=== PATIENT | male | born 1955 | race Caucasian/White ===

== ENCOUNTER 2016-11-09 12:36 | Inpatient (IN) | payer OTHER, MEDICARE ==
[~2016-11-09] VITALS: Ht 165.1 cm; Wt 70.8 kg
[~2016-11-09 12:36] MED LIST: ALPRAZOLAM0.5 M4 PO; ATIVAN0.5 M1 PO; CALTRATE 600 +1 EACH PO; COLACE100 M1 PO; DURAGESIC1 EAC1 TOP; DURAGESIC1 EAC3 TOP; FENTANYL1 EAC2 TOP; FENTANYL1 EAC3 TOP; FLUOXETINE HCL20 M2 PO; GUAIFENESIN ER600 MG PO; HYDROMORPHONE HC4 M1 PO; KETOROLAC TROME10 M1 PO; LEVAQUIN500 M1 PO; MIRALAX17 G1 PO; OXYCODONE HCL15 M1 PO; OXYCODONE HCL5 M2 PO; OXYCONTIN20 M1 PO; PREDNISONE5 M1 PO; REMERON15 M2 PO; VITAMIN D31000 UNI2 PO; ZOFRAN ODT4 M1 SL
--- NOTE | 2016-11-09 12:43 | NUR ---
PT STATES PAIN ALL OVER DUE TO BONE CANCER.
--- NOTE | 2016-11-09 12:54 | NUR ---
PT MOVED DIRECTLY FROM TRIAGE TO A STRETCHER IN THE [place] , PT THEN MOVED DIRECTLY TO ROOM SOON ONE OPENED UP . PTS COMPLAINING TO THIS NURSE AND TRIAGE NURSE THAT SHE WAS VERY UPSET WITH THE STAFF FROM THE LAST VISIT AND THAT HE WAS IN THE WAITING ROOM TO LONG AND HAD TO LAY ON THE FLOOR , DUE TO HIS PAIN. PT SHOWING THE TRIAGE NURSE PICTURES ON HER PHONE OF THE PATIENT LAYING ON THE FLOOR.
--- NOTE | 2016-11-09 13:13 | NUR ---
PT CHANGED INTO GOWN. REPORTS PAIN PRIMARILY TO JOINTS AND ARMS/LEGS. DIFFICULTY WALKING TODAY. PER "HE REALLY NEEDS A SHOT OF SOMETHING FOR PAIN." AND HE RECENTLY HAD BLOOD TRASFUSION THIS PAST WEEK. PIN ATTACHER/ONCOLOGIST IS DR RAMIREZ. PT DENIES CP OR SOB, SINUS TACH 110 ON CM. LIGHTS DIMMED FOR COMFORT AND TV ON PER REQUEST. AWARE OF PLAN FOR EVAL BY MD PRIOR TO MEDICATION INTERVENTION
--- NOTE | 2016-11-09 13:41 | NUR ---
INFORMED WAITING PROVIDED REGARDING EVAL BY MD WHO WILL BE IN SHORTLY. PT IS CALM AND COMFORTABLE AT THIS TIME WHILE NOT MOVING. AT BEDSIDE FOR SUPPORT
--- NOTE | 2016-11-09 13:56 | NUR ---
DR CRUZ IN ROOM FOR EVALUATION
--- NOTE | 2016-11-09 14:05 | ED GENERAL ADULT ---
History of Present Illness General Chief Complaint: General Adult Stated Complaint: PER , "HAS PAIN DUE TO BONE CANCER" Source: patient, family, old records Exam Limitations: no limitations Vital Signs & Intake/Output Vital Signs & Intake/Output Vital Signs Date Time Temp Pulse Resp B/P Pulse O2 O2 Flow FiO2 Ox Delivery Rate 11/09 1828 98.9 98 18 116/62 98 Room Air 11/09 1655 100.0 11/09 1618 101.0 11/09 1542 101.0 120 18 118/70 94 Room Air 11/09 1501 98.9 112 18 124/63 99 Room Air 11/09 1316 97 Room Air 11/09 1241 97.9 111 22 121/83 97 Room Air Allergies Coded Allergies: clams (Intermediate, UNKNOWN REACTION TO RAW CLAMS 09/04/16) Reconcile Medications Calcium Carbonate/Vitamin D3 (Caltrate 600 + D Tablet) 1 EACH TABLET 1 TAB PO BID SUPPLEMENT (Reported) Cholecalciferol (Vitamin D3) 1,000 UNIT TABLET 2 TAB PO DAILY SUPPLEMENT ( Reported) Docusate Sodium (Colace) 100 MG CAPSULE 1 CAP PO BID STOOL SOFTENER (Reported ) Fentanyl Citrate (Duragesic) 75 MCG/HOUR PATCH.TD72 1 PAT TOP Q72H SEVERE PAIN Fluoxetine HCl 20 MG CAPSULE 1 CAP PO DAILY MENTAL HEALTH (Reported) Lorazepam (Ativan) 0.5 MG TABLET 2 TAB PO QPM PRN ANXIETY (Reported) Ondansetron (Zofran Odt) 4 MG TAB.RAPDIS 1 TAB SL TID PRN NAUSEA/VOMITING ( Reported) Oxycodone HCl 15 MG TABLET 1 TAB PO Q4 PAIN (Reported) Polyethylene Glycol 3350 (Miralax) 17 GM POWD.PACK 1 PAC PO DAILY CONSTIPATION (Reported) dissolve in water Triage Note: PT STATES PAIN ALL OVER DUE TO BONE CANCER. Triage Nurses Notes Reviewed? yes HPI: Patient presents for evaluation of severe diffuse bone pain secondary to metastatic prostate cancer. Patient's pain is constant and severe sharp and stabbing. There is nothing that seems to make his pain feel better including narcotic pain relievers by mouth. His pain worsens with virtually any movement and he is severely debilitated by pain. Past History Travel History Traveled to [place] past 21 day No Medical History Any Pertinent Medical History? see below for history Neurological: NONE EENT: NONE Cardiovascular: NONE Respiratory: NONE Gastrointestinal: CONSTIPATION Hepatic: NONE Renal: NONE Musculoskeletal: ARTHRITIS METASTATIC CA TO BONE Psychiatric: NONE Endocrine: NONE Blood Disorders: NONE Cancer(s): METASTATIC PROSTATE CA BONE CA History of MRSA: No History of VRE: No History of CDIFF: No Surgical History Surgical History: non-contributory Psychosocial History Who do you live with Family What is your primary language Irish Tobacco Use: Quit >30 days ago ETOH Use: denies use Illicit Drug Use: denies illicit drug use Family History Family History, If Any: MOTHER (Diabetes mellitus). SISTER (Breast cancer). Hx Contributory? No Review of Systems Review of Systems Constitutional: Reports: no symptoms. EENTM: Reports: no symptoms. Respiratory: Reports: no symptoms. Cardiovascular: Reports: no symptoms. GI: Reports: no symptoms. Genitourinary: Reports: no symptoms. Musculoskeletal: Reports: see HPI. Skin: Reports: no symptoms. Neurological/Psychological: Reports: no symptoms. Hematologic/Endocrine: Reports: no symptoms. Immunologic/Allergic: Reports: no symptoms. All Other Systems: Reviewed and Negative Physical Exam Physical Exam General Appearance: SEE BELOW Comments: Gen.: Well-nourished, well-developed, no acute respiratory distress. Mild distress at rest, severe distress with movement. Head: Normocephalic, atraumatic. Eyes: Normal inspection bilaterally Ears: Normal inspection bilaterally Nose: Normal inspection Throat/mouth : Moist mucosa Neck: Supple, full range of motion, no goiter Heart: Regular rate and rhythm, no murmurs rubs or gallops Lungs: Clear to auscultation bilaterally with normal air entry Chest: Nontender Back: Normal range of motion Abdomen: Soft, nontender, nondistended, normal bowel sounds Extremities: Decreased range of motion secondary to pain, equal radial pulses, no cyanosis clubbing or edema Neurologic: Cranial nerves grossly intact, speech is clear Skin: warm and dry Psychiatric: Calm, cooperative, no apparent delusions or hallucinations Core Measures ACS in differential dx? No CVA/TIA Diagnosis: No Severe Sepsis Present: No Septic Shock Present: No Progress Differential Diagnoses I considered the following diagnoses in my evaluation of the patient: Chronic pain, pneumonia, UTI, bacteremia Plan of Care: Orders Procedure Date/time Status LACTIC ACID 11/09 2205 Active Admit to inpatient 11/09 1908 Active LACTIC ACID 11/09 1905 Active Add-on Test (ER Only) 11/09 1558 Active CULTURE,URINE 11/09 1548 Active BLOOD CULTURE 11/09 1548 Active URINALYSIS 11/09 1548 Complete COMPREHENSIVE METABOLIC PANEL 11/09 1503 Complete CBC WITHOUT DIFFERENTIAL 11/09 1404 Complete Laboratory Tests 11/09/16 1631: Urinalysis LIGHT H, Urine Color YEL, Urine Clarity CLEAR, Urine pH 6.5, Ur Specific [place] 1.020, Urine Protein 30 H, Urine Ketones NEG, Urine Nitrite NEG, Urine Bilirubin NEG, Urine Urobilinogen 0.2, Ur Leukocyte Esterase NEG, Ur Microscopic SEDIMENT EXAMINED, Urine RBC 1-3, Urine WBC RARE, Ur Epithelial Cells FEW, Urine Mucus FEW, Urine Hemoglobin SMALL H, Urine Glucose NEG 11/09/16 1548: Sodium Cancelled, Potassium Cancelled, Chloride Cancelled, Carbon Dioxide Cancelled, Anion Gap Cancelled, BUN Cancelled, Creatinine Cancelled, BUN/ Creatinine Ratio Cancelled, Glucose Cancelled, Calcium Cancelled, Total Bilirubin Cancelled, AST Cancelled, ALT Cancelled, Alkaline Phosphatase Cancelled, Total Protein Cancelled, Albumin Cancelled, Globulin Cancelled, Albumin/Globulin Ratio Cancelled 11/09/16 1503: Anion Gap 7, Estimated GFR > 60, BUN/Creatinine Ratio 26.0 H, Glucose 108 H, Calcium 8.8, Total Bilirubin 0.6, AST 104 H, ALT 29, Alkaline Phosphatase 584 H, Total Protein 5.7 L, Albumin 3.3 L, Globulin 2.4, Albumin/Globulin Ratio 1.4, CBC w Diff MAN DIFF ORDERED, RBC 3.15 L, MCV 83.7, MCH 28.3, RDW 18.8 H, MPV 7.2 L, Gran % 90.8 H, Lymphocytes % 5.2 L, Monocytes % 3.6, Eosinophils % 0.2, Basophils % 0.2, Absolute Granulocytes 7.1 H, Segmented Neutrophils 78 H, Band Neutrophils 8 H, Absolute Lymphocytes 0.4 L, Lymphocytes 6 L, Monocytes 6, Absolute Monocytes 0.3, Absolute Eosinophils 0, Basophils 1, Absolute Basophils 0, Metamyelocytes 1, Nucleated RBCs 2 H, Platelet Estimate ADEQUATE, Hypochromic-Microcytic 1+, Poikilocytosis 2+, Anisocytosis 1+, Ovalocytes , Elliptocytes , PUBS MCHC 33.7 Microbiology 11/09 1810 BLOOD: Blood Culture - RECD 11/09 1645 BLOOD: Blood Culture - RECD 11/09 1631 URINE ROUT: Urine Culture - RECD Diagnostic Imaging: Discussed w/RAD: Radiology Read. CXR Impression: PATIENT: RACQUEL RAO PRESENT AGE : 61 PATIENT ACCOUNT NO: [id number] : 56 LOCATION: [facility] ORDERING PHYSICIAN: TARSHA CRUZ MD SERVICE DATE: 11/09/166043 EXAM TYPE: RAD - XRY-PORTABLE CHEST XRAY EXAMINATION: XR PORTABLE CHEST CLINICAL INFORMATION: Fever. History of prostate cancer to bone. COMPARISON: Chest radiography 2015. TECHNIQUE: Portable AP view of the chest was obtained. FINDINGS: Right subclavian Port-A-Cath. Radiodensities overlying the right thorax are presumably external to the patient. The lungs are fairly well expanded. No definitive new lobar consolidation to suggest pneumonia. Persistent mild streaky bibasilar opacities may represent atelectasis. No mediastinal widening. Diffuse sclerotic osseous metastatic disease. IMPRESSION: 1. No convincing evidence of pneumonia. 2. Persistent bibasilar streaky opacification may represent atelectasis. 3. Diffuse osseous sclerotic metastatic disease. DICTATED BY: HALINA BALL MD DATE/TIME DICTATED:11/09/161631 CERAMIC CHEMIST:MISTY DATE/TIME TRANSCRIBED:11/09/161631 CONFIDENTIAL, DO NOT COPY WITHOUT APPROPRIATE AUTHORIZATION. <Electronically signed in Other Vendor System> SIGNED BY: HALINA BALL MD 11/09/16 164 Initial ED EKG: none Comments: 11/09/2016 5:55:33 PM racquel and his have been updated on test results. He is still experiencing diffuse bone pain. It is not clear if his IV is functional at this point and it will need to be repositioned. Once this is done the patient will receive IV antibiotics and additional pain medication. 11/09/2016 7:04:31 PM patient's case discussed with Dr. Mckeon. Patient will be admitted and treated with IV antibiotics to prevent sepsis (I do not feel the patient is septic at this time). His fever and tachycardia have resolved with a dose of acetaminophen. I feel his clinical presentation is also inconsistent with sepsis. Departure Departure Disposition: STILL A PATIENT Condition: Stable Clinical Impression Primary Impression: Fever Qualifiers: Fever type: unspecified Qualified Code: R50.9 - Fever, unspecified Secondary Impressions: Intractable pain, Prostate cancer metastatic to bone Referrals: SARAH ABRAHAM,PATRICE Lopez (PCP/Family) Departure Forms: Customer Survey General Discharge Information Admission Note Spoke With: BEBE MCKEON MD Documentation of Exam: Documentation of any treatments & extenuating circumstances including Concerns Regarding Discharge (functional status, medication knowledge or non-compliance, living conditions, etc.) that warrant an admission rather than observation: Patient has a debilitating combination of intractable back pain requiring IV narcotic pain relievers along with relative immune compromise and fever. This patient is at very high risk of overwhelming sepsis and . He is not a good candidate for outpatient management given this and the fact that he has a debilitating bone pain secondary to metastatic prostate cancer that is severely compromised his ability to move. I feel he would have great difficulty in complying with outpatient treatment. He very likely would return in worse clinical condition. I feel he now requires an aggressive management with IV antibiotics and close clinical monitoring of vital signs and temperature. Culture results should be followed and treated accordingly. He should also have IV narcotic pain relievers and pain management consultation. Given his difficulty in moving, physical therapy consultation should also be obtained. Feel he will require a multiple day hospitalization. Critical Care Note Critical Care Note Critical Care Time: 30-74 min
--- NOTE | 2016-11-09 14:59 | NUR ---
PORT ACCESSED WITH 1.5INCH 20G POWER PORT. FLUSHES WELL, NO BLOOD RETURN. PT MEDICATED PER eMAR FOR PAIN
--- NOTE | 2016-11-09 15:06 | NUR ---
BLOOD DRAWN AND SENT TO LAB. SST,LAV,BLUE
[2016-11-09 15:13] LABS: ABSOLUTE BASOPHIL COUNT 0 /CUMM (0.0-0.2); ABSOLUTE EOSINOPHIL COUNT 0 /CUMM (0.0-0.7); ABSOLUTE GRANULOCYTE CT 7.1 /CUMM (1.4-6.5); ABSOLUTE LYMPH COUNT 0.4 /CUMM (1.2-3.4); ABSOLUTE MONOCYTE COUNT 0.3 /CUMM (0.10-0.60); BASOPHIL % 0.2 % (0.0-2.0); EOSINOPHIL % 0.2 % (0-5); GRANULOCYTE % 90.8 % (42.2-75.2); HEMATOCRIT 26.4 % (42-52); MEAN CORPUSCULAR HGB 28.3 PG (27.0-31.0); MEAN CORPUSCULAR HGB CONC 33.7 G/DL (33.0-37.0); MEAN CORPUSCULAR VOLUME 83.7 FL (80.0-94.0); MEAN PLATELET VOLUME 7.2 FL (7.4-10.4); PLATELET COUNT 182 /CUMM (130-400); RBC DISTRIBUTION WIDTH 18.8 % (11.5-14.5); RED BLOOD CELL CT 3.15 /CUMM (4.70-6.10); WHITE BLOOD CELL COUNT 7.8 /CUMM (4.8-10.8)
--- NOTE | 2016-11-09 16:18 | NUR ---
IV ACETOMINOPHEN STARTED. PT SENT TO RADIOLOGY. ASKED PT IF HIS PAIN IS IMPROVED AND HE STATES HE DOES NOT KNOW BECAUSE HE HASNT TRIED TO MOVE YET. STATES NO PAIN AT REST
--- NOTE | 2016-11-09 16:32 | NUR ---
PT NOT TAKEN TO XRAY, PCXR DONE. PT STOOD TO VOID. COMPLAINED OF PAIN IN MULTIPLE PLACES, RIGHT LEG, BACK, SHOULDERS WITH MOVEMENT. ASSISTED BACK ON TO STRETCHER IN COMFORTABLE POSITION. IVF STARTED AT 150CC/HR. DR CRUZ IN TO SEE PT AND IS AWARE OF PT COMPLAINTS OF PAIN WITH MOVEMENT
--- NOTE | 2016-11-09 16:36 | NUR ---
URINE TRIO SENT TO LAB.
--- NOTE | 2016-11-09 16:46 | RADIOLOGY REPORT ---
EXAMINATION: XR PORTABLE CHEST CLINICAL INFORMATION: Fever. History of prostate cancer to bone. COMPARISON: Chest radiography 09/04/2016. TECHNIQUE: Portable AP view of the chest was obtained. FINDINGS: Right subclavian Port-A-Cath. Radiodensities overlying the right thorax are presumably external to the patient. The lungs are fairly well expanded. No definitive new lobar consolidation to suggest pneumonia. Persistent mild streaky bibasilar opacities may represent atelectasis. No mediastinal widening. Diffuse sclerotic osseous metastatic disease. IMPRESSION: 1. No convincing evidence of pneumonia. 2. Persistent bibasilar streaky opacification may represent atelectasis. 3. Diffuse osseous sclerotic metastatic disease.
--- NOTE | 2016-11-09 17:48 | NUR ---
DR CRUZ IN TO SEE PT AND DISCUSS PLAN TO ADMIT. PORT A CATH OBSERVED AND NOTED TO HAVE SOFT SWELLING AROUND INSERTION SITE. ATTEMPTED TO DRAW BACK BLOOD RETURN, UNABLE TO GET BLOOD RETURN. WILL REMOVE NEEDLE AND REINSERT NEW LINE. DR CRUZ AWARE OF ABOVE STATEMENTS
--- NOTE | 2016-11-09 18:24 | NUR ---
NEW PORT A CATH NEEDLE INSERTED. BLOOD RETURN OBTAINED UPON ISERTION
--- NOTE | 2016-11-09 18:34 | NUR ---
PT REQUESTING PRIVATE ROOM WHEN ADMITTED. PLAN NURSE NOTIFIED.
--- NOTE | 2016-11-09 20:05 | NUR ---
PT RESTING QUIELTY, TALKING WITH FAMILY. LESS ANXIOUS THEN EARLIER. STATES ONLY PARTIAL PAIN RELIEF WITH DILAUDID THAT WAS GIVEN. DR MORALEZ NOTIFIED AND ADDITIONAL DOSE OF DILAUDID GIVEN.
--- NOTE | 2016-11-09 20:30 | NUR ---
HOUSE STAFF AT BEDSIDE FOR PT EVAL
--- NOTE | 2016-11-09 20:53 | NUR ---
PT HAS BED ASSIGNMENT 217
--- NOTE | 2016-11-09 21:06 | NUR ---
PT ASSISTED TO STAND FOR USE OF URINAL, PT BACK IN BED, REPOSITIONED FOR COMFORT, HOUSE STAFF AT BEDSIDE
[2016-11-09] MEDS ORDERED: LORAZEPAM0.5 M1 PO (21:33)
--- NOTE | 2016-11-09 21:41 | NUR ---
REPORT GIVEN TO [facility] ON [address] [place] [address]. PT TO BE MEDICATED WITH OXYCODONE PRIOR TO TRANSFER. VERIFIED PT HAS FENTANYL PATCH ON UPPER LEFT BACK NEAR SHOULDER BLADE. [facility] RN ON [address] [place] [address] NOTIFIED OF THIS.
--- NOTE | 2016-11-09 21:52 | NUR ---
PT WITH DECREASED SWELLING IN RIGHT CHEST AROUND PORT A CATH.
--- NOTE | 2016-11-09 22:02 | NUR ---
DISTRIBUTION HERE FOR TRANSPORT
--- NOTE | 2016-11-09 22:08 | Admission Certification ---
Admission Certification Certification Statement - As attending physician, I certify that at the time of - admission, based on clinical presentation, severity of - symptoms, need for further diagnostic testing and - therapeutic interventions, and risk of adverse outcomes - without in-hospital treatment, in my clinical assessment, - this patient requires an acute hospital stay for a minimum - of two nights or longer. I have also considered psychsocial - factors such as support system, advanced age, financial - issues, cognitive issues, and failed out-patient treatments, - past re-admission history, safety of patient, and lack of - compliance as applicable. Specific rationale supporting this admission is: Weakness, inability to ambulate, diffuse bone pain in this patient with stage 4 prostate cancer undergoing chemotherapy. Also, noted to have fever of 101 - SIRS without a clear source of infection.
[2016-11-09 22:29] VITALS: BP 122/72
--- NOTE | 2016-11-09 23:42 | History & Physical ---
GERALD SMITH 11/09/16 3941: General Information and HPI MD Statement: I have seen and personally examined RACQUEL RAO and documented this H&P. The patient is a 61 year old M who presented with a patient stated chief complaint of []. Source of Information: patient, family, old records Exam Limitations: no limitations History of Present Illness: He is 61-year-old man with past medical history of advanced hormone refractory prostate cancer with bone metastasis status post radiotherapy in 2016 for 6 months and on chemotherapy, mitoxantrone, every 3 weeks. Last chemotherapy was on October 17. Patient has an appointment with radiation oncologist for nuclear treatment on Thursday this week. He also has history of anxiety/depression and diffuse bone pain taking fentanyl and oxycodone at home. He presented to ER with complaint of generalized bone pain and inability to walk today because of severe pain. He describes pain as constant and stabbing, 10/10 in intensity. He feels pain whenever he tries to move. Patient also spiked temperature to 101 while in ER. Per patient had fever of 101 couple of weeks ago but she did not bring him here or called oncologist, Dr. Montilla. Currently patient reports some tingling sensation in his abdomen and chronic cough and denies any chest pain or discomfort, palpitations, dizziness or lightheadedness, breathing difficulty, nausea, vomiting, diarrhea, constipation, any urinary symptoms. Patient had history of anemia and got 2 units of blood transfusions last week and one week prior to blood transfusion he got filgrastim for neutropenia. Patient lives with his family. No history of smoking, alcohol, illicit drug use. Allergies/Medications Allergies: Coded Allergies: clams (Intermediate, UNKNOWN REACTION TO RAW CLAMS 09/04/16) Home Med list Calcium Carbonate/Vitamin D3 (Caltrate 600 + D Tablet) 1 EACH TABLET 1 TAB PO BID SUPPLEMENT (Reported) Cholecalciferol (Vitamin D3) 1,000 UNIT TABLET 2 TAB PO DAILY SUPPLEMENT ( Reported) Docusate Sodium (Colace) 100 MG CAPSULE 1 CAP PO BID STOOL SOFTENER (Reported ) Fentanyl Citrate (Duragesic) 75 MCG/HOUR PATCH.TD72 1 PAT TOP Q72H SEVERE PAIN Fluoxetine HCl 20 MG CAPSULE 1 CAP PO DAILY MENTAL HEALTH (Reported) Lorazepam 0.5 MG TABLET 1 TAB PO Q4 HRS NEEDED ANXIETY (Reported) Ondansetron (Zofran Odt) 4 MG TAB.RAPDIS 1 TAB SL TID PRN NAUSEA/VOMITING ( Reported) Oxycodone HCl 15 MG TABLET 1 TAB PO Q4 PAIN (Reported) Polyethylene Glycol 3350 (Miralax) 17 GM POWD.PACK 1 PAC PO DAILY CONSTIPATION (Reported) dissolve in water Compliance With Home Meds: GOOD Past History Travel History Traveled to [place] past 21 day No Medical History Neurological: NONE EENT: NONE Cardiovascular: NONE Respiratory: NONE Gastrointestinal: CONSTIPATION Hepatic: NONE Renal: NONE Musculoskeletal: ARTHRITIS METASTATIC CA TO BONE Psychiatric: NONE Endocrine: NONE Blood Disorders: NONE Cancer(s): METASTATIC PROSTATE CA BONE CA History of MRSA: No History of VRE: No History of CDIFF: No Isolation History: Standard Surgical History Surgical History: non-contributory ECHO Results (as available) Date of last Echo 06/24/16 EF% 65 Past Family/Social History Family History Relations & Conditions if any MOTHER (Diabetes mellitus). SISTER (Breast cancer). Psychosocial History Who Do You Live With? spouse Smoking Status: Never Smoked ETOH Use: denies use Illicit Drug Use: denies illicit drug use Living Will? yes Review of Systems Review of Systems Constitutional: Reports: see HPI. Exam & Diagnostic Data Last 24 Hrs of Vital Signs/I&O Vital Signs Date Time Temp Pulse Resp B/P Pulse O2 O2 Flow FiO2 Ox Delivery Rate 11/099 99.1 98 20 122/72 97 Room Air 11/093 97.6 90 18 130/74 97 Room Air 11/09 1828 98.9 98 18 116/62 98 Room Air 11/09 1655 100.0 11/09 1618 101.0 11/09 1542 101.0 120 18 118/70 94 Room Air 11/09 1501 98.9 112 18 124/63 99 Room Air 11/09 1316 97 Room Air 11/09 1241 97.9 111 22 121/83 97 Room Air Intake & Output 11/09 1600 11/09 0800 11/09 0000 Intake Total Output Total Balance Patient 156 lb Weight Physical Exam General Appearance Alert, Oriented X3, Cooperative Skin No Rashes, Port-A-Cath on right upper chest Neck Supple Cardiovascular tachycardia Lungs Clear to Auscultation Abdomen Normal Bowel Sounds, Soft, No Tenderness Extremities No Edema, Normal Pulses Last 24 Hrs of Labs/Daren: Laboratory Tests 11/09/16 1920: Lactic Acid 0.6 L 11/09/16 1906: Lactic Acid Cancelled 11/09/16 1631: Urinalysis LIGHT H, Urine Color YEL, Urine Clarity CLEAR, Urine pH 6.5, Ur Specific [place] 1.020, Urine Protein 30 H, Urine Ketones NEG, Urine Nitrite NEG, Urine Bilirubin NEG, Urine Urobilinogen 0.2, Ur Leukocyte Esterase NEG, Ur Microscopic SEDIMENT EXAMINED, Urine RBC 1-3, Urine WBC RARE, Ur Epithelial Cells FEW, Urine Mucus FEW, Urine Hemoglobin SMALL H, Urine Glucose NEG 11/09/16 1548: Sodium Cancelled, Potassium Cancelled, Chloride Cancelled, Carbon Dioxide Cancelled, Anion Gap Cancelled, BUN Cancelled, Creatinine Cancelled, BUN/ Creatinine Ratio Cancelled, Glucose Cancelled, Calcium Cancelled, Total Bilirubin Cancelled, AST Cancelled, ALT Cancelled, Alkaline Phosphatase Cancelled, Total Protein Cancelled, Albumin Cancelled, Globulin Cancelled, Albumin/Globulin Ratio Cancelled 11/09/16 1503: Anion Gap 7, Estimated GFR > 60, BUN/Creatinine Ratio 26.0 H, Glucose 108 H, Calcium 8.8, Total Bilirubin 0.6, AST 104 H, ALT 29, Alkaline Phosphatase 584 H, Total Protein 5.7 L, Albumin 3.3 L, Globulin 2.4, Albumin/Globulin Ratio 1.4, CBC w Diff MAN DIFF ORDERED, RBC 3.15 L, MCV 83.7, MCH 28.3, RDW 18.8 H, MPV 7.2 L, Gran % 90.8 H, Lymphocytes % 5.2 L, Monocytes % 3.6, Eosinophils % 0.2, Basophils % 0.2, Absolute Granulocytes 7.1 H, Segmented Neutrophils 78 H, Band Neutrophils 8 H, Absolute Lymphocytes 0.4 L, Lymphocytes 6 L, Monocytes 6, Absolute Monocytes 0.3, Absolute Eosinophils 0, Basophils 1, Absolute Basophils 0, Metamyelocytes 1, Nucleated RBCs 2 H, Platelet Estimate ADEQUATE, Hypochromic-Microcytic 1+, Poikilocytosis 2+, Anisocytosis 1+, Ovalocytes , Elliptocytes , PUBS MCHC 33.7 Microbiology 11/09 1810 BLOOD: Blood Culture - RECD 11/09 1645 BLOOD: Blood Culture - RECD 11/09 1631 URINE ROUT: Urine Culture - RECD Diagnostic Data CXR Results No evidence of pneumonia. Persistent bilateral basilar streaky opacification likely atelectasis. Diffuse osseous metastatic disease. Assessment/Plan Assessment: He is 61-year-old man with past medical history of stage IV prostate cancer status post radiotherapy and chemotherapy, anxiety and depression presented today with complaint of intractable and debilitated diffuse bone pain. He is going to be admitted on general medicine floor. Problem list 1. Intractable and debilitated diffuse bone pain secondary to bone metastases. Patient is on fentanyl and oxycodone at home 2. SIRS. Temperature was 101, tachycardia and tachypnea. WBC count is 7.8. Etiology unknown. Patient got 1 dose of IV Unasyn in ER. Blood and urine cultures were sent. 3. Normocytic anemia. H&H 8.9/26.4. Patient had 2 units of blood transfusions last week. 4. Hyponatremia. Sodium 135. 5. Abnormal LFTs. AST 104 and alkaline phosphatase 584. Elevated AST could be because of side effects of pain medications. Elevated alkaline phosphatase could be from Bone. PLAN Vitals every shift. Pain management with home dose of fentanyl and oxycodone. We will start morphine 4 mg IV every 4 hours as needed for severe or breakthrough pain. Bowel regimen. Continue other home medications. Oncology consult in a.m. Follow-up blood and urine cultures. We will keep patient off antibiotics. If patient spikes fever persistently then we can start him on antibiotics. Daily CBC. Subcutaneous Lovenox for DVT prophylaxis. Regular diet. DNR/DNI. As Ranked By This Provider Problem List: 1. Chronic pain syndrome Core Measures/Miscellaneous Acute Coronary Syndrome ACS Diagnosis: No Cerebrovascular Accident CVA/TIA Diagnosis: No Congestive Heart Failure CHF Diagnosis: No Venous Thromboembolism VTE Risk Factors: Acute medical illness, Age > 40 VTE Prophylaxis Ordered Inpt: Pharm- [facility]ovenox [facility] prophylaxis d/t: No contraindications No VTE Pharm Prophylaxis d/t: No contraindications VTE Diagnosis: No VTE Type: NONE VTE Confirmed by (Test): NONE Severe Sepsis Severe Sepsis Present: No Septic Shock Septic Shock Present: No Miscellaneous Documentation Attending Case Discussed With: BEBE MCKEON MD Primary Care Physician: PATRICE SMITH MD Patient sees these Specialists Dr. Montilla Level of Patient Care: General Medicine Consults Needed: Consulting Specialty: Hematology/Oncology LEATHA MCKEON MD 11/10/16 0118: Attending MD Review Statement Attending Statement Attending MD Statement: examined this patient, discuss w/resident/PA/PACKAGE LINE RELIEF OPERATOR, agreed w/resident/PA/PACKAGE LINE RELIEF OPERATOR Attending Assessment/Plan: 61 yo M with h/o anxiety, stage 4 hormone refractory prostate cancer with bone metastasis s/p radiotherapy currently on chemotherapy (mitoxantrene), chronic pain on opiates is here with diffuse bone pains especially over the upper back, anterior chest, bilateral upper extremities and right leg with inability to ambulate. Any movement causes him pain. Last admitted Aug 2016 for similar concerns, Neuro consulted and patient was advised to restart dexamethasone which he refused. reports he is on Fentanyl patch and oxycodone 15 mg Q4. He is not compliant with the oxycodone and takes ibuprofen as needed but this does not seem to help anymore. Weakness+. Poor appetite, weight loss of 30 lbs over past few months. Chronic occasional cough. Constipation+, no diarrhea or urinary symptoms. Last chemotherapy was on Oct 17. He gets chemo every 3 weeks. He was due for chemo last week, but his WBC count was low so he was given Filgrastim ( Zarxio). He received 2 units of PRBC on the following Thursday. Patient is scheduled to follow up for nuclear therapy this week (Dr. Luis Alberto Martinez [facility]). Vitals: Tmax 101, HR 100-110's, sats 97% RA, BP 122/72. Exam: cachectic male, AAO, in mild distress due to pain, dry mucous membranes, no pallor or cyanosis. Right chest port-a-cath site is C/D/I. Chest b/l clear, Heart S1S2 regular, Abd soft, BS+, c/o tingling sensation to left abdomen. LE: no edema. He was able to get up off the bed with much difficulty given the diffuse bone pains, was able to stand with assistance and urinate. No focal deficits. Labs: H/H 8.9/26.4, WBC 7.8, bands 8, AST 104, Alk phos 584, lactic acid normal, UA clear, CXR: diffuse osseous metastatic disease, atelectasis, no pneumonia. 1. Intractable bone pain in the setting of stage 4 metastatic prostate cancer. Resume fentanyl patch 75 mcg Q3 days, oxycodone 15 mg Q4 hourly, IV morphine 4 mg Q4 PRN for pain. Bowel regime while on opiates. If this does not help control his pain, can consider CARPENTER MATE pump. Oncology consult in AM. ?consider restarting steroids if patient agrees. 2. SIRS (fever, tachycardia) with no clear source of infection. Panculture, patient received IV Unasyn in ER. Will monitor off antibiotics for now. 3. Metastatic prostate CA. Patient is scheduled to see Dr. Martinez on Thursday followed by plan for nuclear therapy on Thursday. is unable to take the patient for the consulting session on Thursday and wishes to get the therapy done without the need for consultation. Please discuss this further with Dr. Aguilar. 4. Normocytic chronic anemia. Stable s/p recent PRBC. 5. Depression/ anxiety. Ct. Fluoxetine and ativan 0.5 mg PRN. DVT ppx Lovenox. DNR/I.
--- NOTE | 2016-11-10 03:05 | NUR ---
LATE ENTRY: PT ADMITTED FROM ER VIA STETCHER. A/O X 3. RA. SKIN CDI. PORTOCATH TO RCW. VSS. AFEBRILE. PAIN 10/10 MEDICATED WITH PRN MORPHINE ORDERED. WILL CONTINUE TO MONITOR.
[2016-11-10 08:54] VITALS: BP 122/70
--- NOTE | 2016-11-10 08:56 | PN- Housestaff ---
ALFREDA ABRAHAM,KASIA 11/10/16 0856: Subjective Follow-up For: fever, intractable pain Complaints: pain scale (0-10) (10/10) Subjective: Pt was seen and examined at bedside. He was in mild distress even though he just got pain medication. He states his pain is all over his body, and even touching hime would cause pain. He has been having chronic pain secondary to prostate cacner to bone metastasis following Dr. Aguilar. Review of Systems Constitutional: Reports: see HPI (pain all over body), chills, fever, weakness. EENTM: Reports: no symptoms. Cardiovascular: Denies: chest pain, palpitations, peripheral edema, syncope. Respiratory: Denies: cough, short of breath, sputum production, wheezing. Gastrointestinal: Denies: abdominal pain, nausea, vomiting. Genitourinary: Denies: dysuria. Musculoskeletal: Reports: see HPI, back pain, joint pain, muscle pain. Skin: Reports: no symptoms. Neurological/Psychological: Reports: weakness. Hematologic/Endocrine: Reports: see HPI. Immunologic/Allergic: Reports: see HPI. Objective Last 24 Hrs of Vital Signs/I&O Vital Signs Date Time Temp Pulse Resp B/P Pulse O2 O2 Flow FiO2 Ox Delivery Rate 11/10 0854 98.4 112 20 122/70 92 Room Air 11/09 2229 99.1 98 20 122/72 97 Room Air 11/09 2123 97.6 90 18 130/74 97 Room Air 11/09 1828 98.9 98 18 116/62 98 Room Air 11/09 1655 100.0 11/09 1618 101.0 11/09 1542 101.0 120 18 118/70 94 Room Air 11/09 1501 98.9 112 18 124/63 99 Room Air Intake & Output 11/10 1600 11/10 0800 11/10 0000 Intake Total 720 195 Output Total 600 475 Balance 120 -280 Intake, IV 600 75 Intake, Oral 120 120 Output, Urine 600 475 Patient 156 lb Weight Physical Exam General Appearance: Alert, Oriented X3, Cooperative, Mild Distress Skin: No Rashes, No Breakdown, No Significant Lesion HEENT: Atraumatic, PERRLA, EOMI Neck: Supple, No JVD, No LAD Lymphatic: Cervical nl Cardiovascular: Regular Rate, Normal S2, No Murmurs, tachycardic Lungs: Clear to Auscultation, Normal Air Movement Abdomen: Normal Bowel Sounds, Soft Neurological: Normal Speech, bilateral decreased strength 4/5 Extremities: No Edema, Normal Pulses Vascular: Normal Pulses, Pulses Symmetrical Current Medications: Current Medications Sig/Yessi Start time Last Medication Dose Route Stop Time Status Admin Acetaminophen 0 .STK-MED ONE 11/09 1614 DC IV Acetaminophen 1,000 MG ONCE ONE 11/09 1600 DC 11/09 N/A 1 UNIT IV 11/09 1614 1618 Ampicillin Sodium/ 0 .STK-MED ONE 11/09 1818 DC Sulbactam Sodium .ROUTE Ampicillin Sodium/ 3,000 MG ONCE ONE 11/09 1730 DC 11/09 Sulbactam Sodium IV 11/09 1759 1824 Sodium Chloride 100 ML Calcium 600 MG BID 11/09 2200 AC 11/10 PO 1001 Cholecalciferol 1,000 IU DAILY 11/10 1000 AC 11/10 PO 1001 Dextrose/Sodium 1,000 ML Q13H 11/09 2145 DC 11/09 Chloride IV 11/10 1044 2315 Docusate Sodium 100 MG BID 11/09 2200 AC 11/10 PO 1001 Enoxaparin Sodium 40 MG DAILY 11/10 1000 AC 11/10 SC 1002 Fentanyl Citrate 75 MCG Q72H 11/11 1000 DC TOP Fentanyl Citrate 100 MCG Q72H 11/10 1000 AC 11/10 TOP 1152 Fluoxetine HCl 20 MG DAILY 11/10 1000 AC 11/10 PO 1001 Hydromorphone HCl 0 .STK-MED ONE 11/09 2002 DC .ROUTE Hydromorphone HCl 0.5 MG ONCE ONE 11/09 2000 DC 11/09 IV 11/09 Hydromorphone HCl 0 .STK-MED ONE 11/09 1818 DC .ROUTE Hydromorphone HCl 0.5 MG ONCE ONE 11/09 1800 DC 11/09 IV 11/09 1801 1824 Hydromorphone HCl 0 .STK-MED ONE 11/09 1736 DC .ROUTE Hydromorphone HCl 0.6 MG ONCE ONE 11/09 1715 DC 11/09 IV 11/09 1716 1748 Lorazepam 0.5 MG Q4 HRS NEEDED PRN 11/09 2145 AC 11/10 PO 11/16 2144 0753 Morphine Sulfate 4 MG Q4 HRS NEEDED PRN 02/2144 AC 11/10 IV 1151 Ondansetron HCl 4 MG Q6P PRN 11/09 2144 AC IV Oxycodone HCl 20 MG Q4-PRN PRN 11/10 1000 AC 11/10 PO 0958 Oxycodone HCl 0 .STK-MED ONE 11/09 2144 DC PO Oxycodone HCl 15 MG Q4 11/09 2130 DC 11/10 PO 0622 Polyethylene Glycol 17 GM DAILY 11/10 1000 AC 11/10 PO 1001 Sodium Chloride 1,000 ML ONCE ONE 11/09 1600 DC 11/09 IV 11/09 2239 1634 Last 24 Hrs of Lab/Daren Results Last 24 Hrs of Labs/Mics: Laboratory Tests 11/09/16 1920: Lactic Acid 0.6 L 11/09/16 1906: Lactic Acid Cancelled 11/09/16 1631: Urinalysis LIGHT H, Urine Color YEL, Urine Clarity CLEAR, Urine pH 6.5, Ur Specific [place] 1.020, Urine Protein 30 H, Urine Ketones NEG, Urine Nitrite NEG, Urine Bilirubin NEG, Urine Urobilinogen 0.2, Ur Leukocyte Esterase NEG, Ur Microscopic SEDIMENT EXAMINED, Urine RBC 1-3, Urine WBC RARE, Ur Epithelial Cells FEW, Urine Mucus FEW, Urine Hemoglobin SMALL H, Urine Glucose NEG 11/09/16 1548: Sodium Cancelled, Potassium Cancelled, Chloride Cancelled, Carbon Dioxide Cancelled, Anion Gap Cancelled, BUN Cancelled, Creatinine Cancelled, BUN/ Creatinine Ratio Cancelled, Glucose Cancelled, Calcium Cancelled, Total Bilirubin Cancelled, AST Cancelled, ALT Cancelled, Alkaline Phosphatase Cancelled, Total Protein Cancelled, Albumin Cancelled, Globulin Cancelled, Albumin/Globulin Ratio Cancelled 11/09/16 1503: Anion Gap 7, Estimated GFR > 60, BUN/Creatinine Ratio 26.0 H, Glucose 108 H, Calcium 8.8, Total Bilirubin 0.6, AST 104 H, ALT 29, Alkaline Phosphatase 584 H, Total Protein 5.7 L, Albumin 3.3 L, Globulin 2.4, Albumin/Globulin Ratio 1.4, CBC w Diff MAN DIFF ORDERED, RBC 3.15 L, MCV 83.7, MCH 28.3, RDW 18.8 H, MPV 7.2 L, Gran % 90.8 H, Lymphocytes % 5.2 L, Monocytes % 3.6, Eosinophils % 0.2, Basophils % 0.2, Absolute Granulocytes 7.1 H, Segmented Neutrophils 78 H, Band Neutrophils 8 H, Absolute Lymphocytes 0.4 L, Lymphocytes 6 L, Monocytes 6, Absolute Monocytes 0.3, Absolute Eosinophils 0, Basophils 1, Absolute Basophils 0, Metamyelocytes 1, Nucleated RBCs 2 H, Platelet Estimate ADEQUATE, Hypochromic-Microcytic 1+, Poikilocytosis 2+, Anisocytosis 1+, Ovalocytes , Elliptocytes , PUBS MCHC 33.7 Microbiology 11/09 1810 BLOOD: Blood Culture - RES 11/09 1645 BLOOD: Blood Culture - RES 11/09 1631 URINE ROUT: Urine Culture - RES Lines/Diet/Fluids Lines: peripheral lines Assessment/Plan Assessment: 61 yo male with stage 4 hormone refractory prostate cancer with bone metastasis s/p radiotherapy currently on chemotherapy (mitoxantrene), chronic pain on opiates presented with severe diffuse bone pain especially over the upper back, anterior chest, bilateral upper extremities and right leg with inability to ambulate. Any movement causes him pain. In Aug 2016, neurology was consulted with lumgar spine MRI; patient was advised to restart dexamethasone which he refused. Last chemotherapy was on Oct 17. He gets chemo every 3 weeks. He was due for chemo last week, but his WBC count was low so he was given Filgrastim ( Zarxio). He received 2 units of PRBC on the following Thursday. He is planning to undergo samarium therapy for his symptomatic bone disease. He is seeing Dr. Martinez ([facility]) to discuss and plan the therapy on 11/11. He is scheduled to have the procedure on 11/14. 1. Intractable pain with metastatic prostate cancer: Oncology consult was appreciated. As his pain symptoms were chronic all over his body without specific focus, will increase pain medication; fentanyl patch 100 mcg Q3 days, oxycodone 20 mg Q4 hourly, IV morphine 4 mg Q4 PRN for pain. Continue bowel regime while on opiates. May consider dexamethaxone if patient agrees. Hold off further imaging for chronic nature, and pt will benefit from samarium therapy for symptomatic bone disease. 2. SIRS (fever, tachycardia) with no clear source of infection: blood/urine cultures remain negative. Will monitor off antibiotics for now. 3. Normocytic chronic anemia: s/p 2PRBC at [facility]. Stable. No active signs of bleeding. 4. Depression/ anxiety: continue Fluoxetine and ativan 0.5 mg PRN. pastoral care. 5. Malnutrition with metastatic prostate cancer : pt has decreased oral intake. albumin 3.3. Gentle hydration D5 1/2 NS x 1 bag. Will get nutritional consult. DVT ppx Lovenox. DNR/I. Problem List: 1. Prostate cancer metastatic to bone 2. Intractable pain 3. Fever Pain Ratin Pain Location: Total body Pain Goal: Pain 7 or less Pain Plan: fentanyl patch, po oxycodone, IV morphine Tomorrow's Labs & Rationales: CBC - fever DVT/Prophylaxis: pharmacological Consulting Request: Consulting Specialty: Hematology/Oncology Discharge Plan Stable for Discharge? No WILFRED MILLS MD 11/10/16 9817: Attending MD Review Statement Attending Statement Attending MD Statement: examined this patient, discuss w/resident/PA/EMERGENCY MANAGER, agreed w/resident/PA/EMERGENCY MANAGER, discussed with family, reviewed EMR data (avail), discussed with nursing, amended to note Attending Assessment/Plan: The patient was seen and discussed with house staff and family. PO intake remains poor and will begin IV fluids. Only received 1 dose of IV Unasyn and no fever at present. Will observe off of antibiotics tonight before considering steroid. Will discuss with oncology [id number] (Quadramet) therapy intended, however believe this can only be done as an outpatient.
--- NOTE | 2016-11-10 09:26 | Cons- Oncology ---
General Information and HPI Consulting Request Date of Consult: 11/10/16 Requested By: WILFRED MILLS MD Reason for Consult: Prostate cancer Source of Information: patient, old records Exam Limitations: no limitations History of Present Illness: Mr. Segura is a 61-year-old male with metastatic CRPC who is currently on mitoxantrone under the care of Dr. Aguilar who presented to the hospital with severe diffuse pain. He reports this pain has been persistent and is not new. It has been gradually worsening. Pain is when he moves. Pain is 1000/10 per the patient. It is all over his body. He has a fever yesterday. He states he had fever a few weeks ago too. He denies any shortness of breath. He does have a chronic cough. He has not been sick. He has not eaten anything much in the last 4 days. Because of the worsening pain, he presented to the hospital yesterday. He has metastatic prostate cancer in the bone. He is planning to undergo samarium therapy for his symptomatic bone disease. He is seeing Dr. Martinez to discuss and plan the therapy on 11/11. He is scheduled to have the procedure on 11/14. Allergies/Medications Allergies: Coded Allergies: clams (Intermediate, UNKNOWN REACTION TO RAW CLAMS 09/04/16) Home Med List: Calcium Carbonate/Vitamin D3 (Caltrate 600 + D Tablet) 1 EACH TABLET 1 TAB PO BID SUPPLEMENT (Reported) Cholecalciferol (Vitamin D3) 1,000 UNIT TABLET 2 TAB PO DAILY SUPPLEMENT ( Reported) Docusate Sodium (Colace) 100 MG CAPSULE 1 CAP PO BID STOOL SOFTENER (Reported ) Fentanyl Citrate (Duragesic) 75 MCG/HOUR PATCH.TD72 1 PAT TOP Q72H SEVERE PAIN Fluoxetine HCl 20 MG CAPSULE 1 CAP PO DAILY MENTAL HEALTH (Reported) Lorazepam 0.5 MG TABLET 1 TAB PO Q4 HRS NEEDED ANXIETY (Reported) Ondansetron (Zofran Odt) 4 MG TAB.RAPDIS 1 TAB SL TID PRN NAUSEA/VOMITING ( Reported) Oxycodone HCl 15 MG TABLET 1 TAB PO Q4 PAIN (Reported) Polyethylene Glycol 3350 (Miralax) 17 GM POWD.PACK 1 PAC PO DAILY CONSTIPATION (Reported) dissolve in water Current Medications: Current Medications Sig/Yessi Start time Last Medication Dose Route Stop Time Status Admin Acetaminophen 0 .STK-MED ONE 11/09 1614 DC IV Acetaminophen 1,000 MG ONCE ONE 11/09 1600 DC 11/09 N/A 1 UNIT IV 11/09 1614 1618 Ampicillin Sodium/ 0 .STK-MED ONE 11/09 1818 DC Sulbactam Sodium .ROUTE Ampicillin Sodium/ 3,000 MG ONCE ONE 11/09 1730 DC 11/09 Sulbactam Sodium IV 11/09 1759 1824 Sodium Chloride 100 ML Calcium 600 MG BID 11/09 2200 AC PO Cholecalciferol 1,000 IU DAILY 11/10 1000 AC PO Dextrose/Sodium 1,000 ML Q13H 11/09 2145 AC 11/09 Chloride IV 11/10 1044 2315 Docusate Sodium 100 MG BID 11/09 2200 AC 11/09 PO 2302 Enoxaparin Sodium 40 MG DAILY 11/10 1000 AC SC Fentanyl Citrate 75 MCG Q72H 11/11 1000 AC TOP Fluoxetine HCl 20 MG DAILY 11/10 1000 AC PO Hydromorphone HCl 0 .STK-MED ONE 11/09 2002 DC .ROUTE Hydromorphone HCl 0.5 MG ONCE ONE 11/09 2000 DC 11/09 IV 11/09 2000 2004 Hydromorphone HCl 0 .STK-MED ONE 11/09 1818 DC .ROUTE Hydromorphone HCl 0.5 MG ONCE ONE 11/09 1800 DC 11/09 IV 11/09 1801 1824 Hydromorphone HCl 0 .STK-MED ONE 11/09 1736 DC .ROUTE Hydromorphone HCl 0.6 MG ONCE ONE 11/09 1715 DC 11/09 IV 11/09 1716 1748 Lorazepam 0.5 MG Q4 HRS NEEDED PRN 11/09 2145 AC 11/10 PO 11/16 2144 0753 Morphine Sulfate 4 MG Q4 HRS NEEDED PRN 11/09 2145 AC 11/10 IV 0640 Morphine Sulfate 6 MG ONCE ONE 11/09 1415 DC 11/09 IV 11/09 1416 1500 Morphine Sulfate 0 .STK-MED ONE 11/09 1414 DC .ROUTE Ondansetron HCl 4 MG Q6P PRN 11/09 2145 AC IV Oxycodone HCl 0 .STK-MED ONE 11/09 2145 DC PO Oxycodone HCl 15 MG Q4 11/09 2130 AC 11/10 PO 0622 Polyethylene Glycol 17 GM DAILY 11/10 1000 AC PO Sodium Chloride 1,000 ML ONCE ONE 11/09 1600 DC 11/09 IV 11/09 2269 1634 Review of Systems Review of Systems Constitutional: Reports: fever. Denies: chills. EENTM: Denies: visual changes. Cardiovascular: Denies: chest pain. Respiratory: Reports: cough. Denies: short of breath. GI: Denies: abdominal pain, constipation, diarrhea. Musculoskeletal: Reports: back pain, joint pain, muscle pain. Skin: Denies: rash. Neurological/Psychological: Reports: anxiety. Denies: confusion, depressed. Hematologic/Endocrine: Denies: bruising, bleeding. Immunologic/Allergic: Denies: lymphadenopathy. All Other Systems: Reviewed and Negative Past History Travel History Traveled to [place] past 21 day No Medical History Neurological: NONE EENT: NONE Cardiovascular: NONE Respiratory: NONE Gastrointestinal: CONSTIPATION Hepatic: NONE Renal: NONE Musculoskeletal: ARTHRITIS METASTATIC CA TO BONE Psychiatric: NONE Endocrine: NONE Blood Disorders: NONE Cancer(s): METASTATIC PROSTATE CA BONE CA Surgical History Surgical History: non-contributory Family History Relations & Conditions If Any: MOTHER (Diabetes mellitus). SISTER (Breast cancer). Psychosocial History Who Do You Live With? spouse Smoking Status: Never Smoked ETOH Use: denies use Illicit Drug Use: denies illicit drug use Living Will? yes ECHO Results (as available) Date of last Echo 06/24/16 EF% 65 Exam & Diagnostic Data Vital Signs and I&O Vital Signs Date Time Temp Pulse Resp B/P Pulse O2 O2 Flow FiO2 Ox Delivery Rate 11/10 0854 98.4 112 20 122/70 92 Room Air 11/09 2229 99.1 98 20 122/72 97 Room Air 11/09 2123 97.6 90 18 130/74 97 Room Air 11/09 1828 98.9 98 18 116/62 98 Room Air 11/09 1655 100.0 11/09 1618 101.0 11/09 1542 101.0 120 18 118/70 94 Room Air 11/09 1501 98.9 112 18 124/63 99 Room Air 11/09 1316 97 Room Air 11/09 1241 97.9 111 22 121/83 97 Room Air Intake & Output 11/10 1600 11/10 0800 11/10 0000 Intake Total 720 195 Output Total 600 475 Balance 120 -280 Intake, IV 600 75 Intake, Oral 120 120 Output, Urine 600 475 Patient 70.76 kg Weight Physical Exam General Appearance: no apparent distress Head: atraumatic, normal appearance Eyes: Bilateral: PERRL. Ears, Nose, Throat: normal pharynx Neck: normal inspection Respiratory: normal breath sounds, chest non-tender, no respiratory distress Cardiovascular: tachycardia Gastrointestinal: normal bowel sounds, soft, non-tender Extremities: no edema Neurologic/Psych: awake, alert, oriented x 3 Skin: normal color, warm/dry Lymphatic: no anterior cervical omar Last 48 Hours of Lab Results: Laboratory Tests 11/09 11/09 11/09 1920 1906 1631 Chemistry Lactic Acid (0.7 - 2.1 mmol/L) 0.6 L Cancelled Urines Urinalysis LIGHT H Urine Color (YEL,AMB,STR) YEL Urine Clarity (CLEAR) CLEAR Urine pH (5.0 - 8.0) 6.5 Ur Specific [place] (1.001 - 1.035) 1.020 Urine Protein (NEG,<30 MG/DL) 30 H Urine Ketones (NEG) NEG Urine Nitrite (NEG) NEG Urine Bilirubin (NEG) NEG Urine Urobilinogen (0.1 - 1.0 EU/dl) 0.2 Ur Leukocyte Esterase (NEG) NEG Ur Microscopic SEDIMENT EXAMINED Urine RBC (0 - 5 /HPF) 1-3 Urine WBC (0 - 2 /HPF) RARE Ur Epithelial Cells (NONE,FEW) FEW Urine Mucus (FEW,NONE) FEW Urine Hemoglobin (NEG) SMALL H Urine Glucose (N MG/DL) NEG 11/09 11/09 1548 1503 Chemistry Sodium (137 - 145 mmol/L) Cancelled 135 L Potassium (3.5 - 5.1 mmol/L) Cancelled 4.8 Chloride (98 - 107 mmol/L) Cancelled 100 Carbon Dioxide (22 - 30 mmol/L) Cancelled 28 Anion Gap (5 - 16) Cancelled 7 BUN (9 - 20 mg/dL) Cancelled 13 Creatinine (0.7 - 1.2 mg/dL) Cancelled 0.5 L Estimated GFR (>60 ml/min) > 60 BUN/Creatinine Ratio (7 - 25 %) Cancelled 26.0 H Glucose (65 - 99 mg/dL) Cancelled 108 H Calcium (8.4 - 10.2 mg/dL) Cancelled 8.8 Total Bilirubin (0.2 - 1.3 mg/dL) Cancelled 0.6 AST (17 - 59 U/L) Cancelled 104 H ALT (21 - 72 U/L) Cancelled 29 Alkaline Phosphatase (< 127 U/L) Cancelled 584 H Total Protein (6.3 - 8.2 g/dL) Cancelled 5.7 L Albumin (3.5 - 5.0 g/dL) Cancelled 3.3 L Globulin (1.9 - 4.2 gm/dL) Cancelled 2.4 Albumin/Globulin Ratio (1.1 - 2.2 %) Cancelled 1.4 Hematology CBC w Diff MAN DIFF ORDERED WBC (4.8 - 10.8 /CUMM) 7.8 RBC (4.70 - 6.10 /CUMM) 3.15 L Hgb (14.0 - 18.0 G/DL) 8.9 L Hct (42 - 52 %) 26.4 L MCV (80.0 - 94.0 FL) 83.7 MCH (27.0 - 31.0 PG) 28.3 RDW (11.5 - 14.5 %) 18.8 H Plt Count (130 - 400 /CUMM) 182 MPV (7.4 - 10.4 FL) 7.2 L Gran % (42.2 - 75.2 %) 90.8 H Lymphocytes % (20.5 - 51.1 %) 5.2 L Monocytes % (1.7 - 9.3 %) 3.6 Eosinophils % (0 - 5 %) 0.2 Basophils % (0.0 - 2.0 %) 0.2 Absolute Granulocytes (1.4 - 6.5 /CUMM) 7.1 H Segmented Neutrophils (42.2 - 75.2 %) 78 H Band Neutrophils (0.0 - 5.0 %) 8 H Absolute Lymphocytes (1.2 - 3.4 /CUMM) 0.4 L Lymphocytes (20.5 - 51.1 %) 6 L Monocytes (1.7 - 9.3 %) 6 Absolute Monocytes (0.10 - 0.60 /CUMM) 0.3 Absolute Eosinophils (0.0 - 0.7 /CUMM) 0 Basophils (0.0 - 2.0 %) 1 Absolute Basophils (0.0 - 0.2 /CUMM) 0 Metamyelocytes (0.0 - 1.0 %) 1 Nucleated RBCs (0.0 - 0.0 /100WBC) 2 H Platelet Estimate (ADEQUATE) ADEQUATE Hypochromic-Microcytic 1+ Poikilocytosis 2+ Anisocytosis 1+ Ovalocytes Elliptocytes PUBS MCHC (33.0 - 37.0 G/DL) 33.7 Imaging/Other Studies: CXR 11/09/2016: 1. No convincing evidence of pneumonia. 2. Persistent bibasilar streaky opacification may represent atelectasis. 3. Diffuse osseous sclerotic metastatic disease. Assessment/Plan Assessment: Mr. Segura is a 61-year-old male with metastatic prostate cancer on mitoxantrone every 3 weeks now presents with worsening bone pain. Pain is chronic but progressively worsening. He is tentatively scheduled to undergo samarium therapy with radiation oncology for his bone pain. He will need to discuss with radiation oncology regarding therapy schedule. He was also noted to be febrile. Blood culture is pending. Chest x-ray demonstrated possible atelectasis. He should be monitored for possible pneumonia and underlying infections. He received one dose of Unaysn in the ED. For his pain, he is on fentanyl patch and morphine prn. Pain is mostly with movement. He may need a more frequent dosing of breakthrough medications. Dexamethasone may be reasonable for bone pain if tolerated. Recommendations: 1. Continue pain management: fentanyl 75 mcg patch, morphine 4 mg q4 prn 2. Adjust as needed for pain control 3. Consider dexamethasone for bone pain 4. Follow up with radiation on samarium therapy 5. Follow up blood cultures Problem List: 1. Chronic pain syndrome 2. Metastatic malignant neoplasm to prostate 3. Intractable pain Other Findings/Comments: Please call [phone] with any questions or concerns Consult Acknowledgment - Thank you for your consult request.
[2016-11-10 15:00] VITALS: BP 130/62
[2016-11-11 01:22] VITALS: BP 110/62
--- NOTE | 2016-11-11 07:29 | PN- Oncology ---
Subjective Subjective: Complaining of diffuse pain Review of Systems: 12 point review of systems nonspecific, no further fever Objective Vital Signs and I&Os Vital Signs Date Time Temp Pulse Resp B/P Pulse O2 O2 Flow FiO2 Ox Delivery Rate 11/11 0122 98.1 114 20 110/62 94 Room Air 11/10 1500 98.0 125 18 130/62 92 Room Air 11/10 0854 98.4 112 20 122/70 92 Room Air Intake & Output 11/11 0800 11/11 0000 11/10 1600 11/10 0800 11/10 0000 11/09 1600 Intake Total 274 078 9560 720 195 Output Total 300 550 500 600 475 Balance 620 350 500 120 -280 Intake, IV 800 700 700 600 75 Intake, Oral 120 200 300 120 120 Output, Urine 300 550 500 600 475 Patient 156 lb 156 lb Weight Gen.: in NAD ENT: Sclera anicteric Chest: Normal respiratory effort, decreased breath sounds Cor: RRR, no extra sounds Abdomen: Soft, bowel sounds present, no tenderness, no rebound Extremities: Without clubbing, cyanosis, or asymmetric edema Neurology: Alert and oriented 3, no gross deficit Skin: No rashes Current Medications: Current Medications Sig/Yessi Start time Last Medication Dose Route Stop Time Status Admin Calcium 600 MG BID 11/09 2199 AC 11/10 PO 2245 Cholecalciferol 1,000 IU DAILY 11/10 1000 AC 11/10 PO 1001 Dextrose/Sodium 1,000 ML Q10H 11/10 1615 AC 11/11 Chloride IV 0431 Dextrose/Sodium 1,000 ML Q13H 11/09 214 DC 11/09 Chloride IV 11/10 1044 2315 Docusate Sodium 100 MG BID 11/09 2199 AC 11/10 PO 2245 Enoxaparin Sodium 40 MG DAILY 11/10 1000 AC 11/10 SC 1002 Fentanyl Citrate 75 MCG Q72H 11/11 1000 DC TOP Fentanyl Citrate 100 MCG ONCE ONE 11/10 2330 DC 11/11 TOP 11/10 2331 0000 Fentanyl Citrate 75 MCG Q72H 11/10 2145 DC TOP Fentanyl Citrate 100 MCG Q72H 11/10 1000 DC 11/10 TOP 1152 Fluoxetine HCl 20 MG DAILY 11/10 1000 AC 11/10 PO 1001 Lorazepam 0.5 MG Q4 HRS NEEDED PRN 11/095 AC 11/11 PO 11/16 2144 0608 Morphine Sulfate 4 MG Q4 HRS NEEDED PRN 11/09 2145 AC 11/11 IV 0608 Ondansetron HCl 4 MG Q6P PRN 11/09 2145 AC IV Oxycodone HCl 20 MG Q4-PRN PRN 11/10 1000 AC 11/11 PO 0112 Oxycodone HCl 5 MG .STK-MED ONE 11/10 0955 DC PO 11/10 0956 Oxycodone HCl 15 MG Q4 11/09 2130 DC 11/10 PO 0622 Polyethylene Glycol 17 GM DAILY 11/10 1000 AC 11/10 PO 1001 Results Last 24 Hours of Lab Results: Laboratory Tests 11/11 0705 Hematology CBC w Diff Pending WBC Pending RBC Pending Hgb Pending Hct Pending MCV Pending MCH Pending RDW Pending Plt Count Pending MPV Pending PUBS MCHC Pending Assessment/Plan Assessment/Recommendations: 1. Metastatic prostate cancer-characterized by diffuse pain Recommend- Analgesia Samarium as per radiation therapy 2. Fever-cultures negative, resolved
[2016-11-11 07:44] LABS: ABSOLUTE BASOPHIL COUNT 0 /CUMM (0.0-0.2); ABSOLUTE EOSINOPHIL COUNT 0 /CUMM (0.0-0.7); ABSOLUTE GRANULOCYTE CT 6.1 /CUMM (1.4-6.5); ABSOLUTE LYMPH COUNT 0.3 /CUMM (1.2-3.4); ABSOLUTE MONOCYTE COUNT 0.5 /CUMM (0.10-0.60); BASOPHIL % 0.1 % (0.0-2.0); EOSINOPHIL % 0.2 % (0-5); GRANULOCYTE % 89.1 % (42.2-75.2); HEMATOCRIT 21.8 % (42-52); MEAN CORPUSCULAR HGB 28.8 PG (27.0-31.0); MEAN CORPUSCULAR HGB CONC 34.4 G/DL (33.0-37.0); MEAN CORPUSCULAR VOLUME 83.7 FL (80.0-94.0); MEAN PLATELET VOLUME 7.2 FL (7.4-10.4); PLATELET COUNT 155 /CUMM (130-400); RBC DISTRIBUTION WIDTH 19.2 % (11.5-14.5); RED BLOOD CELL CT 2.61 /CUMM (4.70-6.10); WHITE BLOOD CELL COUNT 6.8 /CUMM (4.8-10.8)
[2016-11-11 08:02] VITALS: BP 128/65
--- NOTE | 2016-11-11 08:03 | PN- Housestaff ---
ALFREDA ABRAHAM,KASIA 11/11/16 0800: Subjective Follow-up For: Fever/intractable pain secondary to metastatic prostate cancer Complaints: intractable pain all over his body while moving Subjective: He didn't have any fever over night. He didn't notice any change in pain scale after increasing the dose. He c/o intractable 1000/1000 pain while moving/ambulating. Review of Systems Constitutional: Reports: malaise, weakness. Denies: chills, fever. EENTM: Reports: no symptoms. Cardiovascular: Denies: chest pain, palpitations, peripheral edema, syncope. Respiratory: Denies: cough, short of breath, sputum production, wheezing. Gastrointestinal: Denies: abdominal pain, diarrhea, nausea, vomiting. Genitourinary: Reports: no symptoms. Musculoskeletal: Reports: see HPI, back pain, joint pain, muscle pain. Skin: Reports: no symptoms. Neurological/Psychological: Reports: headache, weakness. Hematologic/Endocrine: Reports: see HPI. Immunologic/Allergic: Reports: see HPI. Objective Last 24 Hrs of Vital Signs/I&O Vital Signs Date Time Temp Pulse Resp B/P Pulse O2 O2 Flow FiO2 Ox Delivery Rate 11/11 0802 98.1 113 20 128/65 93 Room Air 11/11 0122 98.1 114 20 110/62 94 Room Air 11/10 1500 98.0 125 18 130/62 92 Room Air Intake & Output 11/11 1600 11/11 0800 11/11 0000 Intake Total 1280 920 900 Output Total 400 300 550 Balance 880 620 350 Intake, IV 800 800 700 Intake, Oral 480 120 200 Output, Urine 400 300 550 Patient 156 lb Weight Physical Exam General Appearance: Alert, Oriented X3, Cooperative, Moderate Distress Skin: No Rashes, No Breakdown, Lt. port-a-cath, intact, no tenderness around HEENT: Atraumatic, PERRLA, EOMI, Mucous Membr. moist/pink Neck: Supple, No JVD, No thryomegaly, No LAD Lymphatic: Cervical nl Cardiovascular: Regular Rate, Normal S1, Normal S2, No Murmurs Lungs: Clear to Auscultation, Normal Air Movement Abdomen: Normal Bowel Sounds, Soft, No Tenderness Neurological: Normal Speech, Normal Tone, Cranial Nerves 3-12 NL, decreased strength 3/5 bilaterally due to pain Extremities: No Edema, Normal Pulses, tenderness with gentle touching with all over body Vascular: Normal Pulses, Pulses Symmetrical Current Medications: Current Medications Sig/Yessi Start time Last Medication Dose Route Stop Time Status Admin Calcium 600 MG BID 11/09 220 AC 11/11 PO 1020 Cholecalciferol 1,000 IU DAILY 11/10 1000 AC 11/11 PO 1020 Dextrose/Sodium 1,000 ML Q10H 11/10 1615 AC 11/11 Chloride IV 1429 Docusate Sodium 100 MG BID 11/09 2200 AC 11/11 PO 1020 Enoxaparin Sodium 40 MG DAILY 11/10 1000 AC 11/11 SC 1020 Fentanyl Citrate 100 MCG ONCE ONE 11/10 2330 DC 11/11 TOP 11/10 2331 0000 Fentanyl Citrate 75 MCG Q72H 11/10 214 DC TOP Fentanyl Citrate 100 MCG Q72H 11/10 1000 DC 11/10 TOP 1152 Fluoxetine HCl 20 MG DAILY 11/10 1000 AC 11/11 PO 1020 Lorazepam 0.5 MG Q4 HRS NEEDED PRN 11/09 214 AC 11/11 PO 11/16 214 0608 Morphine Sulfate 4 MG Q4 HRS NEEDED PRN 11/09 214 AC 11/11 IV 1019 Ondansetron HCl 4 MG Q6P PRN 11/09 2144 AC IV Oxycodone HCl 20 MG Q4-PRN PRN 11/10 1000 AC 11/11 PO 1252 Polyethylene Glycol 17 GM DAILY 11/10 1000 AC 11/11 PO 1021 Last 24 Hrs of Lab/Daren Results Last 24 Hrs of Labs/Mics: Laboratory Tests 11/11/16 0705: CBC w Diff MAN DIFF ORDERED, RBC 2.61 L, MCV 83.7, MCH 28.8, RDW 19.2 H, MPV 7.2 L, Gran % 89.1 H, Lymphocytes % 3.8 L, Monocytes % 6.8, Eosinophils % 0.2 , Basophils % 0.1, Absolute Granulocytes 6.1, Segmented Neutrophils 84 H, Band Neutrophils 5, Absolute Lymphocytes 0.3 L, Lymphocytes 1 L, Monocytes 9, Absolute Monocytes 0.5, Absolute Eosinophils 0, Absolute Basophils 0, Metamyelocytes 1, Platelet Estimate ADEQUATE, Polychromasia 1+, Anisocytosis 1+, Ovalocytes FEW, PUBS MCHC 34.4 Lines/Diet/Fluids Lines: peripheral lines, Lt. port-a-cath Assessment/Plan Assessment: 61 yo male with stage 4 hormone refractory prostate cancer with bone metastasis s/p radiotherapy currently on chemotherapy (mitoxantrene), chronic pain on opiates presented with severe diffuse bone pain especially over the upper back, anterior chest, bilateral upper extremities and right leg with inability to ambulate. Any movement causes him pain. In Aug 2016, neurology was consulted with lumgar spine MRI; patient was advised to restart dexamethasone which he refused. Last chemotherapy was on Oct 17. He gets chemo every 3 weeks. He was due for chemo last week, but his WBC count was low so he was given Filgrastim ( Zarxio). He received 2 units of PRBC on the following Thursday. He is planning to undergo samarium therapy for his symptomatic bone disease. He is seeing Dr. Martinez ([facility]) to discuss and plan the therapy on 11/11. He is scheduled to have the procedure on 11/14. 1. Intractable pain with metastatic prostate cancer: Oncology consult was appreciated. As his pain symptoms were chronic all over his body without specific focus, will increase pain medication; fentanyl patch 100 mcg Q3 days, oxycodone 20 mg Q4 hourly, IV morphine 4 mg Q4 PRN for pain. Continue bowel regime while on opiates. IV dexamethaxone was deferred as pt had fever previously. MRI thoracic/lumbar spines didn't show much change from previous imagings. Pt is scheduled to follow Dr. Martinez/[facility] for samarium therapy for symptomatic bone disease. 2. SIRS (fever, tachycardia) with no clear source of infection: blood/urine cultures remain negative. Will monitor off antibiotics for now. 3. Normocytic chronic anemia: s/p 2PRBC at [facility]. No active signs of bleeding. Today Hb/Hct were decreased from 8.9/26.4 to 7.5/21.8 with IV fluid. Will get 1 prbc transfusion today. Follow up CBC in am. 4. Depression/ anxiety: continue Fluoxetine and ativan 0.5 mg PRN. pastoral care. 5. Malnutrition with metastatic prostate cancer : pt has decreased oral intake. albumin 3.3. Gentle hydration D5 1/2 NS. oral intake 10%-10%-0% yesterday. monitor oral intake if he could go back home. DVT ppx Lovenox. DNR/I. Problem List: 1. Prostate cancer metastatic to bone 2. Intractable pain Pain Ratin Pain Location: All over body Pain Goal: Pain 7 or less Pain Plan: fentanyl patch, po oxycodone, IV morphine Tomorrow's Labs & Rationales: CBC s/p transfusion DVT/Prophylaxis: pharmacological Consulting Request: Consulting Specialty: Hematology/Oncology Discharge Plan Discharge Disposition: home Stable for Discharge? No Anticipated Discharge (Day): tomorrow If Discharged Today/In 24 Hrs: enter [facility] discharge ord, W-10/discharge paper done WILFRED MILLS MD 11/11/16 1406: Attending MD Review Statement Attending Statement Attending MD Statement: examined this patient, discuss w/resident/PA/[employer] DISPATCHER, agreed w/resident/PA/[employer] DISPATCHER, discussed with family, reviewed EMR data (avail), discussed with nursing, amended to note Attending Assessment/Plan: The patient was seen and discussed with house staff, , and Rad Onc. Eating better this morning. Pain improved. Will transition to PO pain meds. No fever/ chills, cultures neg thus far. H/H decrease most c/w hydration. Will transfuse 1 unit PRBC and hope to discharge tomorrow if stable with plan for [id number]-153 Rx at [place] on 11/14.
--- NOTE | 2016-11-11 11:21 | MRI REPORT ---
EXAMINATION: MR THORACIC SPINE WITHOUT AND WITH CONTRAST MR LUMBAR SPINE WITHOUT AND WITH CONTRAST CLINICAL INFORMATION: Prostate carcinoma with bone metastases. Assess for compression fracture. COMPARISON: MRI lumbar spine 09/05/2016 and MRI thoracic spine 08/21/2016. TECHNIQUE: MRI of the thoracic and lumbar spine was obtained using routine sequences without and with contrast. Intravenous contrast: Gadavist 7 mL. Images are degraded by patient motion artifact due to pain, and the patient was unable to tolerate repeat acquisitions. FINDINGS: MR THORACIC SPINE: Vertebral Bodies and Paraspinal Structures: There is a stable mild grade 1 retrolisthesis of T12 on L1. Alignment of the vertebrae is otherwise anatomic. There is heterogenous, predominantly low signal on the T1 and T2 sequences scattered throughout the vertebral bodies and posterior elements, including the ribs. There is heterogenous enhancement. Vertebral body heights are maintained and there are no compression fractures. There is multilevel narrowing of intervertebral disc height in the thoracic spine at multiple levels, with degenerative endplate signal and contour changes. There has been interval increase in the expansile lesions in the ribs at multiple levels particularly on the left at the levels of T3, T4, T7, T8, T9 and T12 there has also been slight interval increase in expansion of the right T4 rib proximally. There is expansion of the left pedicle of T4 with mild distortion of the ventral spinal cord on the left. There is also expansion of the left pedicle of T8 with epidural fullness. There is no significant central canal stenosis. There is paravertebral soft tissue fullness with enhancement at multiple levels most prominently seen at T3, T4 and T10. There is multilevel epidural enhancement at T1 through T3 and T8. The conus is at the level of T12. Spinal cord signal is difficult to evaluate due to patient motion artifact, but appears normal. There are small bilateral pleural effusions, which have developed since the prior study. MR LUMBAR SPINE: Vertebral Bodies and Paraspinal Structures: The study redemonstrates the heterogenous predominantly low signal on the T1 and T2 sequences throughout the lumbar spine, sacrum and visualized iliac bones with heterogenous enhancement. There are no new compression fractures. There is narrowing of intervertebral disc height at multiple levels in the upper lumbar spine. There are mild retrolistheses of T12 on L1 and L1 on L2. There is a mild anterolisthesis of L3-L4. There is mild presacral edema, similar compared to the prior study. The coccyx is not fully included on the available images. Expansion of the left 12th rib posteromedially is increased. An area of increased T2 signal in the inferior right lobe of the liver may be consistent with artifact from the aorta although a focal hepatic lesion cannot be excluded. There is no retroperitoneal lymphadenopathy. The visualized pelvic structures are unremarkable. CONUS MEDULLARIS AND CAUDA EQUINA: Normal, terminating at the level of T12. The cauda equina nerve roots and filum terminale appear normal. There is no significant compression of the thecal sac. SPINAL LEVELS: There is multilevel facet arthropathy which is most severe at L3-L4 and there is moderate central stenosis at this level, similar compared to prior imaging. There is no significant foraminal narrowing. There is no significant epidural mass or enhancement. IMPRESSION: THORACIC SPINE: 1. There are no new compression fractures in the thoracic spine. 2. There has been interval increase in the expansion of multiple ribs and vertebral bodies as described above. There are small bilateral pleural effusions. 3. There is mild distortion of the ventral spinal cord on the left at T4, but there is no significant central stenosis. LUMBAR SPINE: 1. Overall, there has been no significant interval change in the heterogenous signal in the osseous structures in the lumbar spine, sacrum and iliac bones. There are no new compression fractures in the lumbar spine. 2. There are mild degenerative changes, most severe at L3-L4. 3. An area of increased T2 signal in the right liver may be artifactual although a focal hepatic lesion cannot be excluded. This could be further evaluated with ultrasound or CT scan of the abdomen.
[2016-11-11] MEDS ORDERED: OXYCODONE HCL10 M2 PO (13:55)
[2016-11-11] MEDS ORDERED: FENTANYL1 EAC5 TOP (13:56)
[2016-11-11 16:28] VITALS: BP 122/72
[2016-11-11 23:43] VITALS: BP 118/70
--- NOTE | 2016-11-12 07:12 | PN- Housestaff ---
ALFREDA ABRAHAM,ROSAMARIACarolinaISSAC 11/12/16 0711: Subjective Follow-up For: Intractable pain secondary to metastatic prostate cancer with bone mets Complaints: pain scale (0-10) Subjective: Pt was drowy this morning after getting IV morphine 4mg around 4am. He wanted to talk later while he's more awake. He feels weak, not sure about going home today. Review of Systems Constitutional: Reports: malaise, weakness. Denies: chills, fever. EENTM: Reports: no symptoms. Cardiovascular: Denies: chest pain, orthopena, palpitations, peripheral edema. Respiratory: Denies: cough, short of breath, sputum production, wheezing. Gastrointestinal: Reports: no symptoms. Genitourinary: Reports: no symptoms. Musculoskeletal: Reports: see HPI, back pain, joint pain, muscle pain. Skin: Reports: no symptoms. Neurological/Psychological: Reports: confusion, unable to move lower ext, weakness (generalized weakness). Hematologic/Endocrine: Reports: see HPI. Immunologic/Allergic: Reports: see HPI. Objective Last 24 Hrs of Vital Signs/I&O Vital Signs Date Time Temp Pulse Resp B/P Pulse O2 O2 Flow FiO2 Ox Delivery Rate 11/11 2343 98.3 109 20 118/70 93 Room Air 11/11 1628 98.0 110 18 122/72 95 Room Air 11/11 0802 98.1 113 20 128/65 93 Room Air Intake & Output 11/12 0800 11/12 0000 11/11 1600 Intake Total 1040 1375 1280 Output Total 750 400 400 Balance 290 975 880 Intake, Blood 350 Product Intake, IV 800 525 800 Intake, Oral 240 500 480 Number 1 Bowel Movements Output, Urine 750 400 400 Patient 156 lb Weight Physical Exam General Appearance: Alert, Oriented X3, Cooperative, No Acute Distress Skin: No Rashes, No Breakdown, No Significant Lesion, Rt. port-a-cath site clean HEENT: Atraumatic, PERRLA, EOMI, Mucous Membr. moist/pink Neck: Supple, No JVD, No LAD Lymphatic: Cervical nl Cardiovascular: Regular Rate, Normal S1, Normal S2, No Murmurs Lungs: Clear to Auscultation, Normal Air Movement Abdomen: Normal Bowel Sounds, Soft, No Tenderness Neurological: decrease strength 3/5 LE, 4/5 UE due to pain Extremities: No Edema, Normal Pulses Vascular: Normal Pulses, Pulses Symmetrical Current Medications: Current Medications Sig/Yessi Start time Last Medication Dose Route Stop Time Status Admin Calcium 600 MG BID 11/09 2199 AC 11/11 PO 2151 Celecoxib 100 MG BID 11/12 1000 AC PO Cholecalciferol 1,000 IU DAILY 11/10 1000 AC 11/11 PO 1020 Dextrose/Sodium 1,000 ML Q10H 11/10 1615 AC 11/12 Chloride IV 0823 Docusate Sodium 100 MG BID 11/09 2200 AC 11/11 PO 1020 Enoxaparin Sodium 40 MG DAILY 11/10 1000 AC 11/11 SC 1020 Fentanyl Citrate 100 MCG Q72H 11/14 0000 UNVr TOP Fluoxetine HCl 20 MG DAILY 11/10 1000 AC 11/11 PO 1020 Lorazepam 0.5 MG Q4 HRS NEEDED PRN 11/09 214 AC 11/12 PO 11/16 214 0521 Morphine Sulfate 4 MG Q4 HRS NEEDED PRN 11/09 2145 AC 11/12 IV 0351 Ondansetron HCl 4 MG Q6P PRN 11/09 214 AC IV Oxycodone HCl 20 MG Q3P PRN 11/12 1100 UNVr PO Oxycodone HCl 20 MG Q4-PRN PRN 11/10 1000 DC 11/12 PO 0822 Polyethylene Glycol 17 GM DAILY 11/10 1000 AC 11/11 PO 1021 Last 24 Hrs of Lab/Daren Results Last 24 Hrs of Labs/Mics: Laboratory Tests 11/12/16 0630: CBC w Diff NO MAN DIFF REQ, RBC 2.86 L, MCV 85.8, MCH 29.1, RDW 17.8 H, MPV 7.4, Gran % 90.0 H, Lymphocytes % 3.3 L, Monocytes % 6.3, Eosinophils % 0.2, Basophils % 0.2, Absolute Granulocytes 6.6 H, Absolute Lymphocytes 0.2 L, Absolute Monocytes 0.5, Absolute Eosinophils 0, Absolute Basophils 0, PUBS MCHC 34.0 Lines/Diet/Fluids Lines: peripheral lines, Rt. port-a-cath Assessment/Plan Assessment: 61 yo male with stage 4 hormone refractory prostate cancer with bone metastasis s/p radiotherapy currently on chemotherapy (mitoxantrene), chronic pain on opiates presented with severe diffuse bone pain especially over the upper back, anterior chest, bilateral upper extremities and right leg with inability to ambulate. Any movement causes him pain. In Aug 2016, neurology was consulted with lumgar spine MRI; patient was advised to restart dexamethasone which he refused. Last chemotherapy was on Oct 17. He gets chemo every 3 weeks. He was due for chemo last week, but his WBC count was low so he was given Filgrastim ( Zarxio). He received 2 units of PRBC on the following Thursday. He is planning to undergo samarium therapy for his symptomatic bone disease. He is seeing Dr. Martinez ([facility]) on 11/14. 1. Intractable pain with metastatic prostate cancer: Oncology consult was appreciated. As his pain symptoms were chronic all over his body without specific focus, will increase pain medication; fentanyl patch 100 mcg Q3 days, oxycodone 20 mg Q3 hourly, IV morphine 4 mg Q4 PRN for pain. Continue bowel regime while on opiates. IV dexamethaxone was deferred as pt had fever previously. MRI thoracic/lumbar spines didn't show much change from previous imagings. Pt is scheduled to follow Dr. Martinez/[facility] for samarium therapy for symptomatic bone disease. 2. SIRS (fever, tachycardia) with no clear source of infection: blood/urine cultures remain negative. Will monitor off antibiotics for now. 3. chronic normocyti canemia: s/p 2PRBC at [facility]. No active signs of bleeding. Today Hb/Hct were decreased from 8.9/26.4 to 7.5/21.8 with IV fluid. s/p 1 prbc transfusion yesterday. WBC 10.8, Hb/Hct 8.3/24.5 stable now. 4. Depression/ anxiety: continue Fluoxetine and ativan 0.5 mg PRN. pastoral care. 5. Malnutrition with metastatic prostate cancer : Pt continued on gentle hydration D5 1/2 NS. oral intake increased to 50%-75%-75% yesterday. Keep monitor oral intake if he could go back home. DVT ppx Lovenox. DNR/I. Problem List: 1. Prostate cancer metastatic to bone 2. Intractable pain Pain Ratin Pain Location: All over body Pain Goal: Pain 7 or less Pain Plan: fentanyl, morphine, oxycodone Tomorrow's Labs & Rationales: NA DVT/Prophylaxis: mechanical Consulting Request: Consulting Specialty: Hematology/Oncology Discharge Plan Discharge Disposition: home Stable for Discharge? No Anticipated Discharge (Day): tomorrow WILFRED MILLS MD 11/12/16 1332: Attending MD Review Statement Attending Statement Attending MD Statement: examined this patient, discuss w/resident/PA/TANK FILLER, agreed w/resident/PA/TANK FILLER, discussed with family, reviewed EMR data (avail), discussed with nursing, discussed with case mgmt, amended to note Attending Assessment/Plan: The patient was seen and discussed with house staff. Agree with the plan of care as outlined. Considering rehab when ready for discharge and will check with [facility] if [id number] treatment could be done from there.
--- NOTE | 2016-11-12 07:24 | PN- Oncology ---
Subjective Subjective: Complaining of persistent severe diffuse pain, completely new right knee discomfort Review of Systems: 12 point review of systems unchanged Objective Vital Signs and I&Os Vital Signs Date Time Temp Pulse Resp B/P Pulse O2 O2 Flow FiO2 Ox Delivery Rate 11/11 2343 98.3 109 20 118/70 93 Room Air 11/11 1628 98.0 110 18 122/72 95 Room Air 11/11 0802 98.1 113 20 128/65 93 Room Air Intake & Output 11/12 0800 11/12 0000 11/11 1600 11/11 0800 11/11 0000 11/10 1600 Intake Total 1040 1375 1280 940 811 8157 Output Total 750 400 400 300 550 500 Balance 290 975 880 620 350 500 Intake, Blood 350 Product Intake, IV 800 525 800 800 700 700 Intake, Oral 240 500 480 120 200 300 Number 1 Bowel Movements Output, Urine 750 400 400 300 550 500 Patient 156 lb Weight Gen.: in NAD ENT: Sclera anicteric Chest: Normal respiratory effort, decreased breath sounds Cor: RRR, no extra sounds Abdomen: Soft, bowel sounds present, no tenderness, no rebound Extremities: Without clubbing, cyanosis, or edema,? Right knee swollen Neurology: Alert and oriented 3, Current Medications: Current Medications Sig/Yessi Start time Last Medication Dose Route Stop Time Status Admin Calcium 600 MG BID 11/09 2199 AC 11/11 PO 215 Cholecalciferol 1,000 IU DAILY 11/10 1000 AC 11/11 PO 1020 Dextrose/Sodium 1,000 ML Q10H 11/10 1615 AC 11/11 Chloride IV 1429 Docusate Sodium 100 MG BID 11/09 2199 AC 11/11 PO 1020 Enoxaparin Sodium 40 MG DAILY 11/10 1000 AC 11/11 SC 1020 Fluoxetine HCl 20 MG DAILY 11/10 1000 AC 11/11 PO 1020 Lorazepam 0.5 MG Q4 HRS NEEDED PRN 11/09 2144 AC 11/12 PO 11/16 2143 0521 Morphine Sulfate 4 MG Q4 HRS NEEDED PRN 11/09 2144 AC 11/12 IV 0351 Ondansetron HCl 4 MG Q6P PRN 11/09 2144 AC IV Oxycodone HCl 20 MG Q4-PRN PRN 11/10 1000 AC 11/11 PO 1843 Polyethylene Glycol 17 GM DAILY 11/10 1000 AC 11/11 PO 1021 Results Last 24 Hours of Lab Results: Laboratory Tests 11/12 0630 Hematology CBC w Diff Pending WBC Pending RBC Pending Hgb Pending Hct Pending MCV Pending MCH Pending RDW Pending Plt Count Pending MPV Pending PUBS MCHC Pending Recent Imaging Studies: MRI-no dramatic new changes Assessment/Plan Assessment/Recommendations: Advanced prostate cancer- Hopefully patient can be discharged and receive samarium at [facility] on Thursday Analgesia has been increased Transfuse RBCs to achieve hematocrit>25 Overall prognosis- very poor
[2016-11-12 08:00] VITALS: BP 108/60
[2016-11-12 08:09] LABS: ABSOLUTE BASOPHIL COUNT 0 /CUMM (0.0-0.2); ABSOLUTE EOSINOPHIL COUNT 0 /CUMM (0.0-0.7); ABSOLUTE GRANULOCYTE CT 6.6 /CUMM (1.4-6.5); ABSOLUTE LYMPH COUNT 0.2 /CUMM (1.2-3.4); ABSOLUTE MONOCYTE COUNT 0.5 /CUMM (0.10-0.60); BASOPHIL % 0.2 % (0.0-2.0); EOSINOPHIL % 0.2 % (0-5); HEMATOCRIT 24.5 % (42-52); MEAN CORPUSCULAR HGB 29.1 PG (27.0-31.0); MEAN CORPUSCULAR VOLUME 85.8 FL (80.0-94.0); MEAN PLATELET VOLUME 7.4 FL (7.4-10.4); RBC DISTRIBUTION WIDTH 17.8 % (11.5-14.5); RED BLOOD CELL CT 2.86 /CUMM (4.70-6.10)
[2016-11-12 09:02] LABS: PLATELET COUNT 148 /CUMM (130-400)
[2016-11-12 09:03] LABS: WHITE BLOOD CELL COUNT 10.8 /CUMM (4.8-10.8)
[2016-11-12 17:00] VITALS: BP 112/68
--- NOTE | 2016-11-12 17:52 | Discharge Summary ---
Visit Information Visit Dates Admission Date: 11/09/16 Discharge Date: 11/13/16 Hospital Course Course Attending Physician: WILFRED MILLS MD Primary Care Physician: SARAH ABRAHAM,PATRICE Lopez Other Care Providers: Dr. Swenson: Radiation Oncology ([facility]) Dr. Dao: Radiation Oncology([facility]) Dr. Augilar: hem & onc Consulting Request: Consulting Specialty: Hematology/Oncology Hospital Course: 61 yo male with stage 4 hormone refractory prostate cancer with bone metastasis s/p radiotherapy currently on chemotherapy (mitoxantrene), chronic pain on opiates presented with severe diffuse bone pain especially over the upper back, anterior chest, bilateral upper extremities and right leg with inability to ambulate. Any movement causes him pain. In Aug 2016, neurology was consulted with lumgar spine MRI; patient was advised to restart dexamethasone which he refused. Last chemotherapy was on Oct 17. He gets chemo every 3 weeks. He was due for chemo last week, but his WBC count was low so he was given Filgrastim ( Zarxio). He received 2 units of PRBC on the following Thursday. He is planning to undergo samarium therapy for his symptomatic bone disease. Initial V/S: 97.9F OR 111 RR 22 BP 121/83 97% on RA (T max: 101.0F), On exam General Appearance: Cachectic, Alert, Oriented X3, Cooperative, mild distress in pain, dry mucosa, Skin No Rashes, Port-A-Cath on right upper chest Neck: Supple, Cardiovascular: tachycardia, normal S1/S2, Lungs: Clear to Auscultation, Abdomen : Normal Bowel Sounds, Soft, No Tenderness, Extremities: No Edema, Normal Pulses Labs: Hb/Hct 8.9/26.4, WBC 7.8, bands 8, AST 104, ALT 29, Alk phos 584, lactic acid normal, albumin 3.3, UA unremarkable, CXR: 1. No convincing evidence of pneumonia. 2. Persistent bibasilar streaky opacification may represent atelectasis. 3. Diffuse osseous sclerotic metastatic disease. He was admitted on general medicine floor for following problem lists; 1. Intractable pain with metastatic prostate cancer: Oncology consult was appreciated. As his pain symptoms were chronic all over his body without specific focus, pain medication was increased from home dose; fentanyl patch 100 mcg Q3 days, oxycodone 20 mg Q3 hourly, IV morphine 4 mg Q4 PRN. Patient continued bowel regime while on opiates. IV dexamethaxone was deferred as patient had fever previously. MRI thoracic/lumbar spines didn't show much change from previous imagings without new compression fractures. Patient will be discharged to home today and follow Dr. Dao/[facility] for samarium therapy tomorrow. 2. SIRS (fever, tachycardia) with no clear source of infection: blood/urine cultures remain negative. No active signs of infection. Patient was monitored off antibiotics. 3. chronic normocytic canemia: s/p 2PRBC at [facility]. No active signs of bleeding. Hb/Hct were decreased from 8.9/26.4 to 7.5/21.8 with IV fluid on 11/11. s/p 1 prbc transfusion on 11/11. After transfusion, Hb remained stable above 8, no active signs of bleeding. 4. Depression/ anxiety: He continued po Fluoxetine and po ativan 0.5 mg PRN. Pastoral care was consulted. 5. Malnutrition with metastatic prostate cancer: Oral intake has been decreasing. Nutritional consult was obatined, and he was given IV fluid / ensure. Patient will be discharged with home nusring services. DVT ppx Lovenox. DNR/I. Allergies: Coded Allergies: clams (Intermediate, UNKNOWN REACTION TO RAW CLAMS 09/04/16) Significant Procedures: Blood transfusion 1 PRBC 11/11 MRI Thoracic/lumbar spine 11/11/16 IMPRESSION: THORACIC SPINE: 1. There are no new compression fractures in the thoracic spine. 2. There has been interval increase in the expansion of multiple ribs and vertebral bodies as described above. There are small bilateral pleural effusions. 3. There is mild distortion of the ventral spinal cord on the left at T4, but there is no significant central stenosis. LUMBAR SPINE: 1. Overall, there has been no significant interval change in the heterogenous signal in the osseous structures in the lumbar spine, sacrum and iliac bones. There are no new compression fractures in the lumbar spine. 2. There are mild degenerative changes, most severe at L3-L4. 3. An area of increased T2 signal in the right liver may be artifactual although a focal hepatic lesion cannot be excluded. This could be further evaluated with ultrasound or CT scan of the abdomen. Rt. knee x-ray 11/13/16 1. Moderate size suprapatellar knee joint effusion. 2. Moderate tricompartmental osteoarthritic changes in the right knee joint. 3. Abnormal sclerotic density in the mid femoral shaft, partially included on this exam, consistent with metastatic prostate cancer. Appearance is unchanged from bone scan from 11/02/2015. No impending fracture is seen. Disposition Summary Disposition Principal Diagnosis: Intractable pain with metastatic prostate cancer Additional Diagnosis: Chronic normocytic anemia s/p 1PRBC transfusion Depression Anxiety Malnutrition Discharge Disposition: home health services Discharge Instructions General Discharge Information Code Status: Do Not Resucitate/Intubat Patient's Diet: Regular diet Patient's Activity: Out of bed to chair as tolerated Walk with assistance Avoid fall risk Follow-Up Instructions/Appts: Please follow up with Dr. Swenson/[facility] for samarium therapy on 11/14 Please follow up with Dr. Aguilar regarding prostate cancer Please follow up with Dr. Edmonds for pain management Medications at Discharge Discharge Medications: Stop taking the following medications: Oxycodone HCl (Oxycodone HCl) 15 MG TABLET ORAL Every 4 hours Qty = 120 Fentanyl Citrate (Duragesic) 75 MCG/HOUR PATCH.TD72 On the skin Q72H Qty = 30 Continue taking these medications: Ondansetron (Zofran Odt) 4 MG TAB.RAPDIS 1 Tablet SUBLINGUAL THREE TIMES DAILY as needed for NAUSEA/VOMITING Qty = 30 Comments: not given Fluoxetine HCl (Fluoxetine HCl) 20 MG CAPSULE 1 Capsule ORAL DAILY Qty = 90 Comments: last given 11/13/16 @ 1000 Calcium Carbonate/Vitamin D3 (Caltrate 600 + D Tablet) 1 EACH TABLET 1 Tablet ORAL TWICE DAILY Comments: last given 11/13/16 @ 1000 Cholecalciferol (Vitamin D3) 1,000 UNIT TABLET 2 Tablet ORAL DAILY Comments: last given 11/13/16 @ 1000 Docusate Sodium (Colace) 100 MG CAPSULE 1 Capsule ORAL TWICE DAILY Comments: last given 11/13/16 @ 1000 Polyethylene Glycol 3350 (Miralax) 17 GM POWD.PACK 1 Packet ORAL DAILY Instructions: dissolve in water Comments: last given 11/13/16 @ 1000 Lorazepam (Lorazepam) 0.5 MG TABLET 1 Tablet ORAL EVERY 4 HOURS NEEDED Qty = 75 Comments: last given 11/13/16 @ 1430 Start taking the following new medications: Celecoxib (Celebrex) 100 MG CAPSULE 100 Milligram ORAL TWICE DAILY Qty = 30 No Refills Oxycodone HCl (Oxycodone HCl) 10 MG TABLET 20 Milligram ORAL EVERY 3 HOURS NEEDED as needed for PAIN SCALE 4-6 ( MODERATE) Qty = 30 No Refills Comments: last given 11/13/16 @ 1830 Fentanyl (Fentanyl) 100 MCG/HOUR PATCH.TD72 1 Patch On the skin Every 3 days Qty = 4 No Refills Comments: new patch is due 11/14/16 @ 0000 Copies To: MARGIE ABRAHAM,PJ Estes; WILFRED MILLS MD; JAMES ABRAHAM,JEEVAN Marte; CELENA DAO MD; HELENA ABRAHAM,HENRY Attending MD Review Statement Documenting Attending: WILFRED MILLS MD Other Findings: The patient was seen and agree with the plan of care as outlined.
--- NOTE | 2016-11-12 22:44 | NUR ---
AT BEGINNING OF SHIFT, PATIENT COMPLAINING OF RIGHT KNEE PAIN. WANTED TO NOTIFY THE SPEARER THAT KNEE PAIN IS WAS CAUSED WHEN HE WENT DOWN FOR THE MRI. PATIENT VERY ANGRY AT TIMES. PAIN MEDICATION GIVEN. DR. MILLS ALREADY SPOKE TO THE EARLIER IN THE DAY PER DAY NURSECARYN. RIGHT KNEE MORE SWOLLEN THAN LEFT. MD AWARE. WILL CONTINUE TO MONITOR PATIENT AND GIVE PAIN MEDICATION NEEDED.
[2016-11-12 23:53] VITALS: BP 106/62
--- NOTE | 2016-11-13 06:49 | PN- Oncology ---
Subjective Subjective: Resting comfortably, no new specific complaints Review of Systems: 12 point review of systems otherwise unchanged Objective Vital Signs and I&Os Vital Signs Date Time Temp Pulse Resp B/P Pulse O2 O2 Flow FiO2 Ox Delivery Rate 11/12 2353 97.9 92 18 106/62 95 Room Air 11/12 1700 98.7 102 20 112/68 96 Room Air 11/12 0800 96 Room Air 11/12 0800 97.8 104 18 108/60 96 Room Air Intake & Output 11/13 0800 11/13 0000 11/12 1600 11/12 0800 11/12 0000 11/11 1600 Intake Total 950 6215 869 1810 1375 1280 Output Total 600 1150 800 750 400 400 Balance 350 200 -200 290 975 880 Intake, Blood 350 Product Intake, IV 800 1000 800 525 800 Intake, Oral 150 350 600 240 500 480 Number 1 Bowel Movements Output, Urine 600 1150 800 750 400 400 Patient 156 lb Weight Gen.: in NAD ENT: Sclera anicteric Chest: Normal respiratory effort, decreased breath sounds Cor: RRR, no extra sounds Abdomen: Soft, bowel sounds present, no tenderness, no rebound Extremities: Without clubbing, cyanosis, or asymmetric edema Neurology: Alert and oriented 3, no gross deficit Current Medications: Current Medications Sig/Yessi Start time Last Medication Dose Route Stop Time Status Admin Calcium 600 MG BID 11/09 2199 AC 11/12 PO 221 Celecoxib 100 MG BID 11/12 1000 AC 11/12 PO 220 Cholecalciferol 1,000 IU DAILY 11/10 1000 AC 11/12 PO 1144 Dextrose/Sodium 1,000 ML Q10H 11/10 1615 AC 11/13 Chloride IV 0254 Docusate Sodium 100 MG BID 11/09 2199 AC 11/12 PO 221 Enoxaparin Sodium 40 MG DAILY 11/10 1000 AC 11/12 SC 1143 Fentanyl Citrate 100 MCG Q72H 11/14 0000 AC TOP Fluoxetine HCl 20 MG DAILY 11/10 1000 AC 11/12 PO 114 Lorazepam 0.5 MG Q4 HRS NEEDED PRN 11/09 2144 AC 11/12 PO 11/16 Morphine Sulfate 4 MG Q4 HRS NEEDED PRN 11/09 214 AC 11/12 IV 0351 Ondansetron HCl 4 MG Q6P PRN 11/09 2144 IV Oxycodone HCl 20 MG Q3P PRN 11/12 1100 AC 11/13 PO 0256 Oxycodone HCl 20 MG Q4-PRN PRN 11/10 1000 DC 11/12 PO 0822 Patient Medication 1 ED .STK-MED ONE 11/12 1336 [place] Teaching ED 11/12 1337 Polyethylene Glycol 17 GM DAILY 11/10 1000 AC 11/12 PO 1143 Results Last 24 Hours of Lab Results: CBC pending Assessment/Plan Assessment/Recommendations: Advanced prostate cancer- Hopefully patient can be discharged and receive samarium at [facility] tomorrow Follow-up my office
--- NOTE | 2016-11-13 07:12 | PN- Housestaff ---
ALFREDA ABRAHAM,KASIA 11/13/16 0711: Subjective Follow-up For: Intractable pain 2/2 metastatic prostate cancer Subjective: He c/o Rt. knee pain and swelling. He has more pain while moving, especially during physical therapy. Oral intake has been increased. Review of Systems Constitutional: Reports: malaise, weakness. Denies: chills, fever. EENTM: Reports: no symptoms. Cardiovascular: Denies: chest pain, palpitations, peripheral edema, syncope. Respiratory: Denies: cough, short of breath, sputum production, wheezing. Gastrointestinal: Denies: abdominal pain, diarrhea, nausea, vomiting. Genitourinary: Reports: no symptoms. Musculoskeletal: Reports: joint pain. Skin: Reports: see HPI. Neurological/Psychological: Reports: anxiety, depressed. Hematologic/Endocrine: Reports: see HPI. Immunologic/Allergic: Reports: see HPI. Objective Last 24 Hrs of Vital Signs/I&O Vital Signs Date Time Temp Pulse Resp B/P Pulse O2 O2 Flow FiO2 Ox Delivery Rate 11/13 0818 97.1 80 18 100/60 95 Room Air 11/13 0757 Room Air 11/12 2353 97.9 92 18 106/62 95 Room Air 11/12 1700 98.7 102 20 112/68 96 Room Air Intake & Output 11/13 1600 11/13 0800 11/13 0000 Intake Total 950 1350 Output Total 1150 1150 Balance -200 200 Intake, IV 800 1000 Intake, Oral 150 350 Output, Urine 1150 1150 Physical Exam General Appearance: Alert, Oriented X3, Cooperative, Mild Distress Skin: No Rashes, No Breakdown, No Significant Lesion, Rt. port-a-cath under dressing HEENT: Atraumatic, PERRLA, EOMI, Mucous Membr. moist/pink Neck: Supple, No JVD, No LAD Lymphatic: Cervical nl Cardiovascular: Regular Rate, Normal S1, Normal S2, No Murmurs Lungs: Clear to Auscultation, Normal Air Movement Abdomen: Normal Bowel Sounds, Soft, No Tenderness Neurological: Normal Speech, generalized weakness due to pain 3/5 Extremities: No Edema, Normal Pulses Vascular: Normal Pulses, Pulses Symmetrical Current Medications: Current Medications Sig/Yessi Start time Last Medication Dose Route Stop Time Status Admin Calcium 600 MG BID 11/09 2200 AC 11/13 PO 1006 Celecoxib 100 MG BID 11/12 1000 AC 11/13 PO 1006 Cholecalciferol 1,000 IU DAILY 11/10 1000 AC 11/13 PO 1005 Dextrose/Sodium 1,000 ML Q10H 11/10 1615 AC 11/13 Chloride IV 0254 Docusate Sodium 100 MG BID 11/09 2200 AC 11/13 PO 1006 Enoxaparin Sodium 40 MG DAILY 11/10 1000 AC 11/13 SC 1005 Fentanyl Citrate 100 MCG Q72H 11/14 0000 AC TOP Fluoxetine HCl 20 MG DAILY 11/10 1000 AC 11/13 PO 1005 Lorazepam 0.5 MG Q4 HRS NEEDED PRN 11/09 2145 AC 11/12 PO 11/16 2143 2212 Morphine Sulfate 4 MG Q4 HRS NEEDED PRN 11/09 2144 AC 11/12 IV 0351 Ondansetron HCl 4 MG Q6P PRN 11/09 2144 AC IV Oxycodone HCl 20 MG Q3P PRN 11/12 1100 AC 11/13 PO 1134 Patient Medication 1 ED .STK-MED ONE 11/12 1336 SD Teaching ED 11/12 1337 Polyethylene Glycol 17 GM DAILY 11/10 1000 AC 11/13 PO 1005 Last 24 Hrs of Lab/Daren Results Last 24 Hrs of Labs/Mics: Laboratory Tests 11/13/16 1000: CBC w Diff NO MAN DIFF REQ, RBC 2.91 L, MCV 84.2, MCH 28.8, RDW 17.9 H, MPV 7.1 L, Gran % 88.2 H, Lymphocytes % 4.3 L, Monocytes % 7.0, Eosinophils % 0.2 , Basophils % 0.3, Absolute Granulocytes 4.4, Absolute Lymphocytes 0.2 L, Absolute Monocytes 0.3, Absolute Eosinophils 0, Absolute Basophils 0, PUBS MCHC 34.2 Lines/Diet/Fluids Lines: peripheral lines Assessment/Plan Assessment: 61 yo male with stage 4 hormone refractory prostate cancer with bone metastasis s/p radiotherapy currently on chemotherapy (mitoxantrene), chronic pain on opiates presented with severe diffuse bone pain especially over the upper back, anterior chest, bilateral upper extremities and right leg with inability to ambulate. Any movement causes him pain. In Aug 2016, neurology was consulted with lumgar spine MRI; patient was advised to restart dexamethasone which he refused. Last chemotherapy was on Oct 17. He gets chemo every 3 weeks. He was due for chemo last week, but his WBC count was low so he was given Filgrastim ( Zarxio). He received 2 units of PRBC on the following Thursday. He is planning to undergo samarium therapy for his symptomatic bone disease. He is seeing Dr. Martinez ([facility]) on 11/14. 1. Intractable pain with metastatic prostate cancer: Oncology consult was appreciated. As his pain symptoms were chronic all over his body without specific focus, will increase pain medication; fentanyl patch 100 mcg Q3 days, oxycodone 20 mg Q3 hourly, IV morphine 4 mg Q4 PRN for pain. Continue bowel regime while on opiates. IV dexamethaxone was deferred as pt had fever previously. MRI thoracic/lumbar spines didn't show much change from previous imagings. Pt will be discharged to home today and follow Dr. Martinez/[facility] for samarium therapy tomorrow. 2. SIRS (fever, tachycardia) with no clear source of infection: blood/urine cultures remain negative. No active signs of infection. WBC 4.9 on 11/13. 3. chronic normocytic canemia: s/p 2PRBC at [facility]. No active signs of bleeding. Today Hb/Hct were decreased from 8.9/26.4 to 7.5/21.8 with IV fluid. s/p 1 prbc transfusion on 11/11. Stable, no active signs of bleeding. 4. Depression/ anxiety: continue Fluoxetine and ativan 0.5 mg PRN. pastoral care. 5. Malnutrition with metastatic prostate cancer : oral intake has been increasing to 100%. Will discharge patient with home nusring services. DVT ppx Lovenox. DNR/I. Problem List: 1. Prostate cancer metastatic to bone Pain Ratin Pain Location: All over body Pain Goal: Pain 7 or less Pain Plan: fentanyl patch oxycodone Tomorrow's Labs & Rationales: DC today DVT/Prophylaxis: pharmacological Consulting Request: Consulting Specialty: Hematology/Oncology Discharge Plan Stable for Discharge? Yes WILFRED MILLS MD 11/13/16 1613: Attending Review Statement Attending Statement Attending Statement: examined this patient, discuss w/resident/PA/NEON INSTALLER, agreed w/resident/PA/NEON INSTALLER, discussed with family, reviewed EMR data (avail), discussed with nursing, discussed with case mgmt, reviewed images, amended to note Attending Assessment/Plan: The patient was seen and discussed with house staff, case management and patient 's . Spoke with Dr. aMrtinez at [place] who will perform Sm-153 therapy. Will discharge today with home services. No fracture noted on knee X-ray (only effusion/arthritis/met in distal femur).
[2016-11-13 08:18] VITALS: BP 100/60
[2016-11-13 11:47] LABS: ABSOLUTE BASOPHIL COUNT 0 /CUMM (0.0-0.2); ABSOLUTE EOSINOPHIL COUNT 0 /CUMM (0.0-0.7); ABSOLUTE GRANULOCYTE CT 4.4 /CUMM (1.4-6.5); ABSOLUTE LYMPH COUNT 0.2 /CUMM (1.2-3.4); ABSOLUTE MONOCYTE COUNT 0.3 /CUMM (0.10-0.60); BASOPHIL % 0.3 % (0.0-2.0)
[2016-11-13 11:57] LABS: EOSINOPHIL % 0.2 % (0-5); GRANULOCYTE % 88.2 % (42.2-75.2); HEMATOCRIT 24.5 % (42-52); MEAN CORPUSCULAR HGB 28.8 PG (27.0-31.0); MEAN CORPUSCULAR HGB CONC 34.2 G/DL (33.0-37.0); MEAN CORPUSCULAR VOLUME 84.2 FL (80.0-94.0); MEAN PLATELET VOLUME 7.1 FL (7.4-10.4); PLATELET COUNT 179 /CUMM (130-400); RBC DISTRIBUTION WIDTH 17.9 % (11.5-14.5); RED BLOOD CELL CT 2.91 /CUMM (4.70-6.10)
--- NOTE | 2016-11-13 11:58 | NUR ---
pt left floor in stretcher with distribution for xray of rt knee. will await return to floor.
[2016-11-13 12:22] LABS: WHITE BLOOD CELL COUNT 4.9 /CUMM (4.8-10.8)
--- NOTE | 2016-11-13 12:27 | Patient Discharge Instructions ---
Discharge Instructions General Discharge Information You were seen/treated for: Intractable pain with metastatic prostate cancer You had these procedures: Blood transfusion 1 PRBC 11/11 Special Instructions: Please follow up with Diet Continue normal diet: Yes Recommended Diet: Regular Activity Full Activity/No Limits: No Activity Self Limited: Yes Activity Limited to: Out of Bed to Chair Additional ACTIVITY Info: Increase as tolerated Acute Coronary Syndrome Inclusion Criteria At DC or during hospital stay patient has or had the following: ACS DIAGNOSIS No Discharge Core Measures Meds if any: Prescribed or Continued at Discharge Meds if any: NOT Prescribed or Continued at Discharge Congestive Heart Failure Inclusion Criteria At DC or during hospital stay patient has or had the following: CHF DIAGNOSIS No Discharge Core Measures Meds if any: Prescribed or Continued at Discharge Meds if any: NOT Prescribed or Continued at Discharge Cerebrovascular accident Inclusion Criteria At DC or during hospital stay patient has or had the following: CVA/TIA Diagnosis No Discharge Core Measures Meds if any: Prescribed or Continued at Discharge Meds if any: NOT Prescribed or Continued at Discharge Venous thromboembolism Inclusion Criteria VTE Diagnosis No VTE Type NONE VTE Confirmed by (Test) NONE Discharge Core Measures - Per Current guidelines, there needs to be overlap - treatment for the first 5 days of Warfarin therapy. - If discharged on Warfarin prior to 5 days of - overlap therapy, the patient will need to be - assessed for post discharge needs including - *Post discharge parental anticoagulation - *Warfarin and/or parental anticoagulation education - *Follow up date to check INR post discharge At least 5 days overlap therapy as Inpatient No Meds if any: Prescribed or Continued at Discharge Note: Overlap Therapy is Warfarin and Anticoagulant Meds if any: NOT Prescribed or Continued at Discharge
[2016-11-13] MEDS ORDERED: CELEBREX100 M1 PO (12:30)
[2016-11-13] MEDS ORDERED: OXYCODONE HCL10 M2 PO (12:56)
[2016-11-13] MEDS ORDERED: DURAGESIC1 EAC3 TOP (12:56)
[2016-11-13] MEDS ORDERED: FENTANYL1 EAC5 TOP (12:59)
--- NOTE | 2016-11-13 16:06 | RADIOLOGY REPORT ---
EXAMINATION: XR KNEE, RIGHT CLINICAL INFORMATION: Right-sided knee pain. Knee joint effusion. Prostate cancer with bone metastases. COMPARISON: Right femur films dated 08/03/2013. Bone scan dated 11/02/2015. TECHNIQUE: Four views of the right knee. FINDINGS: There is a moderate size suprapatellar knee joint effusion. No acute fracture or dislocation is seen. No abnormal sclerotic bone lesion is seen in the knee. There is, however, abnormal sclerotic density present in the mid femoral shaft, incompletely included, progressed when compared to 08/03/2013, but unchanged judging by the appearance on the 11/02/2015 bone scan. There is moderate tricompartmental degenerative change in the right knee joint with joint space narrowing, spurring, and cystic changes seen. No soft tissue calcifications are noted. IMPRESSION: 1. Moderate size suprapatellar knee joint effusion. 2. Moderate tricompartmental osteoarthritic changes in the right knee joint. 3. Abnormal sclerotic density in the mid femoral shaft, partially included on this exam, consistent with metastatic prostate cancer. Appearance is unchanged from bone scan from 11/02/2015. No impending fracture is seen.
[2016-11-13 16:11] VITALS: BP 110/58
== END 2016-11-13 19:40 | disposition home health service (06) | DRG 543 ==
LOC: ENRESERVDT → ENRESERVTM → ERH 12:36 → 2NB 19:09 → ENPENDDIS 19:09 → ERHI 19:09 → 2NB 22:05
PROVIDERS: Emergency Medicine; Internal Medicine; ADMIT Student in an Organized Health Care Education/Training Program
PROC: 30233N1 Transfusion of Nonautologous Red Blood Cells into Peripheral Vein, Percutaneous Approach (ICD-10-PCS; principal; 2016-11-11)
DX: C79.51 Secondary malignant neoplasm of bone (principal); E87.1 Hypo-osmolality and hyponatremia; C61 Malignant neoplasm of prostate; E46 Unspecified protein-calorie malnutrition; D53.9 Nutritional anemia, unspecified; F41.8 Other specified anxiety disorders; Z68.25 Body mass index [BMI] 25.0-25.9, adult
CPT/HCPCS: 2NBP; 72147; 72149; 72157; 72158; 73560-RT; 81001; 86920; 87040; 87086; 96374; 96375; 96376; 97110-GO; 97116-GO; 97162-GP; 97530-GO; A9579; J0131; J1650; J7042; P9016

== ENCOUNTER 2016-11-19 19:29 | Inpatient (IN) | payer OTHER, MEDICARE ==
[~2016-11-19] VITALS: Ht 165.1 cm; Wt 68.0 kg
[~2016-11-19 19:29] MED LIST changes: +CELEBREX100 M1 PO; +FENTANYL1 EAC5 TOP; +LORAZEPAM0.5 M1 PO; +OXYCODONE HCL10 M2 PO
--- NOTE | 2016-11-19 19:40 | NUR ---
PER PT BONE PAIN ALL OVER EVERY DAY 2NDARY TO BONE CANCER, PT EASILY IRRITABLE AND UNABLE TO COMPLETE TRIAGE PROCESS PT STATES YOU ARE ASKING TOO MUCH, WAIT FOR MY .
--- NOTE | 2016-11-19 19:48 | ED GENERAL ADULT ---
See Addendum History of Present Illness General Chief Complaint: General Adult Stated Complaint: "PAIN ALL OVER" Source: patient, family Exam Limitations: poor historian Vital Signs & Intake/Output Vital Signs & Intake/Output Vital Signs Date Time Temp Pulse Resp B/P Pulse O2 O2 Flow FiO2 Ox Delivery Rate 11/192 98.6 11/20 2035 98 Room Air 11/19 1946 98.6 122 22 116/66 96 Room Air Allergies Coded Allergies: clams (Intermediate, UNKNOWN REACTION TO RAW CLAMS 09/04/16) Reconcile Medications Calcium Carbonate/Vitamin D3 (Caltrate 600 + D Tablet) 1 EACH TABLET 1 TAB PO BID SUPPLEMENT (Reported) Cholecalciferol (Vitamin D3) 1,000 UNIT TABLET 2 TAB PO DAILY SUPPLEMENT ( Reported) Docusate Sodium (Colace) 100 MG CAPSULE 1 CAP PO BID STOOL SOFTENER (Reported ) Fentanyl 100 MCG/HOUR PATCH.TD72 1 PAT TOP Q3D pain Fluoxetine HCl 20 MG CAPSULE 1 CAP PO DAILY MENTAL HEALTH (Reported) Lorazepam 0.5 MG TABLET 1 TAB PO Q4 HRS NEEDED ANXIETY (Reported) Ondansetron (Zofran Odt) 4 MG TAB.RAPDIS 1 TAB SL TID PRN NAUSEA/VOMITING ( Reported) Oxycodone HCl 10 MG TABLET 20 MG PO Q3P PRN PAIN SCALE 4-6 (MODERATE) Polyethylene Glycol 3350 (Miralax) 17 GM POWD.PACK 1 PAC PO DAILY CONSTIPATION (Reported) dissolve in water Triage Note: PER PT BONE PAIN ALL OVER EVERY DAY 2NDARY TO BONE CANCER, PT EASILY IRRITABLE AND UNABLE TO COMPLETE TRIAGE PROCESS PT STATES YOU ARE ASKING TOO MUCH, WAIT FOR MY . Triage Nurses Notes Reviewed? yes Onset: Abrupt Duration: day(s): Timing: recent history HPI: 11/19/16 9 PM This is a 61-year-old male who presents to the emergency department for severe intractable generalized pain and low-grade fever. He also has severe weakness. The patient has a history of stage IV metastatic prostate cancer. He was recently treated with Samarium on thursday. The onset of the symptoms were abrupt, the duration has been approximately 48 hours, the severity is significant as his symptoms required him to come to the emergency department for care. He has associated low-grade fever. Past History Travel History Traveled to [place] past 21 day No Medical History Any Pertinent Medical History? see below for history Neurological: NONE EENT: NONE Cardiovascular: NONE Respiratory: NONE Gastrointestinal: CONSTIPATION Hepatic: NONE Renal: NONE Musculoskeletal: ARTHRITIS METASTATIC CA TO BONE Psychiatric: NONE Endocrine: NONE Blood Disorders: NONE Cancer(s): METASTATIC PROSTATE CA BONE CA History of MRSA: No History of VRE: No History of CDIFF: No Surgical History Surgical History: non-contributory Psychosocial History Who do you live with Family What is your primary language Spanish Tobacco Use: Never used Family History Family History, If Any: MOTHER (Diabetes mellitus). SISTER (Breast cancer). Hx Contributory? No Review of Systems Review of Systems Constitutional: Reports: fever. EENTM: Denies: eye pain. Respiratory: Denies: short of breath. Cardiovascular: Denies: chest pain. GI: Denies: abdominal pain. Genitourinary: Reports: no symptoms. Musculoskeletal: Reports: joint pain, muscle pain. Skin: Denies: rash. Neurological/Psychological: Reports: no symptoms. Hematologic/Endocrine: Reports: no symptoms. Physical Exam Physical Exam General Appearance: awake, anxious, severe distress Head: atraumatic, normal appearance Eyes: Bilateral: normal appearance, PERRL, EOMI. Ears, Nose, Throat: normal pharynx, normal ENT inspection Neck: normal inspection, supple, full range of motion Respiratory: no respiratory distress Cardiovascular: regular rate/rhythm Peripheral Pulses: 4+ radial (R), 4+ radial (L) Gastrointestinal: non-tender Back: decreased range of motion Extremities: tenderness Neurologic/Psych: no motor/sensory deficits, awake, alert, oriented x 3 Skin: intact, normal color, warm/dry Core Measures ACS in differential dx? No CVA/TIA Diagnosis: No Severe Sepsis Present: No Septic Shock Present: No Progress Differential Diagnoses I considered the following diagnoses in my evaluation of the patient: [ metatstatic cancer, pneumonia, sepsis] Plan of Care: Orders Procedure Date/time Status Heart Healthy Diet 11/[address] in observation 11/19 2305 Active Vital Signs 11/19 2305 Active Code Status 11/19 2306 Active RAPID VIRAL INFLUENZA A 11/19 2006 Complete CULTURE,URINE 11/19 2006 Active BLOOD CULTURE 11/19 2006 Active URINALYSIS 11/19 2006 Complete COMPREHENSIVE METABOLIC PANEL 11/19 2006 Complete CBC WITHOUT DIFFERENTIAL 11/19 2006 Complete Current Medications Sig/Yessi Start time Last Medication Dose Stop Time Status Admin Fentanyl Citrate 100 MCG Q72H 11/19 2355 UNVr (Duragesic) Laboratory Tests 11/19/162122: Urinalysis MOD H, Urine Color YEL, Urine Clarity HAZY H, Urine pH 6.0, Ur Specific [place] 1.025, Urine Protein 100 H, Urine Ketones TRACE H, Urine Nitrite NEG, Urine Bilirubin NEG@ICTO, Urine Urobilinogen 1.0, Ur Leukocyte Esterase NEG, Ur Microscopic SEDIMENT EXAMINED, Urine RBC 1-3, Urine WBC 1-3 H, Ur Epithelial Cells RARE, Urine Bacteria MOD H, Urine Mucus MANY H, Urine Hemoglobin MOD H, Urine Glucose NEG 11/19/162104: Anion Gap 7, Estimated GFR > 60, BUN/Creatinine Ratio 16.0, Glucose 137 H, Calcium 7.7 L, Total Bilirubin 0.8, AST 23, ALT 33, Alkaline Phosphatase 683 H , Total Protein 4.9 L, Albumin 2.7 L, Globulin 2.2, Albumin/Globulin Ratio 1.2 , CBC w Diff NO MAN DIFF REQ, RBC 2.54 L, MCV 84.0, MCH 28.2, RDW 18.0 H, MPV 6.9 L, Gran % 82.7 H, Lymphocytes % 5.9 L, Monocytes % 11.3 H, Eosinophils % 0, Basophils % 0.1, Absolute Granulocytes 3.5, Absolute Lymphocytes 0.2 L, Absolute Monocytes 0.5, Absolute Eosinophils 0, Absolute Basophils 0, PUBS MCHC 33.6 Microbiology 11/19 2104 NASOPHARYN: Influenza Virus A & B Rapid Smear - COMP 11/19 2104 BLOOD: Blood Culture - RECD 11/19 2049 BLOOD: Blood Culture - RECD 11/19 2006 URINE ROUT: Urine Culture - ORD CXR Impression: atelectasis Initial ED EKG: none Departure Departure Disposition: STILL A PATIENT Condition: Stable Clinical Impression Primary Impression: Prostate cancer metastatic to bone Referrals: SARAH ABRAHAM,PATRICE Lopez (PCP/Family) Departure Forms: Customer Survey General Discharge Information Comments PATIENT: RACQUEL RAO PRESENT AGE: 61 PATIENT ACCOUNT NO: [id number] : 56 LOCATION: [facility] ORDERING PHYSICIAN: TARSHA WHITE DO SERVICE DATE: 11/19/16-2053 EXAM TYPE: RAD - XRY-PORTABLE CHEST XRAY EXAMINATION: XR PORTABLE CHEST CLINICAL INFORMATION: Fever. Cough. COMPARISON: Chest x-ray 11/09/2016 TECHNIQUE: Portable AP view of the chest was obtained. 9:02 PM FINDINGS: Central port catheter tip in superior vena cava. Blastic osteometastasis throughout the osseous skeleton. There is density in the retrocardiac area with silhouetting of the medial left diaphragm new since prior exam. This is focal consolidation or atelectasis. No large pleural effusion. Heart size is normal. Cardiac and mediastinal contours normal. No pulmonary vascular congestion. IMPRESSION: Dense left lung base of infiltrate and/or atelectasis. DICTATED BY: TARA ORDAZ MD DATE/TIME DICTATED:11/19/162114 ELECTROLYSIST:MISTY DATE/TIME TRANSCRIBED:11/19/162114 CONFIDENTIAL, DO NOT COPY WITHOUT APPROPRIATE AUTHORIZATION. <Electronically signed in Other Vendor System> SIGNED BY: TARA ORDAZ MD 11/19/162120 Observation Note Spoke With: RANULFO KING MD Physician Advisor Notified: TARSHA WHITE DO Rationale for Observation: My rational for observation is as follows [the patient needs to be placed in observation for IV pain medication, follow the CBC and blood cultures, discussion of long-term care]. Critical Care Note Critical Care Note Critical Care Time: non-applicable
--- NOTE | 2016-11-19 20:35 | NUR ---
THIS RN WENT IN AND CALLED DOWN FOR POWERLOCK PORT ACCESS IN A 0.75IN NEEDLE.
--- NOTE | 2016-11-19 21:16 | NUR ---
THIS RN ACCESSED PORT WITH #20 GAUGE AND A 0.75 IN NEEDLE. NS LITER #1 INFUSING AT 150ML/HR. THIS RN COLLECTED BLOOD CULTURES, LABS (BLUE, LAV, SANTOS, SST, PINK) AND FLU SWAB.
--- NOTE | 2016-11-19 21:21 | RADIOLOGY REPORT ---
EXAMINATION: XR PORTABLE CHEST CLINICAL INFORMATION: Fever. Cough. COMPARISON: Chest x-ray 11/09/2016 TECHNIQUE: Portable AP view of the chest was obtained. 9:02 PM FINDINGS: Central port catheter tip in superior vena cava. Blastic osteometastasis throughout the osseous skeleton. There is density in the retrocardiac area with silhouetting of the medial left diaphragm new since prior exam. This is focal consolidation or atelectasis. No large pleural effusion. Heart size is normal. Cardiac and mediastinal contours normal. No pulmonary vascular congestion. IMPRESSION: Dense left lung base of infiltrate and/or atelectasis.
[2016-11-19 21:23] LABS: ABSOLUTE BASOPHIL COUNT 0 /CUMM (0.0-0.2); ABSOLUTE EOSINOPHIL COUNT 0 /CUMM (0.0-0.7); ABSOLUTE GRANULOCYTE CT 3.5 /CUMM (1.4-6.5); ABSOLUTE LYMPH COUNT 0.2 /CUMM (1.2-3.4); ABSOLUTE MONOCYTE COUNT 0.5 /CUMM (0.10-0.60); BASOPHIL % 0.1 % (0.0-2.0); EOSINOPHIL % 0 % (0-5); GRANULOCYTE % 82.7 % (42.2-75.2); MEAN CORPUSCULAR HGB 28.2 PG (27.0-31.0); MEAN CORPUSCULAR HGB CONC 33.6 G/DL (33.0-37.0); MEAN PLATELET VOLUME 6.9 FL (7.4-10.4); PLATELET COUNT 217 /CUMM (130-400); RED BLOOD CELL CT 2.54 /CUMM (4.70-6.10); WHITE BLOOD CELL COUNT 4.2 /CUMM (4.8-10.8)
--- NOTE | 2016-11-19 21:24 | NUR ---
PT URINE SENT TO THE LABS
--- NOTE | 2016-11-19 21:33 | NUR ---
PT MEDICATED WITH 125MG EMILY MEDROL, 1MG DILAUDID.
[2016-11-19 21:41] LABS: HEMATOCRIT 21.4 % (42-52)
--- NOTE | 2016-11-19 21:41 | NUR ---
CRITICAL TEST RESULTS [id number] RACQUEL RAO 61 M TESTS AND RESULTS: HGB 7.2 HCT 21.4 Results received and read back by: KRISTOPHER NJ Results received date and time: 11/19/162141 The following provider was notified of the results, and read the results back: DR WHITE Notified date and time: 11/19/16 at 2142
--- NOTE | 2016-11-19 22:52 | NUR ---
PT READJUSTED FOR COMFORT AND BED LINEN CHANGED SINCE PT SWEAT THROUGH THE FIRST SET, TEMP 98.[address] WHITE AT BEDSIDE FOR POC
--- NOTE | 2016-11-19 23:14 | NUR ---
PT VOIDED 600ML.
--- NOTE | 2016-11-19 23:38 | NUR ---
PT MEDICATED WITH 0.5MG ATIVAN PO PER EMAR, HOUSE STAFF AT BEDSIDE.
--- NOTE | 2016-11-19 23:54 | NUR ---
PT MEDICATED WITH 20MG ROXICODONE AND 100MCG FENTNYAL PATCH ON RIGHT UPPER ARM PER EMAR.
--- NOTE | 2016-11-20 00:20 | History & Physical ---
FAVIO ABRAHAM,[facility] 11/20/16 0020: General Information and HPI MD Statement: I have seen and personally examined RACQUEL RAO and documented this H&P. The patient is a 61 year old M who presented with a patient stated chief complaint of intractable diffuse pain. 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 Of note, patient was recently discharged on 11/13/16 after being admitted for intractable diffuse pain. He started his samarian therapy on 11/14 and reported no acute changes in his pain until yesterday(11/19) when he started experiencing increasing diffuse pain rating it a "1000". When asked to localize his pain, he states "its all over my body". His pain progressively worsened, and decided to come in to the ED after being unable to ambulate. Patient reports that the pain is aggravated with movement and NSAIDS seem to relieve his pain. He is also on oxycontin 20 mg q 3h and Fentanyl 100 mcg q72h. Patient also complains of a chronic cough with intermittent mucus production. Patient's spouse reports fever and chills with home Tmax of 101. Patient denies any recent infection, chest pain, palpitation, shortness of breath, dizziness, nausea, vomiting, abdominal pain or dysuria. Of note, patient is seen by Dr. Montilla for his prostate cancer, and Dr. Almanza for radiation oncology. Allergies/Medications Allergies: Coded Allergies: clams (Intermediate, UNKNOWN REACTION TO RAW CLAMS 09/04/16) Home Med list Calcium Carbonate/Vitamin D3 (Caltrate 600 + D Tablet) 1 EACH TABLET 1 TAB PO BID SUPPLEMENT (Reported) Cholecalciferol (Vitamin D3) 1,000 UNIT TABLET 2 TAB PO DAILY SUPPLEMENT ( Reported) Docusate Sodium (Colace) 100 MG CAPSULE 1 CAP PO BID STOOL SOFTENER (Reported ) Fentanyl 100 MCG/HOUR PATCH.TD72 1 PAT TOP Q3D pain Fluoxetine HCl 20 MG CAPSULE 1 CAP PO DAILY MENTAL HEALTH (Reported) Lorazepam 0.5 MG TABLET 1 TAB PO Q4 HRS NEEDED ANXIETY (Reported) Ondansetron (Zofran Odt) 4 MG TAB.RAPDIS 1 TAB SL TID PRN NAUSEA/VOMITING ( Reported) Oxycodone HCl 10 MG TABLET 20 MG PO Q3P PRN PAIN SCALE 4-6 (MODERATE) Polyethylene Glycol 3350 (Miralax) 17 GM POWD.PACK 1 PAC PO DAILY CONSTIPATION (Reported) dissolve in water Past History Travel History Traveled to [place] past 21 day No Medical History Neurological: NONE EENT: NONE Cardiovascular: NONE Respiratory: NONE Gastrointestinal: CONSTIPATION Hepatic: NONE Renal: NONE Musculoskeletal: ARTHRITIS METASTATIC CA TO BONE Psychiatric: NONE Endocrine: NONE Blood Disorders: NONE Cancer(s): METASTATIC PROSTATE CA BONE CA History of MRSA: No History of VRE: No History of CDIFF: No Surgical History Surgical History: non-contributory Past Family/Social History Family History Relations & Conditions if any MOTHER (Diabetes mellitus). SISTER (Breast cancer). Psychosocial History Who Do You Live With? spouse Living Will? yes Review of Systems Review of Systems Constitutional: Reports: see HPI. EENTM: Denies: blurred vision, double vision, visual changes. Cardiovascular: Denies: chest pain, edema, palpitations. Respiratory: Reports: cough. Denies: hemoptysis, orthopnea, short of breath. GI: Denies: bloating, constipation, diarrhea. Genitourinary: Denies: frequency, hematuria, hesitation. Musculoskeletal: Reports: back pain, joint pain, muscle pain. Skin: Denies: change in skin color, change in hair/nails, dryness, erythema. Neurological/Psychological: Reports: anxiety. Denies: confusion, depressed, dementia. Hematologic/Endocrine: Denies: bruising, bleeding, polyuria. Immunologic/Allergic: Reports: no symptoms. Exam & Diagnostic Data Last 24 Hrs of Vital Signs/I&O Vital Signs Date Time Temp Pulse Resp B/P Pulse O2 O2 Flow FiO2 Ox Delivery Rate 11/20 0230 96.3 93 18 121/64 95 Room Air 11/20 0144 96.3 11/20 2251 98.6 11/20 2035 98 Room Air 11/19 1946 98.6 122 22 116/66 96 Room Air Intake & Output 11/20 0800 11/20 0000 11/19 1600 Intake Total Output Total 600 Balance -600 Output, Urine 600 Patient 72.575 kg Weight Physical Exam General Appearance Alert, Oriented X3, Cooperative, Mild Distress Skin No Significant Lesion HEENT Atraumatic, Mucous Membr. moist/pink Neck Supple, No JVD, No thryomegaly, +2 Carotid Pulse wo Bruit Lymphatic Cervical nl Cardiovascular Regular Rate, Normal S1, Normal S2, No Murmurs, Gallops, Rubs Lungs Clear to Auscultation, Normal Air Movement Abdomen Normal Bowel Sounds, Soft, mild tendersness to palpation of RLQ, no rebound or guarding noted. Neurological Normal Speech, Normal Tone, Sensation Intact Extremities No Clubbing, No Cyanosis, No Edema, Normal Pulses, No Tenderness/ Swelling Vascular Pulses Symmetrical Assessment/Plan Assessment: This is a 61-year-old gentleman with castrate resistant prostate cancer and intractable pain from bone metastases requiring samarian palliative therapy presents for evaluation of intractable diffuse pain. Assessment and plan #Intractable pain Patient does have a history of intractable back pain with previous admissions, this is in the setting of his bone metastasis from his [facility]. It is possible that this episode of acute diffuse pain is secondary from the initiation of samarium therapy, as one of the possible side effects is a temporary increase in bone pain. Plan * Will admit to general medicine floor * Will continue patient appeared therapy of oxycodone 20 mg every 3 hours and fentanyl 100 g every 72h * Will add ibuprofen 800 mg every 8 hours * Will consider APAP 1 g IV for pain augmentation, as this regimen is known to be efficacious in bone metastasis #Fever Patient reports elevated home temperatures and a chronic cough with some intermittent mucus production. Chest x-ray is suggestive of atelectasis/ pneumonia on the left lower lobe. Patient does not have leukocytosis, however his non elevated white blood cell count is most likely from myelosuppresion from chemotherapy. Plan * Will consider Ceftriaxone and Azithromycin. * Will obtain sputum cultures * Incentive spirometry #Acute on chronic Anemia Patient is not reporting any signs of acute bleeding. Anemia is normocytic most likely secondary from myelosuppression from chemotherapy. Plan * Will trend CBC in the morning with a goal of above 7, and transfuse if needed * Will monitor for any acute signs of bleeding #History of anxiety Will continue lorazepam as needed #History of depression Will continue fluoxetine #DVT prophylaxis Lovenox As Ranked By This Provider Problem List: 1. Intractable pain 2. Fever Core Measures/Miscellaneous Acute Coronary Syndrome ACS Diagnosis: No Cerebrovascular Accident CVA/TIA Diagnosis: No Congestive Heart Failure CHF Diagnosis: No Venous Thromboembolism VTE Risk Factors: Age > 40 VTE Prophylaxis Ordered Inpt: Pharm- Lovenox [facility] prophylaxis d/t: No contraindications No VTE Pharm Prophylaxis d/t: No contraindications VTE Diagnosis: No VTE Type: NONE VTE Confirmed by (Test): NONE Severe Sepsis Severe Sepsis Present: No Septic Shock Septic Shock Present: No Miscellaneous Documentation Attending Case Discussed With: RANULFO KING MD Primary Care Physician: PATRICE SMITH MD Patient sees these Specialists heme/onc radiation onc Level of Patient Care: General Medicine ISAAC ELLIS 11/20/16 0026: Resident Review Statement Resident Statement: examined this patient, discussed with internal audit senior manager, agreed with internal audit senior manager Other Findings: Patient is a 61 yo male with stage 4 hormone refractory prostate cancer with bone metastasis s/p radiotherapy currently on chemotherapy (mitoxantrene), chronic pain on opiates, history of anxiety and depression, chronic normocytic anemia, recently discharged from [facility] after being treated for severe diffuse bone pain, presented again to the [facility] with generalized pain and low-grade fever. Patient was very anxious at the time of evaluation to most of the history was obtained from the . As per patient received Samarium injection(for osteoblastic bone pain relief) at [facility]. Patient was doing okay until yesterday when he started having severe intractable generalized body aches and pains ,his appetite remained poor .Today he could not able to move because of the pain and he was brought in to the ER for further evaluation .Also reported low-grade fever with a maximum 100.6 at home associated with cough and thick phlegm. Denied any trouble breathing or chest discomfort. No urinary bowel habit complaints. Vitals on admission temperature 99.6, pulse 122, respiratory 20, blood pressure 116/6 is exaggerated more than 92% on room air. General Appearance: Alert and oriented 3 appears in moderate distress. Skin: Grossly normal HEENT: PEERLA Neck: Supple, No JVD Cardiovascular: Regular Rate, Normal S1, Normal S2, No Murmurs Lungs: Decreased respirations in the left lower lung bases Abdomen: Normal Bowel Sounds, right lower quadrant tenderness without any rebound. Neurological: Normal Speech, Strength at 5/5 X4 Ext, Cranial Nerves 3-12 NL, Reflexes 2+ Extremities: No Clubbing, No Cyanosis, No Edema Vascular: Normal Pulses Pertinent labs: WBC count 4.2, elevated granulocytes, low H&H 7.2/21.4(baseline 8.4/24.5), elevated RDW, hyponatremia 132, calcium 7.7, normal LFTs with elevated alkaline phosphatase 683. Urinalysis benign. Chest x-ray:Dense left lung base of infiltrate and/or atelectasis. Assessment and plan: 1. Intractable pain with metastatic prostate cancer: * We'll admit the GenMed floor. * Continue home medications including oxycodone 20 MG every 5-6 hours for moderate to severe pain and fentanyl patch. * Ibuprofen for mild pain and IV Dilaudid for severe pain. * Hold narcotics in case of drowsiness or sedation. * Will inform Dr. Montilla in the morning . 2. SIRS (fever, tachycardia) with chest x-ray findings consisting with atelectasis/pneumonia: * Blood cultures have been sent we will also send sputum culture. * Will do CT chest with IV contrast for further evaluation of the infiltrate. * Hold antibiotics for now pending cultures. 3. Acute on chronic normocytic anemia: * Low H&H 7.2/21, will repeat CBC in the morning if H&H below 7 we'll transfuse. * Watch for any active signs of bleed. 4.. History of anxiety and depression: * continue home dose of po Fluoxetine and po ativan 0.5 mg PRN. 5. Moderate to severe pain control with oxycodone, ibuprofen and Toradol 6. DVT prophylaxis is Lovenox 7. Patient is DNR/DNI RANULFO KING 11/20/16 0407: Attending MD Review Statement Attending Statement Attending MD Statement: examined this patient, discuss w/resident/PA/LOGISTICS CENTER MANAGER, agreed w/resident/PA/LOGISTICS CENTER MANAGER, reviewed EMR data (avail), reviewed images, amended to note Attending Assessment/Plan: CC: Pain all over, fever yesterday PMHx : Depression and anxiety, stage IV metastatic prostate cancer Patient has been undergoing palliative radiotherapy since last 6 days for bone metastases. Last week he went to [place] for the new medication Samarium for bone pain. But inserted of pain relief , his pain worsened to the extent that he could not even move today so he came to ER. Patient is generalized all over mid back, upper back, chest, bilateral thighs, 10/10, not associated with any new neurological weakness or bowel or bladder incontinence , no new fall , no LOC. He has chronic dry productive cough with thick sputum now since one month. According to patient had been having low-grade fever with 100.4 maximum at home. Vitals: Afebrile, pulse 122, RR 22, BP 116/66, saturating well on room. On exam: A O 3, cachectic, anxious, has mild chills, no obvious deformity. No edema feet , no JVD, no lymphadenopathy, mucosa dry. RS: Patient is unable to take deep breaths, clear to auscultate. CVS: S1-S2 normal, no murmur. Abdomen: Soft, NT, ND,BS+, neuro: no focal neurological deficit. Labs: WBC 4.2 granulocyte 82%, hemoglobin 7.2 decreased as compared to previous 8.4 on November 13, sodium 132, BUN 8, creatinine 0.5, calcium 7.7, alkaline phosphatase 683, albumin 2.7 CXR:Dense left lung base of infiltrate and/or atelectasis A and P #1 unresolving infiltrate on left lung base: Previous imaging reviewed , patient was previously treated with pneumonia has been unchanged since many weeks, in fact increased . Need to rule out postobstructive pneumonia, chronic aspiration or metastasis . Obtain CT chest with IV contrast . Sputum cultures, blood culture . Hold off her antibiotics for now #2 intractable pain: Secondary to stage IV metastatic prostate cancer with above -mentioned bony metastasis. Continue fentanyl patch dose at 100 g, continue home doses of oxycodone 20 mg every 6 when necessary pain, additionally start IV hydromorphone 0.5 mg every 4-6 hour when necessary severe pain and when necessary ibuprofen. #3 stage IV metastatic prostate cancer:Patient does not have any focal neurological weakness, Inform Dr. Aguilar about patient being in hospital. #4 anemia: H&H dropped from previous, repeat CBCs in a.m., transfuse 1 unit if hemoglobin drops less than 7. #5 Lovenox for DVT prophylaxis
--- NOTE | 2016-11-20 01:44 | NUR ---
PT HAS NS LITER #2 INFUSING AT 50ML/HR PER EMAR.
--- NOTE | 2016-11-20 02:03 | NUR ---
PT GOING TO ROOM 218
--- NOTE | 2016-11-20 02:25 | NUR ---
PT SLEEPING WITH RR, WILL CONTINIE TO MONITOR
--- NOTE | 2016-11-20 02:39 | NUR ---
THIS RN ATTEMPED TO CALL THE FLOOR FOR REPORT AND NO ANSWER.
--- NOTE | 2016-11-20 02:56 | NUR ---
REPORT GIVEN TO EV CASIANO.
[2016-11-20 03:40] VITALS: BP 110/66
--- NOTE | 2016-11-20 06:53 | PN- Housestaff ---
See Addendum Subjective Follow-up For: -generalized body pain -old lung infiltrate and low grade fever Subjective: Patient was seen and examined at bedside, he is alert and oriented, currently reports no pain while at rest, reports no fever or chills, is not willing to move his arms and legs as it generates pain. Denies abdominal pain, chest painm SOB, cough. Review of Systems Constitutional: Denies: chills, fever. EENTM: Reports: no symptoms. Cardiovascular: Denies: chest pain, palpitations. Respiratory: Denies: cough, short of breath. Gastrointestinal: Reports: no symptoms. Genitourinary: Reports: no symptoms. Musculoskeletal: Reports: back pain, joint pain, muscle pain (generalized pain when moving). Skin: Reports: no symptoms. Neurological/Psychological: Reports: no symptoms. Hematologic/Endocrine: Reports: no symptoms. Objective Last 24 Hrs of Vital Signs/I&O Vital Signs Date Time Temp Pulse Resp B/P Pulse O2 O2 Flow FiO2 Ox Delivery Rate 11/20 0717 97.9 92 18 110/70 94 Room Air 11/20 0340 97.8 90 20 110/66 93 Room Air 11/20 0338 Room Air 11/20 0230 96.3 93 18 121/64 95 Room Air / 0144 96.3 11/19 2252 98.6 11/19 2036 98 Room Air 11/19 1947 98.6 122 22 116/66 96 Room Air Intake & Output 11/20 1600 11/20 0800 11/20 0000 Intake Total 440 Output Total 450 300 600 Balance -450 140 -600 Intake, IV 200 Intake, Oral 240 Output, Urine 450 300 600 Patient 72.575 kg 72.575 kg Weight Physical Exam General Appearance: Alert, Oriented X3, Cooperative, No Acute Distress Skin: No Significant Lesion HEENT: Atraumatic, EOMI Neck: Supple Cardiovascular: Normal S1, Normal S2, No Murmurs Lungs: Clear to Auscultation, Normal Air Movement Abdomen: Soft, No Tenderness Neurological: Normal Speech, Strength at 5/5 X4 Ext, Normal Tone, Sensation Intact, Cranial Nerves 3-12 NL Extremities: No Edema, Normal Pulses Vascular: Normal Pulses, Pulses Symmetrical Current Medications: Current Medications Sig/Yessi Start time Last Medication Dose Route Stop Time Status Admin Enoxaparin Sodium 40 MG DAILY 11/20 1000 AC SC Fentanyl Citrate 100 MCG Q72H 11/19 2355 AC 11/19 TOP 2353 Fluoxetine HCl 20 MG DAILY 11/20 1000 AC PO Hydromorphone HCl 1 MG Q4P PRN 11/20 013 AC IV Hydromorphone HCl 0 .STK-MED ONE 11/19 2125 DC .ROUTE Hydromorphone HCl 1 MG ONCE ONE 11/19 2014 DC 11/19 IV 11/20 2015 213 Ibuprofen 600 MG Q6P PRN 11/20 003 AC PO Ketorolac 15 MG Q6P PRN 11/20 003 DC Tromethamine IV Lorazepam 0.5 MG Q6P PRN 11/20 013 AC PO 11/27 012 Lorazepam 0 .STK-MED ONE 11/19 2337 DC PO Lorazepam 0.5 MG ONCE ONE 11/19 2329 DC 11/19 PO 11/19 233 2338 Methylprednisolone 0 .STK-MED ONE 11/19 2124 DC .ROUTE Methylprednisolone 125 MG ONCE ONE 11/19 2014 DC 11/19 IV 11/20 2015 213 Oxycodone HCl 20 MG Q6-PRN PRN 11/20 003 AC 11/20 PO 0713 Oxycodone HCl 20 MG STAT STA 11/19 2299 DC 11/19 PO 11/19 230 2353 Sodium Chloride 1,000 ML Q20H 11/20 129 AC 11/20 IV 11/20 2128 0349 Sodium Chloride 1,000 ML ONCE ONE 11/19 2014 DC 11/19 IV 11/20 0254 2133 Last 24 Hrs of Lab/Daren Results Last 24 Hrs of Labs/Mics: Laboratory Tests 11/20/16 0630: Anion Gap 5, Estimated GFR > 60, BUN/Creatinine Ratio 22.5, CBC w Diff MAN DIFF ORDERED, RBC 2.49 L, MCV 83.1, MCH 28.6, RDW 17.6 H, MPV 7.0 L, Gran % 88.6 H, Lymphocytes % 7.0 L, Monocytes % 4.2, Eosinophils % 0.1, Basophils % 0.1, Absolute Granulocytes 3.2, Segmented Neutrophils 85 H, Band Neutrophils 2, Absolute Lymphocytes 0.3 L, Lymphocytes 6 L, Monocytes 5, Absolute Monocytes 0.2, Absolute Eosinophils 0, Absolute Basophils 0, Metamyelocytes 2 H, Platelet Estimate VERIFIED BY SMEAR, Polychromasia 1+, Poikilocytosis 1+, Anisocytosis 1+ , Ovalocytes 1+, PUBS MCHC 34.4 11/19/162122: Urinalysis MOD H, Urine Color YEL, Urine Clarity HAZY H, Urine pH 6.0, Ur Specific [place] 1.025, Urine Protein 100 H, Urine Ketones TRACE H, Urine Nitrite NEG, Urine Bilirubin NEG@ICTO, Urine Urobilinogen 1.0, Ur Leukocyte Esterase NEG, Ur Microscopic SEDIMENT EXAMINED, Urine RBC 1-3, Urine WBC 1-3 H, Ur Epithelial Cells RARE, Urine Bacteria MOD H, Urine Mucus MANY H, Urine Hemoglobin MOD H, Urine Glucose NEG 11/19/162104: Anion Gap 7, Estimated GFR > 60, BUN/Creatinine Ratio 16.0, Glucose 137 H, Calcium 7.7 L, Total Bilirubin 0.8, AST 23, ALT 33, Alkaline Phosphatase 683 H , Total Protein 4.9 L, Albumin 2.7 L, Globulin 2.2, Albumin/Globulin Ratio 1.2 , CBC w Diff NO MAN DIFF REQ, RBC 2.54 L, MCV 84.0, MCH 28.2, RDW 18.0 H, MPV 6.9 L, Gran % 82.7 H, Lymphocytes % 5.9 L, Monocytes % 11.3 H, Eosinophils % 0, Basophils % 0.1, Absolute Granulocytes 3.5, Absolute Lymphocytes 0.2 L, Absolute Monocytes 0.5, Absolute Eosinophils 0, Absolute Basophils 0, PUBS MCHC 33.6 Microbiology 11/20 22 LOWER RESP: Respiratory Culture - COLB 11/20 22 LOWER RESP: Gram Stain - COLB 11/19 2304 URINE ROUT: Urine Culture - RES 11/19 2104 NASOPHARYN: Influenza Virus A & B Rapid Smear - COMP 11/19 2104 BLOOD: Blood Culture - RECD 11/19 2049 BLOOD: Blood Culture - RECD Assessment/Plan Assessment: Patient is a 61 yo male with stage 4 hormone refractory prostate cancer ( diagnosed in 2007) with bone metastasis s/p radiotherapy currently on chemotherapy (mitoxantrene), chronic pain on opiates, history of anxiety and depression, chronic normocytic anemia, recently discharged from [facility] after being treated for severe diffuse bone pain, presented again to the [facility] with generalized pain and low-grade fever. Patient received radiotherapy 6 days ago after which he had intractable pain, he received Sumarium at [place] which increased his bone pain. He came to the ED as the pain was so severe that he could not move his body. Also reported low-grade fever with a maximum 100.4 at home associated with cough and thick phlegm. Patient is admited to floor for the management of pain and work up for the fever. He is also found to be anemic (chronic anemia i nthe setting of his cancer, which have been worsened after receiving sumarium). Pertinent labs: WBC count 4.2, elevated granulocytes, low H&H 7.2/21.4 (baseline 8.4/24.5), elevated RDW, hyponatremia 132, calcium 7.7, normal LFTs with elevated alkaline phosphatase 683. Urinalysis benign. Chest x-ray:Dense left lung base of infiltrate and/or atelectasis. Problem list and plan: Intractable geenralized pain in the seeting of metastatic prostate cancer: * We'll continue observe to the [facility] floor. * Continue home medications including oxycodone 20 MG every 5-6 hours for moderate to severe pain and fentanyl patch. * Ibuprofen for mild pain and IV Dilaudid for severe pain. * Hold narcotics in case of drowsiness or sedation. * Informed Dr. Montilla, and follow recommendations SIRS (fever, tachycardia) with chest x-ray findings consisting with atelectasis/ pneumonia: * Blood cultures have been sent we will also send sputum culture. * Hold antibiotics for now pending cultures. * will hold off on CT scan of the chest for now as well as antibiotics. Acute on chronic normocytic anemia: * Repeat H/H : 7.1/20.7 this am * Watch for any active signs of bleed. * per Dr. Aguilar's suugestion transfused 1 unit pRBC today * repeat CBC in AM History of anxiety and depression: * continue home dose of po Fluoxetine and po ativan 0.5 mg PRN. Moderate to severe pain control with oxycodone, ibuprofen and Toradol DVT prophylaxis is Lovenox Patient is DNR/DNI Problem List: 1. Metastatic malignant neoplasm to prostate 2. Intractable pain 3. Hypocalcemia Pain Ratin Pain Location: generalized bone pain Pain Goal: Pain 4 or less Pain Plan: ibuprofen, fentanyl patch, oxycodone, IV dilaudid Tomorrow's Labs & Rationales: CBC (anemia)
[2016-11-20 07:17] VITALS: BP 110/70
[2016-11-20 08:09] LABS: ABSOLUTE BASOPHIL COUNT 0 /CUMM (0.0-0.2); ABSOLUTE EOSINOPHIL COUNT 0 /CUMM (0.0-0.7); ABSOLUTE GRANULOCYTE CT 3.2 /CUMM (1.4-6.5); ABSOLUTE LYMPH COUNT 0.3 /CUMM (1.2-3.4); ABSOLUTE MONOCYTE COUNT 0.2 /CUMM (0.10-0.60); BASOPHIL % 0.1 % (0.0-2.0); EOSINOPHIL % 0.1 % (0-5); GRANULOCYTE % 88.6 % (42.2-75.2); HEMATOCRIT 20.7 % (42-52); MEAN CORPUSCULAR HGB 28.6 PG (27.0-31.0); MEAN CORPUSCULAR HGB CONC 34.4 G/DL (33.0-37.0); MEAN CORPUSCULAR VOLUME 83.1 FL (80.0-94.0); PLATELET COUNT 206 /CUMM (130-400); RBC DISTRIBUTION WIDTH 17.6 % (11.5-14.5); RED BLOOD CELL CT 2.49 /CUMM (4.70-6.10); WHITE BLOOD CELL COUNT 3.7 /CUMM (4.8-10.8)
--- NOTE | 2016-11-20 08:19 | NUR ---
nurse note: pt arrived to floor around 0330, via ed staff. report received from alicjarn. PT AAOX3, RA, IVF. PT ORIENTED TO ROOM, CALL CRUZ IN REACH, BED LOWEST POSITION. VSS.
[2016-11-20 14:22] VITALS: BP 122/62
[2016-11-20 22:43] VITALS: BP 118/70
--- NOTE | 2016-11-21 07:11 | PN- Housestaff ---
See Addendum Subjective Follow-up For: -generalized body pain -anemia and weakness -old lung infiltrate and low grade fever -anxiety Subjective: I saw and examined the patient at bedside, he is alert and awake and oriented, lying in bed. appears in no distress. Reports 2/10 pain in the legs, getting worse after walking. Denies fever, chills, abdominal pain, SOB, headache. Reports puffiness around the eye, present from the past. Does not wish to discuss plans for the care and asked us to talk with his about it. Review of Systems Constitutional: Reports: weakness. Denies: chills, fever. EENTM: Denies: blurred vision, hearing changes. Cardiovascular: Denies: chest pain, palpitations. Respiratory: Denies: cough, short of breath. Gastrointestinal: Denies: abdominal pain, changes in stool. Genitourinary: Reports: no symptoms. Musculoskeletal: Reports: back pain, joint pain (generalized bone pain). Skin: Reports: no symptoms. Neurological/Psychological: Reports: no symptoms. Objective Last 24 Hrs of Vital Signs/I&O Vital Signs Date Time Temp Pulse Resp B/P Pulse O2 O2 Flow FiO2 Ox Delivery Rate 11/21 0749 97.6 103 20 130/80 95 Room Air 11/20 2243 97.5 93 20 118/70 95 11/20 1557 Room Air 11/20 1422 97.9 91 20 122/62 94 Room Air Intake & Output 11/21 1600 11/21 0800 11/21 0000 Intake Total 250 Output Total 200 Balance -200 250 Intake, Oral 250 Output, Urine 200 Physical Exam General Appearance: Alert, Oriented X3, Cooperative, No Acute Distress Skin: No Significant Lesion HEENT: Atraumatic, EOMI Neck: Supple, No JVD Cardiovascular: Regular Rate, Normal S1, Normal S2, No Murmurs Lungs: Clear to Auscultation, Normal Air Movement Abdomen: Soft, No Tenderness Neurological: Normal Speech, Normal Tone, 4+/5 forces on the lowr extrmities and right arm, 5/5 force on the left arm. Extremities: No Edema, Normal Pulses Current Medications: Current Medications Sig/Yessi Start time Last Medication Dose Route Stop Time Status Admin Calcium/Vitamin D 500 MG BID 11/20 2200 AC 11/21 PO 0940 Cholecalciferol 2,000 IU DAILY 11/21 1000 AC 11/21 PO 0940 Docusate Sodium 100 MG BID 11/20 2200 AC 11/21 PO 0940 Enoxaparin Sodium 40 MG DAILY 11/20 1000 AC 11/21 SC 0938 Fentanyl Citrate 100 MCG Q72H 11/22 1000 AC TOP Fentanyl Citrate 100 MCG Q72H 11/19 2355 AC 11/19 TOP 11/22 0959 2353 Fluoxetine HCl 20 MG DAILY 11/21 1000 CAN PO Fluoxetine HCl 20 MG DAILY 11/20 1000 AC 11/21 PO 0940 Hydromorphone HCl 1 MG Q4P PRN 11/20 0130 AC IV Ibuprofen 600 MG Q6P PRN 11/20 0030 AC 11/21 PO 0939 Lorazepam 0.5 MG Q4 HRS NEEDED PRN 11/20 1600 AC 11/21 PO 11/27 1559 0939 Lorazepam 0.5 MG Q6P PRN 11/20 0130 DC 11/20 PO 11/27 0129 1429 Ondansetron HCl 4 MG TID PRN 11/20 1600 AC PO Oxycodone HCl 20 MG Q4P PRN 11/20 1600 AC 11/21 PO 0809 Oxycodone HCl 20 MG Q6-PRN PRN 11/20 0030 DC 11/20 PO 0713 Polyethylene Glycol 17 GM BID PRN 11/20 1600 AC PO Sodium Chloride 1,000 ML Q20H 11/20 0130 DC 11/20 IV 11/20 2129 0349 Last 24 Hrs of Lab/Daren Results Last 24 Hrs of Labs/Mics: Laboratory Tests 11/21/16 0600: CBC w Diff NO MAN DIFF REQ, RBC 2.53 L, MCV 85.6, MCH 29.0, RDW 17.5 H, MPV 7.7, Gran % 82.7 H, Lymphocytes % 6.0 L, Monocytes % 11.1 H, Eosinophils % 0.1, Basophils % 0.1, Absolute Granulocytes 2.9, Absolute Lymphocytes 0.2 L, Absolute Monocytes 0.4, Absolute Eosinophils 0, Absolute Basophils 0, PUBS MCHC 33.9 Assessment/Plan Assessment: Patient is a 61 yo male with stage 4 hormone refractory prostate cancer ( diagnosed in 2007) with bone metastasis s/p radiotherapy currently on chemotherapy (mitoxantrene), chronic pain on opiates, history of anxiety and depression, chronic normocytic anemia, recently discharged from [facility] after being treated for severe diffuse bone pain, presented again to the [facility] with generalized pain and low-grade fever. Patient received radiotherapy 6 days ago after which he had intractable pain, he received Sumarium at [place] which increased his bone pain. He came to the ED as the pain was so severe that he could not move his body. Also reported low-grade fever with a maximum 100.4 at home associated with cough and thick phlegm. Patient is admited to floor for the management of pain and work up for the fever. He is also found to be anemic (chronic anemia in the setting of his cancer, which have been worsened after receiving sumarium). Pertinent labs: WBC count 4.2, elevated granulocytes, low H&H 7.2/21.4 (baseline 8.4/24.5), elevated RDW, hyponatremia 132, calcium 7.7, normal LFTs with elevated alkaline phosphatase 683. Urinalysis benign. Chest x-ray:Dense left lung base of infiltrate and/or atelectasis. Problem list and plan: Intractable generalized pain in the setting of metastatic prostate cancer: * Continue home medications including oxycodone 20 MG every 5-6 hours for moderate to severe pain and fentanyl patch. * Added Ibuprofen for mild pain and IV Dilaudid for severe pain. * Hold narcotics in case of drowsiness or sedation. * Dr. Montilla will discuss with the patient's regarding the treatment plans SIRS (fever, tachycardia) with chest x-ray findings consisting with atelectasis/ pneumonia: * Blood cultures have been sent we will also send sputum culture. * Hold antibiotics for now pending cultures. * will hold off on CT scan of the chest for now as well as antibiotics. Acute on chronic normocytic anemia: * Repeat H/H : 7.3/21.6 this am * Watch for any active signs of bleed. * transfused 1 unit pRBC yesterday * repeated CBC this AM, transfused another unti of pRBCs History of anxiety and depression: * continue home dose of po Fluoxetine and po ativan 0.5 mg PRN. Moderate to severe pain control with oxycodone, ibuprofen and Toradol DVT prophylaxis is Lovenox Patient is DNR/DNI Problem List: 1. Malignant tumor of prostate 2. Prostate cancer metastatic to multiple sites 3. Intractable pain Pain Ratin Pain Location: generalized Pain Goal: Pain 4 or less Pain Plan: fentanyl patch ibuprofen oxycodone IV dilaudid Tomorrow's Labs & Rationales: CBC (anemia)
--- NOTE | 2016-11-21 07:13 | Cons- Oncology ---
General Information and HPI Consulting Request Date of Consult: 11/21/16 Requested By: MICHELLE ABRAHAM,CODIE Najera History of Present Illness: 61-year-old gentleman well-known to me with advanced prostate cancer, hormone resistant now admitted fever and generalized pain. Patient recently seeks samarium his last chemotherapy was mitoxantrone. Patient currently has significant shortness of breath productive sputum or hemoptysis. Patient has marked pain on movement. Patient denies focal neurologic deficit Allergies/Medications Allergies: Coded Allergies: clams (Intermediate, UNKNOWN REACTION TO RAW CLAMS 09/04/16) Home Med List: Calcium Carbonate/Vitamin D3 (Caltrate 600 + D Tablet) 1 EACH TABLET 1 TAB PO BID SUPPLEMENT (Reported) Cholecalciferol (Vitamin D3) 1,000 UNIT TABLET 2 TAB PO DAILY SUPPLEMENT ( Reported) Docusate Sodium (Colace) 100 MG CAPSULE 1 CAP PO BID STOOL SOFTENER (Reported ) Fentanyl 100 MCG/HOUR PATCH.TD72 1 PAT TOP Q3D pain Fluoxetine HCl 20 MG CAPSULE 1 CAP PO DAILY MENTAL HEALTH (Reported) Lorazepam 0.5 MG TABLET 1 TAB PO Q4 HRS NEEDED ANXIETY (Reported) Ondansetron (Zofran Odt) 4 MG TAB.RAPDIS 1 TAB SL TID PRN NAUSEA/VOMITING ( Reported) Oxycodone HCl 10 MG TABLET 20 MG PO Q3P PRN PAIN SCALE 4-6 (MODERATE) Polyethylene Glycol 3350 (Miralax) 17 GM POWD.PACK 1 PAC PO DAILY CONSTIPATION (Reported) dissolve in water Current Medications: Current Medications Sig/Yessi Start time Last Medication Dose Route Stop Time Status Admin Calcium/Vitamin D 500 MG BID 11/20 2199 AC 11/20 PO 2239 Cholecalciferol 2,000 IU DAILY 11/21 1000 AC PO Docusate Sodium 100 MG BID 11/20 2200 AC 11/20 PO 2240 Enoxaparin Sodium 40 MG DAILY 11/20 1000 AC 11/20 SC 1044 Fentanyl Citrate 100 MCG Q72H 11/22 1000 AC TOP Fentanyl Citrate 100 MCG Q72H 11/19 2355 AC 11/19 TOP 11/22 0959 2353 Fluoxetine HCl 20 MG DAILY 11/21 1000 CAN PO Fluoxetine HCl 20 MG DAILY 11/20 1000 AC 11/20 PO 1044 Hydromorphone HCl 1 MG Q4P PRN 11/20 0130 AC IV Ibuprofen 600 MG Q6P PRN 11/20 0030 AC PO Lorazepam 0.5 MG Q4 HRS NEEDED PRN 11/20 1600 AC 11/20 PO 11/27 1559 2240 Lorazepam 0.5 MG Q6P PRN 11/20 0130 DC 11/20 PO 11/27 0129 1429 Ondansetron HCl 4 MG TID PRN 11/20 1600 AC PO Oxycodone HCl 20 MG Q4P PRN 11/20 1600 AC 11/21 PO 0330 Oxycodone HCl 20 MG Q6-PRN PRN 11/20 0030 DC 11/20 PO 0713 Polyethylene Glycol 17 GM BID PRN 11/20 1600 AC PO Sodium Chloride 1,000 ML Q20H 11/20 0130 DC 11/20 IV 11/20 2129 0349 Review of Systems Review of Systems: Patient denies new headaches or dizziness. Patient denies chest pain or hemoptysis. Patient denies nausea vomiting or change in bowel habits. Patient denied dysuria hematuria Past History Travel History Traveled to [place] past 21 day No Medical History Neurological: NONE EENT: NONE Cardiovascular: NONE Respiratory: NONE Gastrointestinal: CONSTIPATION Hepatic: NONE Renal: NONE Musculoskeletal: ARTHRITIS METASTATIC CA TO BONE Psychiatric: NONE Endocrine: NONE Blood Disorders: NONE Cancer(s): METASTATIC PROSTATE CA BONE CA Surgical History Surgical History: non-contributory Family History Relations & Conditions If Any: MOTHER (Diabetes mellitus). SISTER (Breast cancer). Psychosocial History Who Do You Live With? spouse Smoking Status: Former Smoker Living Will? yes Exam & Diagnostic Data Vital Signs and I&O Vital Signs Date Time Temp Pulse Resp B/P Pulse O2 O2 Flow FiO2 Ox Delivery Rate 11/203 97.5 93 20 118/70 95 / 1557 Room Air 11/20 1422 97.9 91 20 122/62 94 Room Air 11/20 0717 97.9 92 18 110/70 94 Room Air Intake & Output 11/21 0800 11/21 0000 11/20 1600 Intake Total 250 1270 Output Total 450 Balance 250 820 Intake, IV 300 Intake, Oral 250 970 Output, Urine 450 Gen.: in NAD ENT: Sclera anicteric Chest: Normal respiratory effort, decreased breath sounds Cor: RRR, no extra sounds Abdomen: Soft, bowel sounds present, no tenderness, Extremities: Without clubbing, cyanosis, or asymmetric edema Neurology: Alert and oriented 3, no gross deficit Skin: No rashes Last 48 Hours of Lab Results: Laboratory Tests 11/21 03 0600 0630 Chemistry Sodium (137 - 145 mmol/L) 135 L Potassium (3.5 - 5.1 mmol/L) 4.5 Chloride (98 - 107 mmol/L) 100 Carbon Dioxide (22 - 30 mmol/L) 29 Anion Gap (5 - 16) 5 BUN (9 - 20 mg/dL) 9 Creatinine (0.7 - 1.2 mg/dL) 0.4 L Estimated GFR (>60 ml/min) > 60 BUN/Creatinine Ratio (7 - 25 %) 22.5 Hematology CBC w Diff Pending MAN DIFF ORDERED WBC (4.8 - 10.8 /CUMM) Pending 3.7 L RBC (4.70 - 6.10 /CUMM) Pending 2.49 L Hgb (14.0 - 18.0 G/DL) Pending 7.1 *L Hct (42 - 52 %) Pending 20.7 L MCV (80.0 - 94.0 FL) Pending 83.1 MCH (27.0 - 31.0 PG) Pending 28.6 RDW (11.5 - 14.5 %) Pending 17.6 H Plt Count (130 - 400 /CUMM) Pending 206 MPV (7.4 - 10.4 FL) Pending 7.0 L Gran % (42.2 - 75.2 %) 88.6 H Lymphocytes % (20.5 - 51.1 %) 7.0 L Monocytes % (1.7 - 9.3 %) 4.2 Eosinophils % (0 - 5 %) 0.1 Basophils % (0.0 - 2.0 %) 0.1 Absolute Granulocytes (1.4 - 6.5 /CUMM) 3.2 Segmented Neutrophils (42.2 - 75.2 %) 85 H Band Neutrophils (0.0 - 5.0 %) 2 Absolute Lymphocytes (1.2 - 3.4 /CUMM) 0.3 L Lymphocytes (20.5 - 51.1 %) 6 L Monocytes (1.7 - 9.3 %) 5 Absolute Monocytes (0.10 - 0.60 /CUMM) 0.2 Absolute Eosinophils (0.0 - 0.7 /CUMM) 0 Absolute Basophils (0.0 - 0.2 /CUMM) 0 Metamyelocytes (0.0 - 1.0 %) 2 H Platelet Estimate (ADEQUATE) VERIFIED BY SMEAR Polychromasia 1+ Poikilocytosis 1+ Anisocytosis 1+ Ovalocytes 1+ PUBS MCHC (33.0 - 37.0 G/DL) Pending 34.4 11/19 11/19 2123 2105 Chemistry Sodium (137 - 145 mmol/L) 132 L Potassium (3.5 - 5.1 mmol/L) 4.1 Chloride (98 - 107 mmol/L) 95 L Carbon Dioxide (22 - 30 mmol/L) 30 Anion Gap (5 - 16) 7 BUN (9 - 20 mg/dL) 8 L Creatinine (0.7 - 1.2 mg/dL) 0.5 L Estimated GFR (>60 ml/min) > 60 BUN/Creatinine Ratio (7 - 25 %) 16.0 Glucose (65 - 99 mg/dL) 137 H Calcium (8.4 - 10.2 mg/dL) 7.7 L Total Bilirubin (0.2 - 1.3 mg/dL) 0.8 AST (17 - 59 U/L) 23 ALT (21 - 72 U/L) 33 Alkaline Phosphatase (< 127 U/L) 683 H Total Protein (6.3 - 8.2 g/dL) 4.9 L Albumin (3.5 - 5.0 g/dL) 2.7 L Globulin (1.9 - 4.2 gm/dL) 2.2 Albumin/Globulin Ratio (1.1 - 2.2 %) 1.2 Hematology CBC w Diff NO MAN DIFF REQ WBC (4.8 - 10.8 /CUMM) 4.2 L RBC (4.70 - 6.10 /CUMM) 2.54 L Hgb (14.0 - 18.0 G/DL) 7.2 *L Hct (42 - 52 %) 21.4 L MCV (80.0 - 94.0 FL) 84.0 MCH (27.0 - 31.0 PG) 28.2 RDW (11.5 - 14.5 %) 18.0 H Plt Count (130 - 400 /CUMM) 217 MPV (7.4 - 10.4 FL) 6.9 L Gran % (42.2 - 75.2 %) 82.7 H Lymphocytes % (20.5 - 51.1 %) 5.9 L Monocytes % (1.7 - 9.3 %) 11.3 H Eosinophils % (0 - 5 %) 0 Basophils % (0.0 - 2.0 %) 0.1 Absolute Granulocytes (1.4 - 6.5 /CUMM) 3.5 Absolute Lymphocytes (1.2 - 3.4 /CUMM) 0.2 L Absolute Monocytes (0.10 - 0.60 /CUMM) 0.5 Absolute Eosinophils (0.0 - 0.7 /CUMM) 0 Absolute Basophils (0.0 - 0.2 /CUMM) 0 PUBS MCHC (33.0 - 37.0 G/DL) 33.6 Urines Urinalysis MOD H Urine Color (YEL,AMB,STR) YEL Urine Clarity (CLEAR) HAZY H Urine pH (5.0 - 8.0) 6.0 Ur Specific [place] (1.001 - 1.035) 1.025 Urine Protein (NEG,<30 MG/DL) 100 H Urine Ketones (NEG) TRACE H Urine Nitrite (NEG) NEG Urine Bilirubin (NEG) NEG@ICTO Urine Urobilinogen (0.1 - 1.0 EU/dl) 1.0 Ur Leukocyte Esterase (NEG) NEG Ur Microscopic SEDIMENT EXAMINED Urine RBC (0 - 5 /HPF) 1-3 Urine WBC (0 - 2 /HPF) 1-3 H Ur Epithelial Cells (NONE,FEW) RARE Urine Bacteria (NEG/NONE) MOD H Urine Mucus (FEW,NONE) MANY H Urine Hemoglobin (NEG) MOD H Urine Glucose (N MG/DL) NEG Imaging/Other Studies: Chest g-ohw-deuwumgo pneumonia Assessment/Plan Assessment: Advanced prostate cancer-patient has had progressive metastatic prostate cancer despite chemotherapy and radiation. I again broached the subject of comfort care only. Patient wished not to discussion in depth. Recommend Analgesia Hopefully patient will be discharged soon I will be speaking to his later today Prognosis-very poor Recommendations: .. Consult Acknowledgment - Thank you for your consult request.
[2016-11-21 07:49] VITALS: BP 130/80
[2016-11-21 08:48] LABS: ABSOLUTE BASOPHIL COUNT 0 /CUMM (0.0-0.2); ABSOLUTE EOSINOPHIL COUNT 0 /CUMM (0.0-0.7); ABSOLUTE GRANULOCYTE CT 2.9 /CUMM (1.4-6.5); ABSOLUTE LYMPH COUNT 0.2 /CUMM (1.2-3.4); ABSOLUTE MONOCYTE COUNT 0.4 /CUMM (0.10-0.60); BASOPHIL % 0.1 % (0.0-2.0); EOSINOPHIL % 0.1 % (0-5); GRANULOCYTE % 82.7 % (42.2-75.2); HEMATOCRIT 21.6 % (42-52); MEAN CORPUSCULAR HGB CONC 33.9 G/DL (33.0-37.0); MEAN CORPUSCULAR VOLUME 85.6 FL (80.0-94.0); MEAN PLATELET VOLUME 7.7 FL (7.4-10.4); PLATELET COUNT 204 /CUMM (130-400); RBC DISTRIBUTION WIDTH 17.5 % (11.5-14.5); RED BLOOD CELL CT 2.53 /CUMM (4.70-6.10); WHITE BLOOD CELL COUNT 3.5 /CUMM (4.8-10.8)
--- NOTE | 2016-11-21 13:00 | NUR ---
PATIENT'S IMPLANTED PORT WAS DEACCESSED, AND REACCESSED UNDER STERILE PROCEDURE, DUE TO MOISTURE UNDER THE DRESSING.
[2016-11-21 14:51] VITALS: BP 102/68
--- NOTE | 2016-11-21 18:47 | Patient Discharge Instructions ---
Discharge Instructions General Discharge Information You were seen/treated for: Bone pain Anemia You had these procedures: Blood transfusion x2 units Watch for these problems: Fever, shortness of breath, coughing, dizziness. Special Instructions: Please: 1- follow up with Dr. Aguilar within 1 week after discharge 2- follow up with your PCP araceli 1-2 weeks after discharge 3- follow up with a custom motorcycle painter within 1 week after discharge Diet Continue normal diet: Yes Recommended Diet: Regular Activity Activity Self Limited: Yes Acute Coronary Syndrome Inclusion Criteria At DC or during hospital stay patient has or had the following: ACS DIAGNOSIS No Discharge Core Measures Meds if any: Prescribed or Continued at Discharge Meds if any: NOT Prescribed or Continued at Discharge Congestive Heart Failure Inclusion Criteria At DC or during hospital stay patient has or had the following: CHF DIAGNOSIS No Discharge Core Measures Meds if any: Prescribed or Continued at Discharge Meds if any: NOT Prescribed or Continued at Discharge Cerebrovascular accident Inclusion Criteria At DC or during hospital stay patient has or had the following: CVA/TIA Diagnosis No Discharge Core Measures Meds if any: Prescribed or Continued at Discharge Meds if any: NOT Prescribed or Continued at Discharge Venous thromboembolism Inclusion Criteria VTE Diagnosis No VTE Type NONE VTE Confirmed by (Test) NONE Discharge Core Measures - Per Current guidelines, there needs to be overlap - treatment for the first 5 days of Warfarin therapy. - If discharged on Warfarin prior to 5 days of - overlap therapy, the patient will need to be - assessed for post discharge needs including - *Post discharge parental anticoagulation - *Warfarin and/or parental anticoagulation education - *Follow up date to check INR post discharge At least 5 days overlap therapy as Inpatient No Meds if any: Prescribed or Continued at Discharge Note: Overlap Therapy is Warfarin and Anticoagulant Meds if any: NOT Prescribed or Continued at Discharge
[2016-11-21 22:38] VITALS: BP 118/78
[2016-11-22 06:56] VITALS: BP 126/70
[2016-11-22 08:45] LABS: ABSOLUTE BASOPHIL COUNT 0 /CUMM (0.0-0.2); ABSOLUTE EOSINOPHIL COUNT 0 /CUMM (0.0-0.7); ABSOLUTE GRANULOCYTE CT 2.9 /CUMM (1.4-6.5); ABSOLUTE LYMPH COUNT 0.3 /CUMM (1.2-3.4); ABSOLUTE MONOCYTE COUNT 0.4 /CUMM (0.10-0.60); BASOPHIL % 0.3 % (0.0-2.0); EOSINOPHIL % 0.6 % (0-5); GRANULOCYTE % 80.6 % (42.2-75.2); MEAN CORPUSCULAR HGB 28.8 PG (27.0-31.0); MEAN CORPUSCULAR HGB CONC 33.5 G/DL (33.0-37.0); MEAN CORPUSCULAR VOLUME 85.9 FL (80.0-94.0); PLATELET COUNT 222 /CUMM (130-400); RBC DISTRIBUTION WIDTH 16.8 % (11.5-14.5); RED BLOOD CELL CT 2.92 /CUMM (4.70-6.10); WHITE BLOOD CELL COUNT 3.6 /CUMM (4.8-10.8)
--- NOTE | 2016-11-22 09:33 | PN- Housestaff ---
PATEL ABRAHAM,ALLYN 11/22/16 0932: Subjective Follow-up For: Generalized body pain, anemia and weakness Lung infiltrates which is old low-grade fever Anxiety Subjective: Patient reports his pain is still 7 x 10. Had a very small bowel movement after Fleet enema. No overnight events noted. Review of Systems Constitutional: Reports: see HPI. Objective Last 24 Hrs of Vital Signs/I&O Vital Signs Date Time Temp Pulse Resp B/P Pulse O2 O2 Flow FiO2 Ox Delivery Rate 11/22 0656 97.6 84 20 126/70 95 11/21 2238 97.8 90 20 118/78 99 Room Air Intake & Output 11/22 1600 11/22 0800 11/22 0000 Intake Total 120 970 Output Total Balance 120 970 Intake, Blood 350 Product Intake, IV 100 Intake, Oral 120 520 Physical Exam General Appearance: Alert, Oriented X3, Cooperative, No Acute Distress Skin: No Rashes Cardiovascular: Regular Rate, Normal S1, Normal S2, No Murmurs Lungs: Clear to Auscultation Abdomen: Normal Bowel Sounds, Soft, No Tenderness Neurological: Normal Speech, Normal Tone Extremities: No Clubbing, No Cyanosis, No Edema Current Medications: Current Medications Sig/Yessi Start time Last Medication Dose Route Stop Time Status Admin Calcium/Vitamin D 500 MG BID 11/200 AC 11/22 PO 1117 Cholecalciferol 2,000 IU DAILY 11/21 1000 AC 11/22 PO 1117 Docusate Sodium 100 MG BID 11/20 2200 AC 11/22 PO 1117 Enoxaparin Sodium 40 MG DAILY 11/20 1000 AC 11/22 SC 1118 Fentanyl Citrate 100 MCG Q72H 11/22 1000 AC TOP Fentanyl Citrate 100 MCG Q72H 11/19 2355 DC 11/19 TOP 11/22 0959 2353 Fluoxetine HCl 20 MG DAILY 11/20 1000 AC 11/22 PO 1118 Heparin Sodium 500 UNIT SEE ADMIN CRITERIA.. 11/22 0345 AC (Porcine) IV Hydromorphone HCl 1 MG Q4P PRN 11/20 0130 AC IV Ibuprofen 600 MG Q6P PRN 11/20 0030 AC 11/21 PO 0939 Lorazepam 0.5 MG Q4 HRS NEEDED PRN 11/20 1600 AC 11/22 PO 11/27 1559 0826 Ondansetron HCl 4 MG TID PRN 11/20 1600 AC PO Oxycodone HCl 30 MG Q4P PRN 11/22 1415 AC PO Oxycodone HCl 20 MG Q4P PRN 11/20 1600 DC 11/22 PO 1235 Polyethylene Glycol 17 GM DAILY 11/22 1015 AC 11/22 PO 1118 Polyethylene Glycol 17 GM BID PRN 11/20 1600 DC PO Last 24 Hrs of Lab/Daren Results Last 24 Hrs of Labs/Mics: Laboratory Tests 11/22/16 0630: CBC w Diff NO MAN DIFF REQ, RBC 2.92 L, MCV 85.9, MCH 28.8, RDW 16.8 H, MPV 7.0 L, Gran % 80.6 H, Lymphocytes % 7.3 L, Monocytes % 11.2 H, Eosinophils % 0.6, Basophils % 0.3, Absolute Granulocytes 2.9, Absolute Lymphocytes 0.3 L, Absolute Monocytes 0.4, Absolute Eosinophils 0, Absolute Basophils 0, PUBS MCHC 33.5 Assessment/Plan Assessment: Patient is a 61 yo male with stage 4 hormone refractory prostate cancer ( diagnosed in 2007) with bone metastasis s/p radiotherapy currently on chemotherapy (mitoxantrene), chronic pain on opiates, history of anxiety and depression, chronic normocytic anemia, recently discharged from [facility] after being treated for severe diffuse bone pain, presented again to the [facility] with generalized pain and low-grade fever. Patient received radiotherapy 6 days ago after which he had intractable pain, he received Sumarium at [place] which increased his bone pain. He came to the ED as the pain was so severe that he could not move his body. Also reported low-grade fever with a maximum 100.4 at home associated with cough and thick phlegm. Patient is admited to floor for the management of pain and work up for the fever. He is also found to be anemic (chronic anemia in the setting of his cancer, which have been worsened after receiving sumarium). Problem list and plan: Intractable generalized pain in the setting of metastatic prostate cancer: * Continue home medications including oxycodone 20 MG every 5-6 hours for moderate to severe pain and fentanyl patch. * Ibuprofen for mild pain and IV Dilaudid for severe pain. * Hold narcotics in case of drowsiness or sedation. We will try to contact pain management for this patient SIRS (fever, tachycardia) with chest x-ray findings consisting with atelectasis/ pneumonia: * Blood cultures have been sent we will also send sputum culture. * Hold antibiotics for now pending cultures. * will hold off on CT scan of the chest for now as well as antibiotics. Acute on chronic normocytic anemia: * Repeat H&H this morning is 8.4/25.0 * There is no active evidence of bleeding although his guaiac positive * Received 1 unit pRBC * Patient appears hemodynamically stable. We will continue to watch History of anxiety and depression: * continue home dose of po Fluoxetine and po ativan 0.5 mg PRN. Stage IV metastatic prostate cancer: - Patient has advanced metastatic prostate cancer which is progressive despite chemotherapy and radiation. - Dr. Montilla following the patient - Patient in the positive discussing hospice options Moderate to severe pain control with oxycodone, ibuprofen and Toradol DVT prophylaxis is Lovenox Patient is DNR/DNI Problem List: 1. Intractable pain 2. Generalized pain 3. Prostate cancer metastatic to bone 4. Anemia Pain Ratin Pain Location: generalised Pain Goal: Pain 4 or less Pain Plan: as mentioned in medications Tomorrow's Labs & Rationales: yes CHADWICK ABRAHAM,[facility] 11/22/16 1407: Attending MD Review Statement Attending Statement Attending MD Statement: examined this patient, discuss w/resident/PA/OPERATIONS DEVELOPER, agreed w/resident/PA/OPERATIONS DEVELOPER, discussed with family, reviewed EMR data (avail), discussed with nursing, discussed with case mgmt, reviewed images, amended to note Attending Assessment/Plan: Patient seen and examined, not feeling well. Still complain of excruciating pain everywhere in the body including his legs, his back, his arms. Patient has a history of metastatic prostate cancer with metastases to bone. Status post samarian therapy in the beginning of October. present at bedside. Vital Signs Date Time Temp Pulse Resp B/P Pulse O2 O2 Flow FiO2 Ox Delivery Rate 11/22 0656 97.6 84 20 126/70 95 11/21 2238 97.8 90 20 118/78 99 Room Air 11/21 1451 97.7 86 20 102/68 97 on exam; aox3, nad. mild distress 2/2 to pain. cv; s1,s2, rrr. resp; clear. abd; soft, nt, bs+ ext; no edema. Laboratory Tests 11/22 06 Hematology CBC w Diff NO MAN DIFF REQ WBC (4.8 - 10.8 /CUMM) 3.6 L RBC (4.70 - 6.10 /CUMM) 2.92 L Hgb (14.0 - 18.0 G/DL) 8.4 L Hct (42 - 52 %) 25.0 L MCV (80.0 - 94.0 FL) 85.9 MCH (27.0 - 31.0 PG) 28.8 RDW (11.5 - 14.5 %) 16.8 H Plt Count (130 - 400 /CUMM) 222 MPV (7.4 - 10.4 FL) 7.0 L Gran % (42.2 - 75.2 %) 80.6 H Lymphocytes % (20.5 - 51.1 %) 7.3 L Monocytes % (1.7 - 9.3 %) 11.2 H Eosinophils % (0 - 5 %) 0.6 Basophils % (0.0 - 2.0 %) 0.3 Absolute Granulocytes (1.4 - 6.5 /CUMM) 2.9 Absolute Lymphocytes (1.2 - 3.4 /CUMM) 0.3 L Absolute Monocytes (0.10 - 0.60 /CUMM) 0.4 Absolute Eosinophils (0.0 - 0.7 /CUMM) 0 Absolute Basophils (0.0 - 0.2 /CUMM) 0 PUBS MCHC (33.0 - 37.0 G/DL) 33.5 A/P: 61-year-old male with history of metastatic prostate cancer with metastases to bones undergoing palliative radiotherapy and has received Samarian treatment. At this point patient's pain is not controlled with the current regimen. We will go up on the dose of his oxycodone. Continue the fentanyl patch. We tried to call her pain management doctor but unfortunately their office is closed today. At this point we'll try to manage the pain by going up on oxycodone. Continue all other current medications. DVT prophylaxis: Lovenox. Patient will need to go to rehabilitation then pain is under better control.
--- NOTE | 2016-11-22 11:44 | Discharge Summary ---
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 Vitals and admission blood pressure 116/66, respiration 22, pulse rate 122 which improved to 93, temperature 98.6, oxygen saturation 96% on room air. Labs: WBC 4.2 granulocyte 82%, hemoglobin 7.2 decreased as compared to previous 8.4 on November 13, sodium 132, BUN 8, creatinine 0.5, calcium 7.7, alkaline phosphatase 683, albumin 2.7 CXR: Dense left lung base of infiltrate and/or atelectasis Hospital course 1. Source (fever, tachycardia with chest x-ray consistent for atelectasis/ pneumonia which is unchanged from previous x-ray patient was treated for pneumonia in the past. He was followed off of antibiotics. He remained afebrile. All his cultures including blood and urine cultures were negative. His cultures including blood and urine were negative. 2. Intractable pain: Secondary to stage IV metastatic prostate cancer with above -mentioned bony metastasis. Recently he was on oxycodone 20 mg every 5-6 hours and fentanyl patch 100 mcg. Contacted the patient's powder coat painter Dr. Urszula Sweeney, . Recommendations for medication adjustment : * Increase fentanyl from 100 up to 125mcg Q72hrs. If persistent pain we could increase this up to 150mcg * PO Dilaudid 4 mg Q4-6PRN for severe pain * We will continue him on 30 mg oxycodone Q4PRN which is up from his previous dose of 20 mg Q^ 3. stage IV metastatic prostate cancer: He was seen by oncology while in the hospital. Patient has advanced prostate cancer with progressive metastatis despite chemotherapy and radiation. Patient in the process of discussing hospice options. 4. anemia: Likely a side effect of chemotherapy for bone metastases given about a week ago patient received 2 units of blood transfusion and his H&H improved from 7.2-8.4 on the day of discharge. 5. Constipation patient received tap water enema and had a bowel movement following that. He was continued on his home bowel regimen which included MiraLAX and Colace. DNR/DNI DVT prophylaxis with Lovenox Allergies: Coded Allergies: clams (Intermediate, UNKNOWN REACTION TO RAW CLAMS 09/04/16) Significant Procedures: Transfused 2 units PRBC Pertinent Lab Results: Laboratory Tests 11/22 11/21 0630 0600 Hematology CBC w Diff NO MAN DIFF REQ NO MAN DIFF REQ WBC (4.8 - 10.8 /CUMM) 3.6 L 3.5 L RBC (4.70 - 6.10 /CUMM) 2.92 L 2.53 L Hgb (14.0 - 18.0 G/DL) 8.4 L 7.3 *L Hct (42 - 52 %) 25.0 L 21.6 L MCV (80.0 - 94.0 FL) 85.9 85.6 MCH (27.0 - 31.0 PG) 28.8 29.0 RDW (11.5 - 14.5 %) 16.8 H 17.5 H Plt Count (130 - 400 /CUMM) 222 204 MPV (7.4 - 10.4 FL) 7.0 L 7.7 Gran % (42.2 - 75.2 %) 80.6 H 82.7 H Lymphocytes % (20.5 - 51.1 %) 7.3 L 6.0 L Monocytes % (1.7 - 9.3 %) 11.2 H 11.1 H Eosinophils % (0 - 5 %) 0.6 0.1 Basophils % (0.0 - 2.0 %) 0.3 0.1 Absolute Granulocytes (1.4 - 6.5 /CUMM) 2.9 2.9 Absolute Lymphocytes (1.2 - 3.4 /CUMM) 0.3 L 0.2 L Absolute Monocytes (0.10 - 0.60 /CUMM) 0.4 0.4 Absolute Eosinophils (0.0 - 0.7 /CUMM) 0 0 Absolute Basophils (0.0 - 0.2 /CUMM) 0 0 PUBS MCHC (33.0 - 37.0 G/DL) 33.5 33.9 03/02 0630 Chemistry Sodium (137 - 145 mmol/L) 135 L Potassium (3.5 - 5.1 mmol/L) 4.5 Chloride (98 - 107 mmol/L) 100 Carbon Dioxide (22 - 30 mmol/L) 29 Anion Gap (5 - 16) 5 BUN (9 - 20 mg/dL) 9 Creatinine (0.7 - 1.2 mg/dL) 0.4 L Estimated GFR (>60 ml/min) > 60 BUN/Creatinine Ratio (7 - 25 %) 22.5 TSH (0.270 - 4.200 uIU/mL) 0.420 Free T4 (0.78 - 2.44 ng/dL) 1.74 Hematology CBC w Diff MAN DIFF ORDERED WBC (4.8 - 10.8 /CUMM) 3.7 L RBC (4.70 - 6.10 /CUMM) 2.49 L Hgb (14.0 - 18.0 G/DL) 7.1 *L Hct (42 - 52 %) 20.7 L MCV (80.0 - 94.0 FL) 83.1 MCH (27.0 - 31.0 PG) 28.6 RDW (11.5 - 14.5 %) 17.6 H Plt Count (130 - 400 /CUMM) 206 MPV (7.4 - 10.4 FL) 7.0 L Gran % (42.2 - 75.2 %) 88.6 H Lymphocytes % (20.5 - 51.1 %) 7.0 L Monocytes % (1.7 - 9.3 %) 4.2 Eosinophils % (0 - 5 %) 0.1 Basophils % (0.0 - 2.0 %) 0.1 Absolute Granulocytes (1.4 - 6.5 /CUMM) 3.2 Segmented Neutrophils (42.2 - 75.2 %) 85 H Band Neutrophils (0.0 - 5.0 %) 2 Absolute Lymphocytes (1.2 - 3.4 /CUMM) 0.3 L Lymphocytes (20.5 - 51.1 %) 6 L Monocytes (1.7 - 9.3 %) 5 Absolute Monocytes (0.10 - 0.60 /CUMM) 0.2 Absolute Eosinophils (0.0 - 0.7 /CUMM) 0 Absolute Basophils (0.0 - 0.2 /CUMM) 0 Metamyelocytes (0.0 - 1.0 %) 2 H Platelet Estimate (ADEQUATE) VERIFIED BY SMEAR Polychromasia 1+ Poikilocytosis 1+ Anisocytosis 1+ Ovalocytes 1+ PUBS MCHC (33.0 - 37.0 G/DL) 34.4 11/193 2105 Chemistry Sodium (137 - 145 mmol/L) 132 L Potassium (3.5 - 5.1 mmol/L) 4.1 Chloride (98 - 107 mmol/L) 95 L Carbon Dioxide (22 - 30 mmol/L) 30 Anion Gap (5 - 16) 7 BUN (9 - 20 mg/dL) 8 L Creatinine (0.7 - 1.2 mg/dL) 0.5 L Estimated GFR (>60 ml/min) > 60 BUN/Creatinine Ratio (7 - 25 %) 16.0 Glucose (65 - 99 mg/dL) 137 H Calcium (8.4 - 10.2 mg/dL) 7.7 L Total Bilirubin (0.2 - 1.3 mg/dL) 0.8 AST (17 - 59 U/L) 23 ALT (21 - 72 U/L) 33 Alkaline Phosphatase (< 127 U/L) 683 H Total Protein (6.3 - 8.2 g/dL) 4.9 L Albumin (3.5 - 5.0 g/dL) 2.7 L Globulin (1.9 - 4.2 gm/dL) 2.2 Albumin/Globulin Ratio (1.1 - 2.2 %) 1.2 Hematology CBC w Diff NO MAN DIFF REQ WBC (4.8 - 10.8 /CUMM) 4.2 L RBC (4.70 - 6.10 /CUMM) 2.54 L Hgb (14.0 - 18.0 G/DL) 7.2 *L Hct (42 - 52 %) 21.4 L MCV (80.0 - 94.0 FL) 84.0 MCH (27.0 - 31.0 PG) 28.2 RDW (11.5 - 14.5 %) 18.0 H Plt Count (130 - 400 /CUMM) 217 MPV (7.4 - 10.4 FL) 6.9 L Gran % (42.2 - 75.2 %) 82.7 H Lymphocytes % (20.5 - 51.1 %) 5.9 L Monocytes % (1.7 - 9.3 %) 11.3 H Eosinophils % (0 - 5 %) 0 Basophils % (0.0 - 2.0 %) 0.1 Absolute Granulocytes (1.4 - 6.5 /CUMM) 3.5 Absolute Lymphocytes (1.2 - 3.4 /CUMM) 0.2 L Absolute Monocytes (0.10 - 0.60 /CUMM) 0.5 Absolute Eosinophils (0.0 - 0.7 /CUMM) 0 Absolute Basophils (0.0 - 0.2 /CUMM) 0 PUBS MCHC (33.0 - 37.0 G/DL) 33.6 Urines Urinalysis MOD H Urine Color (YEL,AMB,STR) YEL Urine Clarity (CLEAR) HAZY H Urine pH (5.0 - 8.0) 6.0 Ur Specific [place] (1.001 - 1.035) 1.025 Urine Protein (NEG,<30 MG/DL) 100 H Urine Ketones (NEG) TRACE H Urine Nitrite (NEG) NEG Urine Bilirubin (NEG) NEG@ICTO Urine Urobilinogen (0.1 - 1.0 EU/dl) 1.0 Ur Leukocyte Esterase (NEG) NEG Ur Microscopic SEDIMENT EXAMINED Urine RBC (0 - 5 /HPF) 1-3 Urine WBC (0 - 2 /HPF) 1-3 H Ur Epithelial Cells (NONE,FEW) RARE Urine Bacteria (NEG/NONE) MOD H Urine Mucus (FEW,NONE) MANY H Urine Hemoglobin (NEG) MOD H Urine Glucose (N MG/DL) NEG Disposition Summary Disposition Principal Diagnosis: Chronic pain Additional Diagnosis: Anemia Discharge Disposition: SNF Discharge Instructions General Discharge Information Code Status: Do Not Resucitate/Intubat Patient's Diet: Regular diet Patient's Activity: As tolerated. Ambulation with a walker Follow-Up Instructions/Appts: Please follow up with your PCP within 1 week after discharge. Please follow up with your powder coat painter within the next 1 week. Please follow up with Dr Aguilar later this week for possible chemotherapy. Medications at Discharge Discharge Medications: Stop taking the following medications: Oxycodone HCl (Oxycodone HCl) 10 MG TABLET ORAL EVERY 3 HOURS NEEDED as needed for PAIN SCALE 4-6 (MODERATE) Qty = 30 Continue taking these medications: Ondansetron (Zofran Odt) 4 MG TAB.RAPDIS 1 Tablet SUBLINGUAL THREE TIMES DAILY as needed for NAUSEA/VOMITING Qty = 30 Comments: Last Taken: 11/24/16 Time: 1 PM Fluoxetine HCl (Fluoxetine HCl) 20 MG CAPSULE 1 Capsule ORAL DAILY Qty = 90 Comments: Last Taken: 11/24/16 Time: 10 AM Calcium Carbonate/Vitamin D3 (Caltrate 600 + D Tablet) 1 EACH TABLET 1 Tablet ORAL TWICE DAILY Comments: Last Taken: 11/25/16 Time: 10 AM Cholecalciferol (Vitamin D3) 1,000 UNIT TABLET 2 Tablet ORAL DAILY Comments: Last Taken: 11/25/16 Time: 10 AM Docusate Sodium (Colace) 100 MG CAPSULE 1 Capsule ORAL TWICE DAILY Comments: Last Taken: 11/25/16 Time: 10 AM Polyethylene Glycol 3350 (Miralax) 17 GM POWD.PACK 1 Packet ORAL DAILY Instructions: dissolve in water Comments: Last Taken: 11/25/16 Time: 10 AM Lorazepam (Lorazepam) 0.5 MG TABLET 1 Tablet ORAL EVERY 4 HOURS NEEDED Qty = 75 Comments: Last Taken:11/25/16 Time: 3 PM Fentanyl (Fentanyl) 100 MCG/HOUR PATCH.TD72 1 Patch On the skin Every 3 days Qty = 4 Comments: Last Taken: 11/22/16 Time: 1O PM Start taking the following new medications: Fentanyl (Fentanyl) 25 MCG/HOUR PATCH.TD72 1 Patch On the skin Q72H Qty = 10 No Refills Oxycodone HCl (Oxycodone HCl) 30 MG TABLET 1 Tablet ORAL Every 4 hours as needed for Moderate pain Qty = 30 No Refills Comments: NOT GIVEN AT HOSPITAL Hydromorphone HCl (Dilaudid) 4 MG TABLET 1 Tablet ORAL EVERY 4-6 HOURS as needed for Severe pain Qty = 30 No Refills Comments: Last Taken: 11/25/16 Time: 2 PM Triethanolamine (Trolamine) 100 % SOLUTION 1 DROP OTIC DAILY Qty = 1 No Refills Comments: NOT GIVEN AT HOSPITAL Fluticasone Propionate (Flonase Allergy Relief) 50 MCG/ACTUATION SPRAY.SUSP 1 PUFF Both sides of nose DAILY as needed for Hearing change Qty = 1 No Refills Comments: NOT GIVEN AT HOSPITAL Copies To: JAMES ABRAHAM,JEEVAN Marte Attending MD Review Statement Documenting Attending: WILFRED MILLS MD Other Findings: The patient was seen on the day of discharge and agree with the plan of care. Some ear congestion with some cerumen in right ear. Will use Cerumenex daily x 5 days. Also add saline and Flonase nasal spray for Eustachian tube dysfunction.
[2016-11-22 15:15] VITALS: BP 112/63
--- NOTE | 2016-11-22 20:07 | NUR ---
PT C/O UNILATERAL EAR PAIN. NO OBVIOUS REDNESS OR DRAINAGE PRESENT. MD TOLENTINO NOTIFIED AND REPORTED SHE WOULD COME TO ASSESS PT'S EAR. UNABLE TO COME UP D/T EMERGENCIES. DR. STAHL THEN CONTACTED- PER MD, TO GET REPORT AND FOLLOW UP. NIGHT RN TO MONITOR.
--- NOTE | 2016-11-22 20:09 | NUR ---
DR. STAHL ALSO CONTACTED TO ASK FOR EXTENSION OF OBSERVATION. TO LOOK INTO IT. STEPHEN RN TO FOLLOW.
[2016-11-22 22:45] VITALS: BP 124/72
[2016-11-23 06:39] VITALS: BP 142/88
--- NOTE | 2016-11-23 08:21 | PN- Housestaff ---
See Addendum Subjective Follow-up For: Strip metastatic prostate cancer Generalized body pain Anemia Generalized weakness Anxiety Complaints: Intermittent body aches Subjective: Interval history: There are no major events overnight. He does report episodes of body pains with an average of 4-5/10 or Roxicodone has been adjusted to 30 mg PO Q4PRN Review of Systems Constitutional: Reports: see HPI. EENTM: Reports: no symptoms. Cardiovascular: Reports: no symptoms. Respiratory: Reports: no symptoms. Gastrointestinal: Reports: see HPI. Genitourinary: Reports: no symptoms. Musculoskeletal: Reports: see HPI. Objective Last 24 Hrs of Vital Signs/I&O Vital Signs Date Time Temp Pulse Resp B/P Pulse O2 O2 Flow FiO2 Ox Delivery Rate 11/23 0639 97.9 98 20 142/88 95 / 2245 98.4 82 20 124/72 95 Room Air / 1515 99.2 95 20 112/63 93 Room Air Intake & Output 11/23 1600 11/23 0800 11/23 0000 Intake Total 340 240 Output Total Balance 340 240 Intake, Oral 340 240 Physical Exam General Appearance: Alert, Cooperative, Sleepy at this time. reports some body aches Skin: No Rashes, No Breakdown HEENT: Mucous Membr. moist/pink Cardiovascular: Regular Rate, Normal S1, Normal S2 Lungs: Normal Air Movement, Dimnished breath sounds in the basilar regions Abdomen: Normal Bowel Sounds, Soft, No Tenderness Neurological: Normal Speech Extremities: No Edema Current Medications: Current Medications Sig/Yessi Start time Last Medication Dose Route Stop Time Status Admin Calcium/Vitamin D 500 MG BID 11/20 2199 AC 11/22 PO 2148 Cholecalciferol 2,000 IU DAILY 11/21 1000 AC 11/22 PO 1117 Docusate Sodium 100 MG BID 11/20 2199 AC 11/22 PO 2148 Enoxaparin Sodium 40 MG DAILY 11/20 1000 AC 11/22 SC 1118 Fentanyl Citrate 100 MCG Q72H 11/22 220 AC 11/22 TOP 2150 Fentanyl Citrate 100 MCG Q72H 11/22 1000 DC TOP Fluoxetine HCl 20 MG DAILY 11/20 1000 AC 11/22 PO 1118 Heparin Sodium 500 UNIT SEE ADMIN CRITERIA.. 11/22 0345 AC (Porcine) IV Hydromorphone HCl 1 MG Q4P PRN 11/20 0130 AC IV Ibuprofen 600 MG Q6P PRN 11/20 0030 AC 11/21 PO 0939 Lorazepam 0.5 MG Q4 HRS NEEDED PRN 11/20 1600 AC 11/22 PO 11/27 1559 2306 Ondansetron HCl 4 MG TID PRN 11/20 1600 AC PO Oxycodone HCl 30 MG Q4P PRN 11/22 1415 AC 11/23 PO 0610 Oxycodone HCl 20 MG Q4P PRN 11/20 1600 DC 11/22 PO 1235 Polyethylene Glycol 17 GM DAILY 11/22 1015 AC 11/22 PO 1118 Last 24 Hrs of Lab/Daren Results Last 24 Hrs of Labs/Mics: Microbiology 11/22 1929 LOWER RESP: Respiratory Culture - RES 11/22 1929 LOWER RESP: Gram Stain - RES Assessment/Plan Assessment: Patient is a 61 yo male with stage 4 hormone refractory prostate cancer ( diagnosed in 2007) with bone metastasis s/p radiotherapy currently on chemotherapy (mitoxantrene), chronic pain on opiates, history of anxiety and depression, chronic normocytic anemia, recently discharged from [facility] after being treated for severe diffuse bone pain, presented again to the [facility] with generalized pain and low-grade fever. Patient received radiotherapy 6 days ago after which he had intractable pain, he received Sumarium at [facility] which increased his bone pain. He came to the ED as the pain was so severe that he could not move his body. Also reported low-grade fever with a maximum 100.4 at home associated with cough and thick phlegm. Patient is admited to floor for the management of pain and work up for the fever. He is also found to be anemic (chronic anemia in the setting of his cancer, which have been worsened after receiving sumarium). Problem list and plan: Intractable generalized pain in the setting of metastatic prostate cancer: * We'll plan to discharge the patient on adjustments made on his pain regiment: Oxycodone 30 mg Q4P up from 20 mg Q6 * Continue with fentanyl patch 100 g * Ibuprofen for mild pain and IV Dilaudid for severe pain. * Hold narcotics in case of drowsiness or sedation. * Post discharge follow-up with his painter and body work SIRS (fever, tachycardia) with chest x-ray findings consisting with atelectasis/ pneumonia: * Ultrasound remain negative thus far * Patient has remained afebrile over the past 72 hours Acute on chronic normocytic anemia: * H&H on 11/22/2016: 8.4/25.0 * Stable at this time History of anxiety and depression: * continue home dose of po Fluoxetine and po ativan 0.5 mg PRN. Stage IV metastatic prostate cancer: * Planned chemotherapy this week with Dr. Montilla. We'll plan to discharge the patient to rehabilitation and follow-up with Dr. Montilla for his scheduled treatment DVT prophylaxis is Lovenox Patient is DNR/DNI Problem List: 1. Anemia 2. Metastatic malignant neoplasm to prostate 3. Generalized pain Pain Ratin Pain Location: Diffuse body aches Pain Goal: Pain 4 or less Pain Plan: Oxycodone 30 mg Fentanyl patch Tomorrow's Labs & Rationales: None required DVT/Prophylaxis: pharmacological Discharge Plan Discharge Disposition: STR/NH Stable for Discharge? Yes Anticipated Discharge (Day): today If Discharged Today/In 24 Hrs: enter ant[facility] discharge ord, W-10/discharge paper done, DC summary done, CMR done
[2016-11-23 15:18] VITALS: BP 126/64
--- NOTE | 2016-11-23 18:40 | NUR ---
LATE ENTRY: PT ASSISTED TO BATHROOM AND HELPED BACK TO CHAIR FOR DINNER. PT THEN REPORTED SEVERE PAIN "EVERYWHERE" POINTING TO HIS BACK, GROIN AND LEGS. DR. LATHAM CONTACTED NO PAIN RX ON ORDER FOR SEVERE PAIN AT PRESENT. SEE ONE TIME ORDER FOR IV DILAUDID. MED ADMINISTERED. PT ASSISTED TO BED. AT BEDSIDE. EDUCATION PROVIDED. WILL CONT TO MONITOR.
[2016-11-23 23:42] VITALS: BP 116/74
[2016-11-24 06:03] VITALS: BP 120/68
--- NOTE | 2016-11-24 07:04 | PN- Oncology ---
Subjective Subjective: Offers no new complaints, pain slightly improved Review of Systems: 12 point review of systems otherwise unchanged Objective Vital Signs and I&Os Vital Signs Date Time Temp Pulse Resp B/P Pulse O2 O2 Flow FiO2 Ox Delivery Rate 11/24 0603 96.8 100 120/68 95 Room Air 11/23 2342 98.1 112 20 116/74 94 Room Air 11/23 1518 97.9 96 18 126/64 95 Room Air Intake & Output 11/24 0811/24 0000 11/23 1600 11/23 0811/23 0000 11/22 1600 Intake Total 400 100 460 650 826 9973 Output Total 600 Balance 400 100 460 340 240 600 Intake, IV 10 Intake, Oral 400 100 450 115 380 4095 Number 1 Bowel Movements Output, Urine 600 Gen.: in NAD ENT: Sclera anicteric Chest: Normal respiratory effort, decreased breath sounds Cor: RRR, no extra sounds Abdomen: Soft, bowel sounds present, no tenderness, no rebound Extremities: Without clubbing, cyanosis, or asymmetric edema Neurology: Alert and oriented 3, no gross deficit Current Medications: Current Medications Sig/Yessi Start time Last Medication Dose Route Stop Time Status Admin Calcium Carbonate 500 MG ONCE ONE 11/23 224 DC 11/23 PO 11/23 2246 2307 Calcium/Vitamin D 500 MG BID 11/20 2199 AC 11/23 PO 2210 Cholecalciferol 2,000 IU DAILY 11/21 1000 AC 11/23 PO 1042 Docusate Sodium 100 MG BID 11/20 2200 AC 11/23 PO 2210 Enoxaparin Sodium 40 MG DAILY 11/20 1000 AC 11/23 SC 1044 Fentanyl Citrate 100 MCG Q72H 11/22 220 AC 11/22 TOP 2150 Fluoxetine HCl 20 MG DAILY 11/20 1000 AC 11/23 PO 1042 Heparin Sodium 500 UNIT SEE ADMIN CRITERIA.. 11/22 0345 AC (Porcine) IV Hydromorphone HCl 1 MG ONCE ONE 11/23 1845 DC 11/23 IV 11/23 1846 1845 Hydromorphone HCl 6 MG Q4 PRN 11/23 1515 AC 11/24 PO 0609 Hydromorphone HCl 1 MG Q4P PRN 11/20 0130 DC IV Ibuprofen 600 MG Q6P PRN 11/20 0030 AC 11/21 PO 0939 Lorazepam 0.5 MG Q4 HRS NEEDED PRN 11/20 1600 AC 11/24 PO 11/27 1559 0326 Ondansetron HCl 4 MG TID PRN 11/20 1600 AC PO Oxycodone HCl 30 MG Q4P PRN 11/22 1415 DC 11/23 PO 1505 Polyethylene Glycol 17 GM DAILY 11/22 1015 AC 11/23 PO 1043 Results Last 24 Hours of Lab Results: See labs sheet Assessment/Plan Assessment/Recommendations: Advanced prostate cancer- Likely rehabilitation Pain control Follow-up my office
--- NOTE | 2016-11-24 09:17 | PN- Housestaff ---
JAVON ABRAHAM,[facility] 11/24/16 0917: Subjective Follow-up For: Generalized bone pain Subjective: I saw and examined the patient this am, he is lying in bed and watching TV, he reports increase in his pain over the past two days, does not appear in distress , pain is generalized in upper and lower extremities and worsens on ambulation. Denies coughing, SOB, dizziness, abdominal pain, chest pain or palpitation. Review of Systems Constitutional: Reports: weakness. EENTM: Reports: no symptoms. Cardiovascular: Reports: no symptoms. Respiratory: Denies: cough, short of breath, sputum production. Gastrointestinal: Reports: no symptoms. Genitourinary: Reports: no symptoms. Musculoskeletal: Reports: back pain, joint pain. Denies: joint swelling (generalized bone pain). Skin: Reports: no symptoms. Neurological/Psychological: Reports: anxiety, weakness. Denies: ataxia, numbness, tremors. Hematologic/Endocrine: Reports: no symptoms. Objective Last 24 Hrs of Vital Signs/I&O Vital Signs Date Time Temp Pulse Resp B/P Pulse O2 O2 Flow FiO2 Ox Delivery Rate 11/24 0603 96.8 100 120/68 95 Room Air 11/23 2342 98.1 112 20 116/74 94 Room Air 11/23 1518 97.9 96 18 126/64 95 Room Air Intake & Output 11/24 1600 11/24 0800 11/24 0000 Intake Total 400 100 Output Total Balance 400 100 Intake, Oral 400 100 Physical Exam General Appearance: Alert, Oriented X3, Cooperative, No Acute Distress Skin: No Breakdown HEENT: Atraumatic, EOMI Neck: Supple, No JVD Cardiovascular: Regular Rate, Normal S1, Normal S2, No Murmurs Lungs: Clear to Auscultation, Normal Air Movement Abdomen: Soft, No Tenderness Neurological: Normal Speech, Normal Tone Extremities: No Edema, Normal Pulses, No Tenderness/Swelling Vascular: Pulses Symmetrical Current Medications: Current Medications Sig/Yessi Start time Last Medication Dose Route Stop Time Status Admin Calcium Carbonate 500 MG ONCE ONE 11/23 2244 DC 11/23 PO 11/23 2245 230 Calcium/Vitamin D 500 MG BID 11/20 2199 AC 11/24 PO 1038 Cholecalciferol 2,000 IU DAILY 11/21 1000 AC 11/24 PO 1038 Docusate Sodium 100 MG BID 11/20 2199 AC 11/24 PO 1038 Enoxaparin Sodium 40 MG DAILY 11/20 1000 AC 11/24 SC 1038 Fentanyl Citrate 100 MCG Q72H 11/22 2200 AC 11/22 TOP 2150 Fluoxetine HCl 20 MG DAILY 11/20 1000 AC 11/24 PO 1038 Heparin Sodium 500 UNIT SEE ADMIN CRITERIA.. 11/22 0345 AC (Porcine) IV Hydromorphone HCl 1 MG ONCE ONE 11/23 1845 DC 11/23 IV 11/23 1846 1845 Hydromorphone HCl 6 MG Q4 PRN 11/23 1515 AC 11/24 PO 1036 Hydromorphone HCl 1 MG Q4P PRN 11/20 0130 DC IV Ibuprofen 600 MG Q6P PRN 11/20 0030 AC 11/21 PO 0939 Lorazepam 0.5 MG Q4 HRS NEEDED PRN 11/20 1600 AC 11/24 PO 11/27 1559 0826 Ondansetron HCl 4 MG TID PRN 11/20 1600 AC 11/24 PO 1254 Oxycodone HCl 30 MG Q4P PRN 11/22 1415 DC 11/23 PO 1505 Polyethylene Glycol 17 GM DAILY 11/22 1015 AC 11/24 PO 1038 Assessment/Plan Assessment: Patient is a 61 yo male with stage 4 hormone refractory prostate cancer ( diagnosed in 2007) with bone metastasis s/p radiotherapy currently on chemotherapy (mitoxantrene), chronic pain on opiates, history of anxiety and depression, chronic normocytic anemia, recently discharged from [facility] after being treated for severe diffuse bone pain, presented again to the [facility] with generalized pain and low-grade fever. Patient received radiotherapy 6 days ago after which he had intractable pain, he received Sumarium at [place] which increased his bone pain. He came to the ED as the pain was so severe that he could not move his body. Also reported low-grade fever with a maximum 100.4 at home associated with cough and thick phlegm. Patient is admited to floor for the management of pain and work up for the fever. He is also found to be anemic (chronic anemia in the setting of his cancer, which have been worsened after receiving sumarium). Patient is admitted to the general medicine floor due to itractable pain, nausea and poor oral intake, and to monitor H/H. Problem list and plan: Intractable generalized pain in the setting of metastatic prostate cancer: *We contacted the pain management office today (Dr. Urszula Sweeney, . She advised us to go up on the fentanyl patch to 125 g Q72h and if still in pain increase it up to 150 g Q72. If the pain gets more controlled using fentanyl patch will decrease the PO dilaudid to 4 mg Q4-6 PRN. * continue Oxycodone 30 mg Q4P up from 20 mg Q6 * increased fentanyl patch to 125 g from 100 g. * Ibuprofen for mild pain and IV Dilaudid for severe pain. * Hold narcotics in case of drowsiness or sedation. * Post discharge follow-up with his paint line operator SIRS (fever, tachycardia) with chest x-ray findings consisting with atelectasis/ pneumonia: * Ultrasound remain negative thus far * Patient has remained afebrile during his stay Acute on chronic normocytic anemia: * H&H on 11/22/2016: 8.4/25.0 * Stable at this time * repeat CBC tomorrow am History of anxiety and depression: * continue home dose of po Fluoxetine and po ativan 0.5 mg PRN. Stage IV metastatic prostate cancer: * Planned chemotherapy this week with Dr. Montilla. We'll plan to discharge the patient to rehabilitation and follow-up with Dr. Montilla for his scheduled treatment DVT prophylaxis is Lovenox Patient is DNR/DNI Problem List: 1. Anemia 2. Metastatic malignant neoplasm to prostate 3. Intractable pain 4. Generalized pain Pain Ratin Pain Location: upper and lower extremities, ribs Pain Goal: Pain 4 or less Pain Plan: tylenol and ibuprofen for mild- moderate pain fentanyl and oxocodone for severe pain Tomorrow's Labs & Rationales: CBC (anemia) WILFRED MILLS MD 11/24/16 2214: Attending MD Review Statement Attending Statement Attending MD Statement: examined this patient, discuss w/resident/PA/TRANSFER CAR OPERATOR DRIER, agreed w/resident/PA/TRANSFER CAR OPERATOR DRIER, discussed with family, reviewed EMR data (avail), discussed with nursing, discussed with case mgmt, amended to note Attending Assessment/Plan: The patient was seen and discussed with house staff and patient's . Still with significant pain. PO intake poor- some nausea. Discussed with his pain specialist and will increase Fentanyl patch as instructed and follow. Convert to full admission.
[2016-11-24 15:04] VITALS: BP 111/61
[2016-11-25] VITALS: BP 120/76
[2016-11-25 06:11] VITALS: BP 121/71
[2016-11-25 06:25] VITALS: BP 118/76
--- NOTE | 2016-11-25 07:17 | PN- Housestaff ---
JAVON ABRAHAM,[facility] 11/25/16 0717: Subjective Follow-up For: Generalized pain Nausea Poor appetite Anemia Subjective: I saw and examined the patient this morning, he is alert and oriented in no distress, reports pain in all his body, denies nausea today, reports low appetite. Reports feeling his ears are clogged especially while up and out of bed. the symptoms went away as he came back to bed. He went out of bed and walked on the floor this morning. Did not notice gait imbalance or dizziness however reports pain. Review of Systems Constitutional: Reports: weakness. Denies: chills, fever. EENTM: Reports: no symptoms. Cardiovascular: Denies: chest pain, palpitations. Respiratory: Denies: cough, short of breath. Gastrointestinal: Denies: abdominal pain, changes in stool (decreased appetite). Genitourinary: Reports: no symptoms. Musculoskeletal: Reports: back pain. Skin: Reports: no symptoms. Neurological/Psychological: Reports: anxiety. Hematologic/Endocrine: Reports: no symptoms. Objective Last 24 Hrs of Vital Signs/I&O Vital Signs Date Time Temp Pulse Resp B/P Pulse O2 O2 Flow FiO2 Ox Delivery Rate 11/25 0625 97.4 92 18 118/76 95 Room Air / 0611 97.6 96 20 121/71 96 Room Air 03/ 0000 97.4 94 20 120/76 95 Room Air / 1504 98.8 95 20 111/61 93 Room Air Intake & Output 11/25 1600 11/25 0800 / 0000 Intake Total 240 120 Output Total 300 400 Balance -60 -280 Intake, Oral 240 120 Output, Urine 300 400 Patient 68.039 kg Weight Physical Exam General Appearance: Alert, Oriented X3, Cooperative, No Acute Distress Skin: No Breakdown, No Significant Lesion HEENT: Atraumatic, EOMI Neck: Supple, No JVD Cardiovascular: Regular Rate, Normal S1, Normal S2, No Murmurs Lungs: Clear to Auscultation, Normal Air Movement Abdomen: Soft, No Tenderness Neurological: Normal Speech, Normal Tone Extremities: No Edema, Normal Pulses Vascular: Pulses Symmetrical Current Medications: Current Medications Sig/Yessi Start time Last Medication Dose Route Stop Time Status Admin Calcium/Vitamin D 500 MG BID 11/20 2200 AC 11/25 PO 1011 Cholecalciferol 2,000 IU DAILY 03/03 1000 AC 11/25 PO 1011 Docusate Sodium 100 MG BID 11/20 2200 AC 11/25 PO 1012 Enoxaparin Sodium 40 MG DAILY 11/20 1000 AC 11/25 SC 1011 Fentanyl Citrate 100 MCG Q72H 11/24 1600 AC 11/24 TOP 2029 Fentanyl Citrate 25 MCG Q72H / 1600 AC 11/24 TOP 2030 Fentanyl Citrate 100 MCG Q72H 11/22 2200 DC 11/22 TOP 2150 Fluoxetine HCl 20 MG DAILY 11/20 1000 AC 11/24 PO 1038 Heparin Sodium 500 UNIT SEE ADMIN CRITERIA.. 11/22 0345 AC (Porcine) IV Hydromorphone HCl 4 MG Q4P PRN 11/25 0745 AC 11/25 PO 1004 Hydromorphone HCl 6 MG Q4 PRN 11/23 1515 DC 11/25 PO 0417 Ibuprofen 600 MG Q6P PRN 11/20 0030 AC 11/21 PO 0939 Lorazepam 0.5 MG Q4 HRS NEEDED PRN 11/20 1600 AC 11/24 PO 11/27 1559 2246 Ondansetron HCl 4 MG .STK-MED ONE 11/24 1249 DC IM 11/24 1250 Ondansetron HCl 4 MG TID PRN 11/20 1600 AC 11/24 PO 1254 Oxycodone HCl 30 MG Q4P PRN 11/25 0800 AC PO Polyethylene Glycol 17 GM DAILY 11/22 1015 AC 11/25 PO 1011 Last 24 Hrs of Lab/Daren Results Last 24 Hrs of Labs/Mics: Laboratory Tests 11/25/16 0550: CBC w Diff MAN DIFF ORDERED, RBC 3.05 L, MCV 85.5, MCH 28.8, RDW 18.0 H, MPV 6.9 L, Gran % 80.1 H, Lymphocytes % 6.7 L, Monocytes % 12.5 H, Eosinophils % 0.5, Basophils % 0.2, Absolute Granulocytes 2.6, Segmented Neutrophils 81 H, Band Neutrophils 4, Absolute Lymphocytes 0.2 L, Lymphocytes 2 L, Monocytes 10 H, Absolute Monocytes 0.4, Absolute Eosinophils 0, Absolute Basophils 0, Myelocytes 3 H, Platelet Estimate ADEQUATE, Polychromasia , Hypochromic- Microcytic 1+, Anisocytosis 1+, PUBS MCHC 33.7 Assessment/Plan Assessment: Patient is a 61 yo male with stage 4 hormone refractory prostate cancer ( diagnosed in 2007) with bone metastasis s/p radiotherapy currently on chemotherapy (mitoxantrene), chronic pain on opiates, history of anxiety and depression, chronic normocytic anemia, recently discharged from [facility] after being treated for severe diffuse bone pain, presented again to the [facility] with generalized pain and low-grade fever. Patient received radiotherapy 6 days ago after which he had intractable pain, he received Sumarium at [place] which increased his bone pain. He came to the ED as the pain was so severe that he could not move his body. Also reported low-grade fever with a maximum 100.4 at home associated with cough and thick phlegm. Patient was kept opn observation on the floor for the management of pain and work up for the fever. He is also found to be anemic (chronic anemia in the setting of his cancer, which have been worsened after receiving sumarium). Patient's status was changed to admitted to the general medicine floor yesterday on 11/24/16 due to intractable pain, nausea and poor oral intake, and to monitor H /H. Problem list and plan: Intractable generalized pain in the setting of metastatic prostate cancer: *We contacted the pain management office on 11/24/16 (Dr. Urszula Sweeney, [phone]. She advised us to go up on the fentanyl patch to 125 g Q72h and if still in pain increase it up to 150 g Q72. If the pain gets more controlled using fentanyl patch will decrease the PO dilaudid to 4 mg Q4-6 PRN. * continue Oxycodone 30 mg Q4P up from 20 mg Q6 * Continue fentanyl patch to 125 g from 100 g. * Ibuprofen for mild pain and IV Dilaudid for severe pain. * Hold narcotics in case of drowsiness or sedation. * Post discharge follow-up with his depilatory painter Acute on chronic normocytic anemia: * H&H on 11/22/2016: 8.8/26.0 * Stable since 11/21/16 * repeat CBC tomorrow am History of anxiety and depression: * continue home dose of po Fluoxetine and po ativan 0.5 mg PRN. Stage IV metastatic prostate cancer: Planned chemotherapy with Dr. Montilla. We'll plan to discharge the patient to rehabilitation and follow-up with Dr. Montilla for his scheduled treatment Fever, tachycardia - resolved chest x-ray findings consisting with atelectasis/pneumonia, patient does not report any coughing or shortness of breath. SaO2>92% in room air, Patient has remained afebrile during his stay * Continue to monitor Feeling of fullness in the ears - resolved Started today (11/25/16) when he got out of bed and walked. went away as he returned to bed. denies any discharge or pain. Ear exam with otoscope: right external ear canal is filled with cerumen, left external ear canal open and typmanic membrane and the osteos structures behind it are visible, not bulged and not erythematous. DVT prophylaxis is Lovenox Patient is DNR/DNI Problem List: 1. Anemia 2. Metastatic malignant neoplasm to prostate 3. Intractable pain Pain Ratin (2-10) Pain Location: Generalized, including back pain and pain in extremities Pain Goal: Pain 4 or less Pain Plan: Fentanyl patch, oxycodone, Dilaudid, ibuprofen Tomorrow's Labs & Rationales: CBC (anemia) WILFRED MILLS MD 11/25/16 1603: Attending MD Review Statement Attending Statement Attending MD Statement: examined this patient, discuss w/resident/PA/CLAY PUDDLER, agreed w/resident/PA/CLAY PUDDLER, discussed with family, reviewed EMR data (avail), discussed with nursing, discussed with case mgmt, amended to note Attending Assessment/Plan: The patient was seen and discussed with house staff. Agree with the plan of care as outlined. OK to discharge to short term rehab today.
[2016-11-25] MEDS ORDERED: FENTANYL1 EAC2 TOP (07:46)
[2016-11-25] MEDS ORDERED: OXYCODONE HCL30 M1 PO (07:51)
--- NOTE | 2016-11-25 07:52 | NUR ---
Physical Therapy: Consult received and chart reviewed. Pt is ambulating independently. Acute skilled PT is not indicated. Will not follow. Thank you.
[2016-11-25] MEDS ORDERED: DILAUDID4 M1 PO (07:53)
[2016-11-25 08:49] LABS: ABSOLUTE BASOPHIL COUNT 0 /CUMM (0.0-0.2); ABSOLUTE EOSINOPHIL COUNT 0 /CUMM (0.0-0.7); ABSOLUTE GRANULOCYTE CT 2.6 /CUMM (1.4-6.5); ABSOLUTE LYMPH COUNT 0.2 /CUMM (1.2-3.4); ABSOLUTE MONOCYTE COUNT 0.4 /CUMM (0.10-0.60); BASOPHIL % 0.2 % (0.0-2.0); EOSINOPHIL % 0.5 % (0-5); GRANULOCYTE % 80.1 % (42.2-75.2); MEAN CORPUSCULAR HGB 28.8 PG (27.0-31.0); MEAN CORPUSCULAR HGB CONC 33.7 G/DL (33.0-37.0); MEAN CORPUSCULAR VOLUME 85.5 FL (80.0-94.0); MEAN PLATELET VOLUME 6.9 FL (7.4-10.4); PLATELET COUNT 310 /CUMM (130-400); RED BLOOD CELL CT 3.05 /CUMM (4.70-6.10); WHITE BLOOD CELL COUNT 3.2 /CUMM (4.8-10.8)
[2016-11-25] MEDS ORDERED: TROLAMINE OTIC (14:30)
[2016-11-25] MEDS ORDERED: FLONASE ALLERG9.9 ML NASB (14:32)
[2016-11-25 14:37] VITALS: BP 114/69
[2016-11-25 15:18] VITALS: BP 114/69
== END 2016-11-25 15:50 | DRG 723 ==
LOC: ENRESERVDT → ENRESERVTM → ERH 19:29 → ERHI 23:06 → 2NB 23:06 → ERHI 23:06 → ENPENDDIS 23:06 → DELPENDDIS 23:06 → 2NB 11-20 03:26 → ENPENDDIS 11-24 15:38 → 2NB 11-25 08:19
PROVIDERS: Emergency Medicine; Ophthalmology; Student in an Organized Health Care Education/Training Program; ADMIT Internal Medicine
PROC: 30233N1 Transfusion of Nonautologous Red Blood Cells into Peripheral Vein, Percutaneous Approach (ICD-10-PCS; principal; 2016-11-24)
DX: C61 Malignant neoplasm of prostate (principal); C79.51 Secondary malignant neoplasm of bone; D63.0 Anemia in neoplastic disease; F32.9 Major depressive disorder, single episode, unspecified; Z87.891 Personal history of nicotine dependence; R50.9 Fever, unspecified
CPT/HCPCS: 2NBP; 6040; 36415; 81001; 82436; 86920; 87040; 87070; 87086; 87804; 87804-59; 93005; 93010; 96361; 96374; 96375; G0378; J1170; J1642; J1650; J2405; J2930; J3101; P9016

== ENCOUNTER 2016-12-16 12:36 | Observation (INO) | payer OTHER, MEDICARE ==
[~2016-12-16] VITALS: Ht 162.6 cm; Wt 68.9 kg
[~2016-12-16 12:36] MED LIST changes: +DILAUDID4 M1 PO; +FLONASE ALLERG9.9 ML NASB; +OXYCODONE HCL30 M1 PO; +TROLAMINE OTIC
--- NOTE | 2016-12-16 12:43 | NUR ---
PT TO ED, SENT BY DR RAMIREZ FOR BLOOD TRANSFUSION. PT NEEDS 3 UNITS OF BLOOD. PT VERY PALE, C/O WEAKNESS AND FEELING COLD. PT TAKEN TO ROOM 20 VIA W/C WITH . PT HAS H/O PROSTATE CA WITH BONE METS.
--- NOTE | 2016-12-16 12:57 | NUR ---
RECIEVED TO ROOM 20. PT ASSISTED TO BED. ALERT, ORIENTED. PALE. AT BEDSIDE
--- NOTE | 2016-12-16 13:11 | ED GENERAL ADULT ---
History of Present Illness General Chief Complaint: General Adult Stated Complaint: BLOOD TRANSFUSION, SENT BY DR GREGG Source: patient, family, old records Exam Limitations: no limitations Vital Signs & Intake/Output Vital Signs & Intake/Output Vital Signs Date Time Temp Pulse Resp B/P Pulse O2 O2 Flow FiO2 Ox Delivery Rate 12/16 1631 98.2 103 19 112/66 93 12/16 1545 96.8 97 16 104/55 99 Room Air 12/16 1334 Room Air 12/16 1242 98.7 105 20 108/70 97 Room Air Allergies Coded Allergies: clams (Intermediate, UNKNOWN REACTION TO RAW CLAMS 09/04/16) Triage Note: PT TO ED, SENT BY DR GREGG FOR BLOOD TRANSFUSION. PT NEEDS 3 UNITS OF BLOOD. PT VERY PALE, C/O WEAKNESS AND FEELING COLD. PT TAKEN TO ROOM 20 VIA W/C WITH . PT HAS H/O PROSTATE CA WITH BONE METS. Triage Nurses Notes Reviewed? yes Onset: Gradual Duration: day(s): (1-2), constant Timing: recent history Injury Environment: home Severity: moderate Severity Numbers: 6 No Modifying Factors: none Associated Symptoms: lightheaded, anxiety HPI: 7-year-old male with history of metastatic prostate cancer to the bones presents emergency room for evaluation sent in by his oncologist Dr. gregg for 3 units of blood. The patient has been feeling lightheaded and weak for the past 3 days and very pale. He denies any black or bloody stools or the patient reports of dry heaves which is normal for him no hematemesis no cough hemoptysis no fever no chills no chest pain. The patient's last transfusion was in September 2016 He was recently treated with Samarium which helped for his pain The onset of the symptoms were abrupt, the duration has been approximately 48 hours, the severity is significant as his symptoms required him to come to the emergency department for care (XIN QUINTANILLA) Reconcile Medications Calcium Carbonate/Vitamin D3 (Caltrate 600 + D Tablet) 1 EACH TABLET 1 TAB PO BID SUPPLEMENT (Reported) Cholecalciferol (Vitamin D3) 1,000 UNIT TABLET 2 TAB PO DAILY SUPPLEMENT ( Reported) Docusate Sodium (Colace) 100 MG CAPSULE 1 CAP PO BID STOOL SOFTENER (Reported ) Fentanyl 50 MCG/HOUR PATCH.TD72 1 PAT TOP Q3D pain (Reported) Fentanyl 100 MCG/HOUR PATCH.TD72 1 PAT TOP Q3D pain Fluoxetine HCl (Prozac) 40 MG CAPSULE 1 CAP PO DAILY depression (Reported) Fluticasone Propionate (Flonase Allergy Relief) 50 MCG/ACTUATION SPRAY.SUSP 1 PUFF NASB DAILY PRN Hearing change Hydromorphone HCl (Dilaudid) 4 MG TABLET 1 TAB PO Q4-6 PRN Severe pain Lorazepam 0.5 MG TABLET 1 TAB PO Q4 HRS NEEDED ANXIETY (Reported) Ondansetron (Zofran Odt) 4 MG TAB.RAPDIS 1 TAB SL TID PRN NAUSEA/VOMITING ( Reported) Polyethylene Glycol 3350 (Miralax) 17 GM POWD.PACK 1 PAC PO DAILY CONSTIPATION (Reported) dissolve in water Triethanolamine (Trolamine) 100 % SOLUTION 1 DROP OTIC DAILY cerumen impaction (TARSHA WHITE DO) Past History Travel History Traveled to [place] past 21 day No Medical History Any Pertinent Medical History? see below for history Neurological: NONE EENT: NONE Cardiovascular: NONE Respiratory: NONE Gastrointestinal: CONSTIPATION Hepatic: NONE Renal: NONE Musculoskeletal: ARTHRITIS METASTATIC CA TO BONE Psychiatric: NONE Endocrine: NONE Blood Disorders: NONE Cancer(s): METASTATIC PROSTATE CA BONE CA History of MRSA: No History of VRE: No History of CDIFF: No Surgical History Surgical History: non-contributory Psychosocial History Who do you live with Family Services at Home None What is your primary language Ugandan Tobacco Use: Quit >30 days ago ETOH Use: denies use Illicit Drug Use: denies illicit drug use Family History Family History, If Any: MOTHER (Diabetes mellitus). SISTER (Breast cancer). Hx Contributory? No (XIN QUINTANILLA) Review of Systems Review of Systems Constitutional: Reports: see HPI. All Other Systems: Reviewed and Negative Comments Review of systems: See HPI, All other systems negative. Constitutional, no chills no fever, no malaise HEENT: No visual changes no sore throat no congestion Cardiovascular: No chest pain , no palpitation Skin,no rashes, no change in skin Respiratory: No dyspnea no cough no sputum GI: No nausea no vomiting, no diarrhea, : No dysuria Muscle skeletal: No joint pain, no back pain, no neck pain, Neurologic: no headache Psych: stress (+) anxiety Heme/endocrine: No bruising no bleeding Immunology: No lymphadenopathy (XIN QUINTANILLA) Physical Exam Physical Exam General Appearance: well developed/nourished, no apparent distress, alert, awake Comments: HEENT: Normal EENT exam; PERRL, EOMI, HEAD is atraumatic. moist mucous membranes. Neck: Supple, normal range of motion Back: Nontender,. Full range of motion Cardiovascular: Regular rate and rhythms no murmurs Respiratory: No respiratory distress. Patient speaking in full complete sentences. Breath sounds clear to auscultation bilaterally: NO W/R/R Abdomen: Soft, nontender nondistended, no appreciable organomegaly. Normal bowel sounds. No rebound/guarding, Extremity: No edema, full range of motion of extremities Neuro: Alert oriented x3, motor sensory normal, There were no obvious focal neurologic abnormalities. Skin: pale, No appreciable rash on exposed skin, skin is warm and dry. Psych: Mood and affect is normal, memory and judgment is normal. Core Measures ACS in differential dx? No CVA/TIA Diagnosis: No Severe Sepsis Present: No Septic Shock Present: No (XIN QUINTANILLA) Progress Differential Diagnoses I considered the following diagnoses in my evaluation of the patient: anemia, dehydration, gibleed Plan of Care: Orders Procedure Date/time Status Regular Diet 12/17 B Active CBC WITHOUT DIFFERENTIAL 12/17 0600 Active BASIC ELECTROLYTES PLUS BUN&CR 12/17 0600 Active Heart Healthy Diet 12/16 D Complete BLOOD PRODUCT PICKUP 12/16 2000 Active Pathway - chart 12/16 1757 Active House Staff 12/16 1757 Active Patient Data 12/16 1757 Active Code Status 12/16 1757 Active Vital Signs 12/16 1732 Active Teach/Educate 12/16 1732 Active Pain Treatment and Response 12/16 1732 Active Nutritional Intake, Monitor 12/16 1732 Active Isolation 12/16 1732 Active Intake & Output 12/16 1732 Active Patient Care Conference 12/16 1732 Active Activity/Ambulation 12/16 1732 Active BLOOD PRODUCT PICKUP 12/16 1643 Active BLOOD PRODUCT PICKUP 12/16 1350 Active Intake & Output 12/16 1334 Active Patient Data 12/[address] in observation 12/16 1316 Active ED Holding Orders 12/16 1316 Active Vital Signs 12/16 1316 Active LEUKOCYTE POOR (PACKED CELLS) 12/16 1311 Active CBC WITHOUT DIFFERENTIAL 12/16 1301 Complete TYPE & SCREEN (NOT X-MATCH) 12/16 1301 Active VTE Mechanical Prophylaxis 12/16 UNK Active Current Medications Sig/Yessi Start time Last Medication Dose Stop Time Status Admin Fluoxetine HCl 40 MG DAILY 12/17 1000 AC (Prozac) Fentanyl Citrate 150 MCG Q3D 12/16 1800 AC (Duragesic) Hydromorphone HCl 4 MG Q4-6 PRN PRN 12/16 1800 AC (Dilaudid) Lorazepam 0.5 MG Q4 HRS NEEDED PRN 12/16 1800 AC (Ativan) 12/23 1759 Lidocaine 1 PAT DAILY 12/16 1745 AC (Lidoderm) Laboratory Tests 12/16/16 1325: CBC w Diff NO MAN DIFF REQ, RBC 1.70 L, MCV 84.9, MCH 28.6, RDW 19.1 H, MPV 6.9 L, Gran % 73.3, Lymphocytes % 16.7 L, Monocytes % 9.8 H, Eosinophils % 0, Basophils % 0.2, Absolute Granulocytes 2.3, Absolute Lymphocytes 0.5 L, Absolute Monocytes 0.3, Absolute Eosinophils 0, Absolute Basophils 0, PUBS MCHC 33.7 Labs ordered old records reviewed case discussed with Dr. white who spoke with dr gregg pt is to receive 3 units prbc, will place in obs case d/w dr ladd will place in obs (XIN QUINTANILLA) Initial ED EKG: none (XIN QUINTANILLA) Departure Departure Time of Disposition: 1313 Disposition: HOME OR SELF CARE Condition: Stable Clinical Impression Primary Impression: Symptomatic anemia Referrals: SARAH ABRAHAM,PATRICE Lopez (PCP/Family) Departure Forms: Customer Survey General Discharge Information Observation Note Spoke With: ELIZABETH LADD MD Physician Advisor Notified: TARSHA WHITE DO Place Patient In: Non-ED OBS Care Area Rationale for Observation: My rational for observation is as follows [address] gregg who spoke with dr white, premature discharge would be medically harmful. (XIN QUINTANILLA) Observation Note Rationale for Observation: My rational for observation is as follows . PA/MIRROR MACHINE FEEDER Co-Sign Statement Statement: ED Attending supervision documentation- [x] I saw and evaluated the patient. I have also reviewed all the pertinent lab results and diagnostic results. I agree with the findings and the plan of care as documented in the PA's/MIRROR MACHINE FEEDER's documentation. [x] I have reviewed the ED Record and agree with the PA's/MIRROR MACHINE FEEDER's documentation. [] Additions or exceptions (if any) to the PAs/MIRROR MACHINE FEEDER's note and plan are summarized below: [] (CHRISTOPHER KOCH,TARHSA Robles) Critical Care Note Critical Care Note Critical Care Time: non-applicable (BARB LIM,XIN)
--- NOTE | 2016-12-16 13:15 | NUR ---
SEEN BY XIN LIM. PT COMPLAINING OF ANXIETY AND CLAUSTROPHOBIA. PACING IN HALLS
[2016-12-16 13:30] LABS: ABSOLUTE BASOPHIL COUNT 0 /CUMM (0.0-0.2); ABSOLUTE EOSINOPHIL COUNT 0 /CUMM (0.0-0.7); ABSOLUTE LYMPH COUNT 0.5 /CUMM (1.2-3.4); ABSOLUTE MONOCYTE COUNT 0.3 /CUMM (0.10-0.60); BASOPHIL % 0.2 % (0.0-2.0)
[2016-12-16 13:33] LABS: ABSOLUTE GRANULOCYTE CT 2.3 /CUMM (1.4-6.5); EOSINOPHIL % 0 % (0-5); GRANULOCYTE % 73.3 % (42.2-75.2); MEAN CORPUSCULAR HGB 28.6 PG (27.0-31.0); MEAN CORPUSCULAR HGB CONC 33.7 G/DL (33.0-37.0); MEAN CORPUSCULAR VOLUME 84.9 FL (80.0-94.0); MEAN PLATELET VOLUME 6.9 FL (7.4-10.4); PLATELET COUNT 187 /CUMM (130-400); RBC DISTRIBUTION WIDTH 19.1 % (11.5-14.5); WHITE BLOOD CELL COUNT 3.2 /CUMM (4.8-10.8)
--- NOTE | 2016-12-16 13:33 | NUR ---
PORT A CATH ACCESSED WITHOUT DIFFICULTY. POSITIVE BLOOD RETURN NOTED UPON INSERTION. LABS DRAWN OFF OF PORT A CATH AND SENT TO LAB. PT MEDICATED WITH ATIVAN.5MG. PT RESTING ON STRETCHER WITH EYES CLOSED
[2016-12-16 13:36] LABS: HEMATOCRIT 14.4 % (42-52)
--- NOTE | 2016-12-16 13:51 | NUR ---
HOUSE STAFF PAGED AT 010 TO REPORT HGB OF 4.0
--- NOTE | 2016-12-16 13:51 | NUR ---
PT SITTING UP IN CHAIR.
--- NOTE | 2016-12-16 14:00 | NUR ---
CRITICAL TEST RESULTS [id number] RACQUEL RAO 61 M TESTS AND RESULTS: HGB 4.9, HCT 14.4 Results received and read back by: YURIY JARRETT Results received date and time: 12/16/16 1401 The following provider was notified of the results, and read the results back: DR SMITH Notified date and time: 12/16/16 at 1401
--- NOTE | 2016-12-16 14:31 | NUR ---
bed 212
--- NOTE | 2016-12-16 14:55 | NUR ---
FIRST UNIT OF PRBC STARTED
--- NOTE | 2016-12-16 15:43 | NUR ---
REPORT CALLED TO [facility]I ON [facility] [address]
--- NOTE | 2016-12-16 16:10 | History & Physical ---
FAVIO ABRAHAM,VIDHI 12/16/16 1610: General Information and HPI History of Present Illness: This is a 61-year-old gentleman with a past medical history of metastatic castrate resistant prostate cancer (s/p radiotherapy , mitoraxone and samarian therapy in 10/2016), and anxiety, presents after being sent in by his oncologist for treatment of low H&H. Pt Reports recent history of fatigue and was reported to have had a pale appearance. He does however deny any acute bleeding including bright red blood per rectum, melena, hematemesis or hemoptysis. He also denies any chest pain, palpitation, or shortness of breath. She also denies any recent fevers, chills, sick contacts, cough, nausea, vomiting ,recent travel, dizziness, focal neurological deficit, vision changes, abdominal pain or dysuria. Allergies/Medications Allergies: Coded Allergies: clams (Intermediate, UNKNOWN REACTION TO [facility] 09/04/16) Home Med list Calcium Carbonate/Vitamin D3 (Caltrate 600 + D Tablet) 1 EACH TABLET 1 TAB PO BID SUPPLEMENT (Reported) Cholecalciferol (Vitamin D3) 1,000 UNIT TABLET 2 TAB PO DAILY SUPPLEMENT ( Reported) Docusate Sodium (Colace) 100 MG CAPSULE 1 CAP PO BID STOOL SOFTENER (Reported ) Fentanyl 50 MCG/HOUR PATCH.TD72 1 PAT TOP Q3D pain (Reported) Fentanyl 100 MCG/HOUR PATCH.TD72 1 PAT TOP Q3D pain Fluoxetine HCl (Prozac) 40 MG CAPSULE 1 CAP PO DAILY depression (Reported) Fluticasone Propionate (Flonase Allergy Relief) 50 MCG/ACTUATION SPRAY.SUSP 1 PUFF NASB DAILY PRN Hearing change Hydromorphone HCl (Dilaudid) 4 MG TABLET 1 TAB PO Q4-6 PRN Severe pain Lorazepam 0.5 MG TABLET 1 TAB PO Q4 HRS NEEDED ANXIETY (Reported) Ondansetron (Zofran Odt) 4 MG TAB.RAPDIS 1 TAB SL TID PRN NAUSEA/VOMITING ( Reported) Polyethylene Glycol 3350 (Miralax) 17 GM POWD.PACK 1 PAC PO DAILY CONSTIPATION (Reported) dissolve in water Triethanolamine (Trolamine) 100 % SOLUTION 1 DROP OTIC DAILY cerumen impaction Past History Travel History Traveled to [place] past 21 day No Medical History Neurological: NONE EENT: NONE Cardiovascular: NONE Respiratory: NONE Gastrointestinal: CONSTIPATION Hepatic: NONE Renal: NONE Musculoskeletal: ARTHRITIS METASTATIC CA TO BONE Psychiatric: NONE Endocrine: NONE Blood Disorders: NONE Cancer(s): METASTATIC PROSTATE CA BONE CA History of MRSA: No History of VRE: No History of CDIFF: No Surgical History Surgical History: non-contributory Past Family/Social History Family History Relations & Conditions if any MOTHER (Diabetes mellitus). SISTER (Breast cancer). Psychosocial History Who Do You Live With? spouse Services at Home: None ETOH Use: denies use Illicit Drug Use: denies illicit drug use Living Will? yes Review of Systems Review of Systems Constitutional: Reports: see HPI. EENTM: Reports: no symptoms. Cardiovascular: Reports: no symptoms. Respiratory: Reports: no symptoms. GI: Reports: no symptoms. Genitourinary: Reports: no symptoms. Musculoskeletal: Reports: no symptoms. Skin: Reports: no symptoms. Neurological/Psychological: Reports: no symptoms. Hematologic/Endocrine: Reports: no symptoms. Immunologic/Allergic: Reports: no symptoms. All Other Systems: Reviewed and Negative Exam & Diagnostic Data Last 24 Hrs of Vital Signs/I&O Vital Signs Date Time Temp Pulse Resp B/P Pulse O2 O2 Flow FiO2 Ox Delivery Rate 12/16 2136 98.2 94 18 124/74 96 Room Air 12/16 1631 98.2 103 19 112/66 93 12/16 1545 96.8 97 16 104/55 99 Room Air 12/16 1334 Room Air 12/16 1242 98.7 105 20 108/70 97 Room Air Intake & Output 12/17 0800 12/17 0000 12/16 1600 Intake Total 350 Output Total Balance 350 Intake, Oral 350 Patient 68.946 kg 68.946 kg Weight Physical Exam General Appearance Alert, Oriented X3, Cooperative Skin No Significant Lesion HEENT Atraumatic, PERRLA, Mucous Membr. moist/pink Neck Supple, No JVD Lymphatic Cervical nl Cardiovascular Regular Rate, Normal S1, Normal S2 Lungs Normal Air Movement Abdomen Normal Bowel Sounds, Soft, No Tenderness Neurological Normal Gait, Normal Speech, Sensation Intact Extremities No Edema, Normal Pulses, No Tenderness/Swelling Vascular Pulses Symmetrical Assessment/Plan Assessment: This is a 61-year-old gentleman with a history of metastatic castrate resistant prostate cancer with recent samarium therapy for his intractable low back pain and currently on no radiation or chemotherapy presents for treatment and evaluation of low hemoglobin and hematocrit. Impression and plan Acute anemia H/H 4.9/14.4. Pt is not endorsing any acute complaints of bleeding including GI symptoms. Was probable etiology of patient's anemia is secondary to recent chemotherapy. Patient is admitted as an observation with a plan of transfusing 3 units of PRBC. We'll obtain CBC tomorrow morning and most likely discharge tomorrow. #History of metastases with intractable back pain She reports since summer and therapy is experiencing marketed improvement with his back pain. Plan Continue current pain regimen of fentanyl 150 g and Dilaudid 4 mg every 4 as needed for pain #History of anxiety Will continue home Ativan regimen. As Ranked By This Provider Problem List: 1. Anemia Core Measures/Miscellaneous Acute Coronary Syndrome ACS Diagnosis: No Cerebrovascular Accident CVA/TIA Diagnosis: No Congestive Heart Failure CHF Diagnosis: No Venous Thromboembolism VTE Risk Factors: Age > 40, Cancer/chemo/oth therapy No Mech VTE prophylaxis d/t: No contraindications No VTE Pharm Prophylaxis d/t: No contraindications VTE Diagnosis: No VTE Type: NONE VTE Confirmed by (Test): NONE Severe Sepsis Severe Sepsis Present: No Septic Shock Septic Shock Present: No Miscellaneous Documentation Attending Case Discussed With: MARKY GENAO MD Primary Care Physician: PATRICE SMITH MD Patient sees these Specialists Oncology Level of Patient Care: General Medicine MARKY GENAO MD 12/16/16 1623: Attending MD Review Statement Attending Statement Attending Statement: examined this patient, discuss w/resident/PA/ROUTE SALES ASSOCIATE, agreed w/resident/PA/R[employer] SALES ASSOCIATE, reviewed EMR data (avail), discussed with nursing, amended to note Attending Assessment/Plan: 61-year-old male with past medical history significant for metastatic prostate cancer with metastases to bone status post radiation therapy, on mitoraxone, received samarium treatment who was sent in from Dr. Montilla's office secondary to having very low blood counts. Patient went to see Dr. Montilla. He has been feeling fatigued and tired from last few days. He looks pale. He claims that his bone pain is improved after samarium treatment. He is on pain management. He currently denies any melanotic stools, bright red blood per rectum. No history of any nausea vomiting. No history of any shortness of breath. Vital Signs Date Time Temp Pulse Resp B/P Pulse O2 O2 Flow FiO2 Ox Delivery Rate 12/16 1545 96.8 97 16 104/55 99 Room Air 12/16 1334 Room Air 12/16 1242 98.7 105 20 108/70 97 Room Air on exam; aox3, nad. looks pale. cv; s1,s2, rrr resp; clear abd; soft, nt, bs+ ext; no edema. Laboratory Tests 12/16 1325 Hematology CBC w Diff NO MAN DIFF REQ WBC (4.8 - 10.8 /CUMM) 3.2 L RBC (4.70 - 6.10 /CUMM) 1.70 L Hgb (14.0 - 18.0 G/DL) 4.9 *L Hct (42 - 52 %) 14.4 *L MCV (80.0 - 94.0 FL) 84.9 MCH (27.0 - 31.0 PG) 28.6 RDW (11.5 - 14.5 %) 19.1 H Plt Count (130 - 400 /CUMM) 187 MPV (7.4 - 10.4 FL) 6.9 L Gran % (42.2 - 75.2 %) 73.3 Lymphocytes % (20.5 - 51.1 %) 16.7 L Monocytes % (1.7 - 9.3 %) 9.8 H Eosinophils % (0 - 5 %) 0 Basophils % (0.0 - 2.0 %) 0.2 Absolute Granulocytes (1.4 - 6.5 /CUMM) 2.3 Absolute Lymphocytes (1.2 - 3.4 /CUMM) 0.5 L Absolute Monocytes (0.10 - 0.60 /CUMM) 0.3 Absolute Eosinophils (0.0 - 0.7 /CUMM) 0 Absolute Basophils (0.0 - 0.2 /CUMM) 0 PUBS MCHC (33.0 - 37.0 G/DL) 33.7 A/P: 61-year-old male with past medical history significant for metastatic prostate cancer with metastases to bone status post radiation therapy, on mitoraxone, received samarium treatment who is now coming in on the general medicine floor as an observation for blood transfusion secondary to acute on chronic anemia from his malignancy. Patient will be placed on general medicine floor. He will be transfused 3 units of RBCs. Please check CBCs the morning. Please confirm home medications especially the pain medications and continue them. Please check stools for guaiac. DVT Px; ALPS. Please confirm code status. GERALD SMITH 12/16/162020: Resident Review Statement Resident Statement: discussed with public health internship Other Findings: Detailed HPI as above Assessment and plan He is 61-year-old man with past medical history of hormone resistant prostate cancer with bony metastasis status post chemotherapy (mitoxantrone) and radiotherapy, was started on samarium by radiation oncologist on November 14, history of chronic normocytic anemia and chronic pain on opiates was sent in by Dr. Montilla after he was found out to have a low hemoglobin. He was also complaining of generalized weakness, feeling cold and lightheadedness. Upon admission his H&H was found to be 4.9/14.4. 3 units of blood transfusions were ordered in ER. According to patient his pain is well controlled. He visited his rug touch up painter Dr. Urszula Sweeney, on Thursday who made some changes in his pain medications and that regimen is working good for him. He denies any melena, bright red blood per rectum or bleeding from anywhere else. Plan We will admit patient to general medicine floor for acute on chronic anemia. He is going to be transfused with 3 units of blood. We will check CBC after transfusions. His pain medications were confirmed from his and he was started on same pain regimen. All of his other home medications have been restarted. Pain management pathway. Regular diet. Alps for DVT prophylaxis. DNR/DNI
[2016-12-16 16:31] VITALS: BP 112/66
--- NOTE | 2016-12-16 16:48 | NUR ---
PATIENT ARRIVED TO FLOOR AT 1631. PATIENT ALERT AND ORIENTED, PALE BUT DENIES ANY PAIN. PATIENT RECEIVED ONE UNIT OF BLOOD IN THE ED. VITALS STABLE. PATIENT AMBULATING INDEPEDENTLY. AT BEDSIDE. CALL CRUZ IN REACH.
[2016-12-16] MEDS ORDERED: PROZAC40 M1 PO (17:03)
[2016-12-16] MEDS ORDERED: FENTANYL1 EAC3 TOP (17:03)
[2016-12-16 21:36] VITALS: BP 124/74
[2016-12-17 07:32] VITALS: BP 138/74
[2016-12-17 08:09] LABS: ABSOLUTE BASOPHIL COUNT 0 /CUMM (0.0-0.2); ABSOLUTE EOSINOPHIL COUNT 0 /CUMM (0.0-0.7); ABSOLUTE GRANULOCYTE CT 2.7 /CUMM (1.4-6.5); ABSOLUTE LYMPH COUNT 0.5 /CUMM (1.2-3.4); ABSOLUTE MONOCYTE COUNT 0.4 /CUMM (0.10-0.60); BASOPHIL % 0.6 % (0.0-2.0); EOSINOPHIL % 1.4 % (0-5); GRANULOCYTE % 73.7 % (42.2-75.2); MEAN CORPUSCULAR HGB 29.4 PG (27.0-31.0); MEAN CORPUSCULAR HGB CONC 33.8 G/DL (33.0-37.0); MEAN PLATELET VOLUME 6.9 FL (7.4-10.4); PLATELET COUNT 164 /CUMM (130-400); RBC DISTRIBUTION WIDTH 17.4 % (11.5-14.5); WHITE BLOOD CELL COUNT 3.7 /CUMM (4.8-10.8)
[2016-12-17 08:35] LABS: HEMATOCRIT 21.7 % (42-52)
--- NOTE | 2016-12-17 11:03 | Patient Discharge Instructions ---
Discharge Instructions General Discharge Information You were seen/treated for: Anemia Watch for these problems: Any acute bleeding rectally, in stool, or in vomit Please follow up with Dr Aguilar within 1 week Please follow up with your primary care within 1 week Diet Continue normal diet: Yes Acute Coronary Syndrome Inclusion Criteria At DC or during hospital stay patient has or had the following: ACS DIAGNOSIS No Discharge Core Measures Meds if any: Prescribed or Continued at Discharge Meds if any: NOT Prescribed or Continued at Discharge Congestive Heart Failure Inclusion Criteria At DC or during hospital stay patient has or had the following: CHF DIAGNOSIS No Discharge Core Measures Meds if any: Prescribed or Continued at Discharge Meds if any: NOT Prescribed or Continued at Discharge Cerebrovascular accident Inclusion Criteria At DC or during hospital stay patient has or had the following: CVA/TIA Diagnosis No Discharge Core Measures Meds if any: Prescribed or Continued at Discharge Meds if any: NOT Prescribed or Continued at Discharge Venous thromboembolism Inclusion Criteria VTE Diagnosis No VTE Type NONE VTE Confirmed by (Test) NONE Discharge Core Measures - Per Current guidelines, there needs to be overlap - treatment for the first 5 days of Warfarin therapy. - If discharged on Warfarin prior to 5 days of - overlap therapy, the patient will need to be - assessed for post discharge needs including - *Post discharge parental anticoagulation - *Warfarin and/or parental anticoagulation education - *Follow up date to check INR post discharge At least 5 days overlap therapy as Inpatient No Meds if any: Prescribed or Continued at Discharge Note: Overlap Therapy is Warfarin and Anticoagulant Meds if any: NOT Prescribed or Continued at Discharge
--- NOTE | 2016-12-17 11:07 | PN- Housestaff ---
Subjective Follow-up For: Anemia (acute) Subjective: Patient is seen and examined at bedside. Patient does not endorse any acute complaints including chest pain, palpitation, shortness of breath, fever, nausea , vomiting, abdominal pain or dysuria. He is eager for discharge. That is post 3 units of PRBC no acute overnight event reported by nursing staff. Review of Systems Constitutional: Reports: no symptoms. Objective Last 24 Hrs of Vital Signs/I&O Vital Signs Date Time Temp Pulse Resp B/P Pulse O2 O2 Flow FiO2 Ox Delivery Rate 12/17 0732 98.6 94 18 138/74 96 Room Air 12/16 2136 98.2 94 18 124/74 96 Room Air 12/16 1631 98.2 103 19 112/66 93 12/16 1545 96.8 97 16 104/55 99 Room Air Intake & Output 12/17 1600 12/17 0800 12/17 0000 Intake Total 260 350 Output Total Balance 260 350 Intake, IV 20 Intake, Oral 240 350 Patient 68.946 kg Weight Physical Exam General Appearance: Alert, Oriented X3, Cooperative Skin: No Significant Lesion HEENT: Atraumatic, Mucous Membr. moist/pink Cardiovascular: Regular Rate, Normal S1, Normal S2 Lungs: Clear to Auscultation, Normal Air Movement Abdomen: Normal Bowel Sounds, Soft, No Tenderness, No Hepatospenomegaly Assessment/Plan Assessment: This is a 61-year-old gentleman with a history of metastatic castrate resistant prostate cancer presents for treatment of low hemoglobin after being sent in by his oncologist. Assessment and plan Hemoglobin on presentation was 4.9 and hematocrit was 14.4. It is post 3 units of PRBC with follow-up CBC in the morning to being 7.3 and Hct 21.7. Pt is stable for discharge with follow up instruction with Dr Aguilar. Problem List: 1. Anemia Pain Ratin Pain Location: LOWER BACK Pain Goal: Remain pain free Pain Plan: per patient home regimen Tomorrow's Labs & Rationales: none-discharge
--- NOTE | 2016-12-17 11:11 | NUR ---
0830: LATE ENTRY CRITICAL VALUE HGB:7.3 AND HCT: 21.7 MD STAHL AWARE. NNO AT THIS TIME.
--- NOTE | 2016-12-17 13:01 | PN- Att Addend ---
Attending Addendum Attending Brief Note Patient seen and examined, overall feels well. Received 3 units of RBC transfusion in H&H has improved to his baseline. Vital signs remained stable. No medication changes were made. Patient is medically stable for discharge home on his home medications and will follow per Dr. Montilla as well as his pain management doctor as an outpatient.
== END 2016-12-17 13:05 | disposition home health service (06) ==
LOC: ENRESERVDT → ENRESERVTM → ERH 12:36 → ERHI 13:16 → ENPENDDIS 13:16 → 2NB 13:16
PROVIDERS: Internal Medicine; Physician Assistant Medical; ADMIT Hospitalist
DX: C61 Malignant neoplasm of prostate (principal); D63.0 Anemia in neoplastic disease; C79.51 Secondary malignant neoplasm of bone; F41.9 Anxiety disorder, unspecified
CPT/HCPCS: 6040; 82436; 86920; 96374; 99291; G0378; P9016

== ENCOUNTER 2017-01-03 18:30 | Emergency (ER) | payer OTHER, MEDICARE ==
[~2017-01-03] VITALS: Ht 165.1 cm; Wt 63.5 kg
[~2017-01-03 18:30] MED LIST changes: +PROZAC40 M1 PO
--- NOTE | 2017-01-03 18:50 | ED GENERAL ADULT ---
History of Present Illness General Chief Complaint: General Adult Stated Complaint: SEVERE PAIN PER Source: patient, family, old records, PCP Exam Limitations: no limitations Vital Signs & Intake/Output Vital Signs & Intake/Output Vital Signs Date Time Temp Pulse Resp B/P Pulse O2 O2 Flow FiO2 Ox Delivery Rate 01/03 2103 98.9 95 18 117/60 98 Room Air 01/03 1923 85 16 129/72 99 Room Air 01/03 1908 Room Air 01/03 1836 97.0 106 18 117/79 95 Room Air Allergies Coded Allergies: clams (Intermediate, UNKNOWN REACTION TO [facility] 09/04/16) Reconcile Medications Calcium Carbonate/Vitamin D3 (Caltrate 600 + D Tablet) 1 EACH TABLET 1 TAB PO BID SUPPLEMENT (Reported) Cholecalciferol (Vitamin D3) 1,000 UNIT TABLET 2 TAB PO DAILY SUPPLEMENT ( Reported) Docusate Sodium (Colace) 100 MG CAPSULE 1 CAP PO BID STOOL SOFTENER (Reported ) Fentanyl 75 MCG/HOUR PATCH.TD72 2 PAT TOP Q3D PAIN (Reported) Fluoxetine HCl (Prozac) 40 MG CAPSULE 1 CAP PO DAILY depression (Reported) Hydromorphone HCl (Dilaudid) 4 MG TABLET 1 TAB PO Q4H PRN PAIN (Reported) Lorazepam 0.5 MG TABLET 1 TAB PO Q4 HRS NEEDED ANXIETY (Reported) Meloxicam 15 MG TABLET 1 TAB PO 0830 PAIN/INFLAMMATION (Reported) Mirtazapine (Remeron) 15 MG TABLET 1 TAB PO QHS APPETITE/MOOD/SLEEP (Reported ) Moxifloxacin HCl (Avelox) 400 MG TABLET 1 TAB PO DAILY pneumonia Ondansetron (Zofran Odt) 4 MG TAB.RAPDIS 1 TAB SL TID PRN NAUSEA/VOMITING ( Reported) Polyethylene Glycol 3350 (Miralax) 17 GM POWD.PACK 1 PAC PO DAILY CONSTIPATION (Reported) dissolve in water Triage Note: PT SENT BY DR RAMIREZ DUE TO INCREASED PAIN, PT HAS BONE CANCER AND PER HAD 2 UNITS OF BLOOD ON THURSDAY DUE TO LOW H&H, PT PALE, NOTED TO BE IN ALOT OF PAIN. PT WAS SENT TO GET MORPHINE INJECTIONS. PER DR RAMIREZ CALLED DR WHITE Triage Nurses Notes Reviewed? yes Onset: Gradual Duration: worse persistent since (6 hours) Timing: recent history Injury Environment: home Severity: severe Severity Numbers: 8 Modifying Factors: Improves With: immobilization, medication (dilaudid). Worsens With: movement. HPI: Patient is a 61-year-old male who has metastatic prostate cancer presenting to the emergency department with chief complaint of diffuse pain. He reports that he normally takes by mouth Dilaudid for pain but hasn't been working today. Otherwise he called his oncologist and they instructed to take an additional Dilaudid pill. Patient still had no relief so they decided to come in for evaluation. Dr. acosta called in and spoke with Dr. White. He was recommending a dose of IV morphine. Denies any nausea or vomiting. Denies any trauma or falls. No chest pain or palpitations. (KRISTOPHER PÉREZ) Past History Travel History Traveled to [place] past 21 day No Medical History Any Pertinent Medical History? see below for history Neurological: NONE EENT: NONE Cardiovascular: NONE Respiratory: NONE Gastrointestinal: CONSTIPATION Hepatic: NONE Renal: NONE Musculoskeletal: ARTHRITIS METASTATIC CA TO BONE Psychiatric: NONE Endocrine: NONE Blood Disorders: NONE Cancer(s): METASTATIC PROSTATE CA BONE CA History of MRSA: No History of VRE: No History of CDIFF: No Surgical History Surgical History: non-contributory Psychosocial History Who do you live with Family Services at Home None What is your primary language [place] Tobacco Use: Never used ETOH Use: denies use Illicit Drug Use: denies illicit drug use Family History Family History, If Any: MOTHER (Diabetes mellitus). SISTER (Breast cancer). Hx Contributory? Yes (KRISTOPHER PÉREZ) Review of Systems Review of Systems Constitutional: Reports: malaise. Comments Review of systems: See HPI, All other systems negative. Constitutional, no chills fever or weight loss HEENT: No visual changes no sore throat no congestion Cardiovascular: No palpitation , orthopnea or ankle swelling Skin, no jaundice no rashes Respiratory: No dyspnea sputum or hemoptysis GI: No nausea no vomiting : No dysuria No hematuria Muscle skeletal: Positive back and neck pain. Neurologic: No numbness no confusion no alvarez Psych: No stress anxiety or depression,. Heme/endocrine: No bruising no bleeding no polyuria or polydipsia Immunology: No splenectomy or history of AIDS (KRISTOPHER PÉREZ) Physical Exam Physical Exam General Appearance: well developed/nourished, no apparent distress, alert, awake , comfortable Comments: Then person in no acute distress, appears fatigued HEENT: Pupils equally round and reactive to light and accommodation. Nose is atraumatic. Moist oral mucosa. Neck: Normal inspection, full range of motion Back: Tender to palpation over the paraspinal muscles of the thoracic and lumbar spine. Limited range of motion with flexion secondary to pain. Negative modified straight leg raise bilaterally. Cardiovascular: Regular rate and rhythms no murmurs rubs or gallops, normal JVP Respiratory: Chest is diffusely tender to palpation with ecchymosis noted over the right anterior chest. Ecchymosis is approximately 4 cm x 4 cm.. No respiratory distress.breath sounds diminished to auscultation bilaterally Abdomen: Soft, nontender nondistended, no appreciable organomegaly. Normal bowel sounds. No ascites Extremity: No edema, no calf tenderness to palpation, normal and equal pulses. Neuro: Alert oriented x3 Skin: No appreciable rash on exposed skin, skin is warm and dry. Psych: Mood and affect is normal, memory and judgment is normal. Core Measures ACS in differential dx? No CVA/TIA Diagnosis: No Severe Sepsis Present: No Septic Shock Present: No (SCOTT LMI,KRISTOPHER) Progress Differential Diagnoses I considered the following diagnoses in my evaluation of the patient: Pain secondary to metastatic disease, pneumonia, bronchitis, upper respiratory infection, atelectasis Plan of Care: Orders Procedure Date/time Status XRY-CHEST XRAY, PA AND LATERAL 01/03 2009 Active Diagnostic Imaging: Viewed by Me: Radiology Read. Discussed w/RAD: Radiology Read. Radiology Impression: PATIENT: RACQUEL RAO PRESENT AGE: 61 PATIENT ACCOUNT NO: [id number] : 56 LOCATION: [facility] ORDERING PHYSICIAN: KRISTOPHER LIM SERVICE DATE: 01/03/17 EXAM TYPE: RAD - XRY-CHEST XRAY, PA AND LATERAL EXAMINATION: CHEST 2 VIEWS CLINICAL INFORMATION: Cough. Prostate cancer. COMPARISON: 11/19/2016. TECHNIQUE: PA and lateral views of the chest were obtained. FINDINGS: The cardiac silhouette is not enlarged. A right sided port is in unchanged position. The mediastinal and hilar contours are unremarkable. There are neither pleural effusions nor pneumothoraces. There is extensive osseous metastatic disease. Several opacities overlying the left lung are more prominent than on the prior exam, but likely to correspond to metastatic disease. There is retrocardiac airspace disease in the posterior basal segment left lower lobe infiltrate. IMPRESSION: Left lower lobe infiltrate concerning for pneumonia. Extensive osseous metastatic disease. Recommendation is for a followup chest series to be obtained following treatment and/or resolution of symptoms to assure resolution of this appearance. DICTATED BY: WILFRED DAVISON MD DATE/TIME DICTATED:01/03/172038 OPERATIONS STAFF SPECIALIST SECURITY: MISTY DATE/TIME TRANSCRIBED:01/03/172038 CONFIDENTIAL, DO NOT COPY WITHOUT APPROPRIATE AUTHORIZATION. <Electronically signed in Other Vendor System> SIGNED BY: WILFRED DAVISON MD 01/03/172043 Initial ED EKG: none Comments: Patient medicated with IV morphine 4 mg on arrival for chronic pain. We will assess response in the next several minutes. Patient reporting improvement with 4 mA morphine, pain still present with ambulation and moving. Reports that he was able to get up and walked about a minute without difficulties but reports he was able cough up a distant mild sputum. Concern for pneumonia. Requesting chest x-ray. Patient is afebrile, oxygen saturation within normal range. Patient informed of x-ray results. Concerning for pneumonia in the left lower lobe lung. Patient will be treated with Avelox. Discussed with Dr. White, recommending patient be discharged home as this patient is immune compromised and should be outside of the hospital. Patient's vitals are stable. Pain is controlled after an additional 2 mg of morphine. They will follow up with primary care physician next week or return for worsening symptoms. (SCOTT LIM,KRISTOPHER) Departure Departure Time of Disposition: 2052 Disposition: HOME OR SELF CARE Condition: Stable Clinical Impression Primary Impression: Chronic pain Qualifiers: Chronic pain type: other chronic pain Qualified Code: G89.29 - Other chronic pain Secondary Impressions: Pneumonia Qualifiers: Pneumonia type: due to unspecified organism Laterality: left Lung location: lower lobe of lung Qualified Code: J18.1 - Lobar pneumonia, unspecified organism Referrals: SARAH ABRAHAM,PATRICE Lopez (PCP/Family) Additional Instructions: Follow-up with your primary care physician call to make an appointment. Take Avelox as prescribed to help with pneumonia. Use incentive spirometer as directed to help take deep breaths. Departure Forms: Customer Survey General Discharge Information Prescriptions: Current Visit Scripts Moxifloxacin HCl (Avelox) 1 TAB PO DAILY #10 TAB (KRISTOPHER PÉREZ) PA/CLERICAL ADJUSTER Co-Sign Statement Statement: ED Attending supervision documentation- [X] I saw and evaluated the patient. I have also reviewed all the pertinent lab results and diagnostic results. I agree with the findings and the plan of care as documented in the PA's/CLERICAL ADJUSTER's documentation. [] I have reviewed the ED Record and agree with the PA's/CLERICAL ADJUSTER's documentation. [] Additions or exceptions (if any) to the PAs/CLERICAL ADJUSTER's note and plan are summarized below: [] (TARSHA WHITE DO) Critical Care Note Critical Care Note Critical Care Time: non-applicable (KRISTOPHER PÉREZ)
[2017-01-03] MEDS ORDERED: FENTANYL1 EAC4 TOP (19:09)
[2017-01-03] MEDS ORDERED: DILAUDID4 M1 PO (19:10)
[2017-01-03] MEDS ORDERED: MELOXICAM15 M1 PO (19:11)
[2017-01-03] MEDS ORDERED: REMERON15 M2 PO (19:11)
--- NOTE | 2017-01-03 20:44 | RADIOLOGY REPORT ---
EXAMINATION: CHEST 2 VIEWS CLINICAL INFORMATION: Cough. Prostate cancer. COMPARISON: 11/19/2016. TECHNIQUE: PA and lateral views of the chest were obtained. FINDINGS: The cardiac silhouette is not enlarged. A right sided port is in unchanged position. The mediastinal and hilar contours are unremarkable. There are neither pleural effusions nor pneumothoraces. There is extensive osseous metastatic disease. Several opacities overlying the left lung are more prominent than on the prior exam, but likely to correspond to metastatic disease. There is retrocardiac airspace disease in the posterior basal segment left lower lobe infiltrate. IMPRESSION: Left lower lobe infiltrate concerning for pneumonia. Extensive osseous metastatic disease. Recommendation is for a followup chest series to be obtained following treatment and/or resolution of symptoms to assure resolution of this appearance.
[2017-01-03] MEDS ORDERED: AVELOX400 M1 PO (20:55)
[2017-01-03 21:03] VITALS: BP 117/60
== END 2017-01-03 21:17 ==
LOC: ERH 18:30
DX: G89.29 Other chronic pain (principal); J18.9 Pneumonia, unspecified organism
CPT/HCPCS: 96374; 96376